=== PATIENT | female | born 1970 | race Caucasian/White ===

== ENCOUNTER → 2021-03-25 16:09 | Outpatient (CLI) | payer MEDICAID, SELFPAY ==
--- NOTE | 2021-03-25 16:13 | XR_ITS ---
FINAL REPORT CLINICAL HISTORY: chronic foot pain; obesity; simulated weight bearing FINDINGS: 3 views of the right foot were obtained. There is no acute fracture or dislocation. There is mild hallux valgus deformity. A small plantar spur is present. There is an osteophyte or spur along the dorsal distal talus seen on the lateral view. IMPRESSION: Degenerative changes without acute process. Reviewed, Interpreted and Dictated by John Irving MD Transcribed by Juan Grissom Authenticated by John Irving MD on 03/25/2021 04:58:08 PM [facility]
== END ==
PROVIDERS: PCP Emergency Medicine; Visit Provider Podiatrist
DX: M79.671 Pain in right foot (principal)
CPT/HCPCS: 73630

== ENCOUNTER → 2021-04-22 13:16 | Outpatient (CLI) | payer MEDICAID, SELFPAY ==
--- NOTE | 2021-04-22 13:29 | XR_ITS ---
FINAL REPORT CLINICAL HISTORY: fracture follow up COMPARISON: March 25, 2021 FINDINGS: RIGHT FOOT: Three right bearing views of the right foot were obtained. There is no definite acute fracture or dislocation. There are mild degenerative changes. There is mild hallux valgus deformity. There is pes planus deformity. There is a small plantar calcaneal spur. There is a chronic deformity of the distal 5th metatarsal. There is no soft tissue abnormality. IMPRESSION: No definite acute bony fracture. Reviewed, Interpreted and Dictated by Matt Campos III, MD Transcribed by Bettye Miranda Authenticated by Matt Campos III, MD on 04/22/2021 03:09:46 PM [facility]
== END ==
PROVIDERS: PCP Emergency Medicine; Visit Provider Podiatrist
DX: M79.671 Pain in right foot (principal); S92.001A Unspecified fracture of right calcaneus, initial encounter for closed fracture
CPT/HCPCS: 73630

== ENCOUNTER 2021-06-09 12:16 | Inpatient (IN) | payer MEDICAID, SELFPAY ==
[2021-06-09] VITALS (17 sets, daily range): BP systolic 102–199; BP diastolic 71–125; PULSE 97–120; RESP 18–20; TEMP 37.3–38.3; O2SAT 90–96; BMI 39.5; BMI 38.7
[2021-06-09 13:42] LABS: Sodium 141 mmol/L (136-145)
[2021-06-09 13:44] LABS: Blood Urea Nitrogen 7 mg/dl (7-17); Creatinine Clearance Estimated 699 mL/min (50-200); Estimated Glomerular Filt Rate 372 ml/min (>60); GFR (African American) 450 ML/MIN (>60)
[2021-06-09 13:45] LABS: Alanine Aminotransferase 12 U/L (12-78); Albumin Level 1.5 g/dl (3.5-5.0); Albumin/Globulin Ratio 0.9 (1.1-1.8); Alkaline Phosphatase 30 U/L (38-126); Anion Gap 4.4 mEq/L (5-15); Aspartate Amino Transferase 17 U/L (14-36); Bilirubin,Total 0.4 mg/dl (0.2-1.3); Carbon Dioxide 13 mmol/L (22.0-30.0); Globulin 1.6 g/dL (1.3-3.2); Glucose 56 mg/dl (74-100); Total Protein,Serum 3.1 g/dl (6.3-8.2)
[2021-06-09 13:51] LABS: C-Reactive Protein 108.1 mg/L (0-4)
[2021-06-09 13:55] LABS: Calcium 3.8 mg/dl (8.4-10.2); Chloride 126 mmol/L (98-107); Potassium 2.4 mmoL/L (3.5-5.1)
[2021-06-09 13:59] LABS: Basophils # 0.1 K/mm3 (0-0.2); Basophils % 0.7 % (0.1-2.0); Eosinophils # 0.1 K/mm3 (0.0-0.4); Hematocrit 37.5 % (37.0-47.0); Hemoglobin 12.1 g/dL (12.2-16.2); Lymphocytes # 2.6 K/mm3 (0.7-4.5); Lymphocytes % 18.8 % (10-50); Mean Corpuscular HGB Conc 32.3 g/dL (31.8-35.4); Mean Corpuscular Hemoglobin 30.8 pg (27.0-31.2); Mean Corpuscular Volume 95.3 fl (81-99); Mean Platelet Volume 12.1 fl (7.4-10.4); Monocytes # 0.9 K/mm3 (0.1-1.0); Monocytes % 6.4 % (1.7-9.3); Neutrophils % 73.2 % (37.0-80.0); Platelet Count 151 K/mm3 (142-424); Red Blood Count 3.94 M/mm3 (4.20-5.40); Red Cell Distribution Width 14.5 % (11.5-17.5); White Blood Count 13.7 K/mm3 (4.8-10.8)
--- NOTE | 2021-06-09 15:13 | HMH.EDGENADL ---
ED Disposition Clinical Impression: Cellulitis of right leg, Hypocalcemia, Hypokalemia Disposition: Admitted As Inpatient Condition on Discharge: Fair - Critical Care Critical Care Time: No Attestation: On 06/09/21, the high probability of a clinically significant, sudden or life threatening deterioration of the following system(s) required my full and direct attention, intervention and personal management. The time I documented below is in addition to time spent performing reported procedures but includes the following listed in this critical care notation. Medical Decision Making - [place] Inquiry Pt receiving controlled substance: No Vital Signs: 06/09/21 12:17 06/09/21 12:22 06/09/21 12:30 Temperature 100.0 F H Temperature Source Oral Pulse Rate 99 H 102 H Pulse Rate [Left Radial] 97 H Respiratory Rate 20 Blood Pressure 102/71 L 149/78 H Blood Pressure [Right Arm] 102/71 L Blood Pressure Mean Blood Pressure Mean [Right Arm] 81 Blood Pressure Source [Right Arm] Automatic Cuff Blood Pressure Position [Right Arm] Sitting 02 Sat by Pulse Oximetry 95 90 L 90 L Oxygen Delivery Method Room Air 06/09/21 13:00 06/09/21 13:41 06/09/21 13:44 Temperature Temperature Source Pulse Rate 102 H 105 H 100 H Pulse Rate [Left Radial] Respiratory Rate Blood Pressure 163/90 H 199/125 H 160/84 H Blood Pressure [Right Arm] Blood Pressure Mean 110 136 109 Blood Pressure Mean [Right Arm] Blood Pressure Source [Right Arm] Blood Pressure Position [Right Arm] 02 Sat by Pulse Oximetry 95 94 L 94 L Oxygen Delivery Method 06/09/21 14:00 06/09/21 14:28 06/09/21 14:30 Temperature Temperature Source Pulse Rate 104 H 103 H Pulse Rate [Left Radial] Respiratory Rate Blood Pressure 167/79 H 147/124 H 156/82 H Blood Pressure [Right Arm] Blood Pressure Mean 108 131 106 Blood Pressure Mean [Right Arm] Blood Pressure Source [Right Arm] Blood Pressure Position [Right Arm] 02 Sat by Pulse Oximetry 92 L 94 L Oxygen Delivery Method 06/09/21 15:00 06/09/21 15:54 06/09/21 15:59 Temperature 101.0 F H Temperature Source Oral Pulse Rate 108 H 108 H Pulse Rate [Left Radial] Respiratory Rate Blood Pressure 141/84 H 167/89 H Blood Pressure [Right Arm] Blood Pressure Mean 96 115 Blood Pressure Mean [Right Arm] Blood Pressure Source [Right Arm] Blood Pressure Position [Right Arm] 02 Sat by Pulse Oximetry Oxygen Delivery Method 06/09/21 16:30 06/09/21 17:00 Temperature Temperature Source Pulse Rate 105 H 107 H Pulse Rate [Left Radial] Respiratory Rate Blood Pressure 187/117 H 183/95 H Blood Pressure [Right Arm] Blood Pressure Mean 140 124 Blood Pressure Mean [Right Arm] Blood Pressure Source [Right Arm] Blood Pressure Position [Right Arm] 02 Sat by Pulse Oximetry 95 Oxygen Delivery Method - Lab Data Lab Results 06/09/21 12:20: WBC 13.7 H, RBC 3.94 L, Hgb 12.1 L, Hct 37.5, MCV 95.3, MCH 30.8, MCHC 32.3, RDW 14.5, Plt Count 151, MPV 12.1 H, Neut % (Auto) 73.2, Lymph % (Auto) 18.8, [place] % (Auto) 6.4, Eos % (Auto) 1.0, Baso % (Auto) 0.7, Neut # (Auto) 10.0 H, Lymph # (Auto) 2.6, [place] # (Auto) 0.9, Eos # (Auto) 0.1, Baso # (Auto) 0.1, ESR 39 H 06/09/21 12:20: Sodium 141, Potassium 2.4 L*, Chloride 126 H, Carbon Dioxide 13 L, Anion Gap 4.4 L, BUN 7, Creatinine 0.20 L, Estimated Creat Clear 699 H, Estimated GFR 372, Est GFR ( Amer) 450, Glucose 56 L, Calcium 3.8 L*, Total Bilirubin 0.4, AST 17, ALT 12, Alkaline Phosphatase 30 L, C-Reactive Protein 108.1 H, Total Protein 3.1 L, Albumin 1.5 L, Globulin 1.6, Albumin/Globulin Ratio 0.9 L 06/09/21 12:20: Lactate 1.0 06/09/21 12:20: Magnesium 1.6 06/09/21 12:20: Phosphorus 3.9 06/09/21 12:20: PTH Intact 62.4 H 06/09/21 15:05: SARS-CoV-2 (PCR) Not detected, Influenza A Untype (PCR) Not detected, Influenza Type B (PCR) Not detected Result diagrams:
[2021-06-09 15:15] LABS: Erythrocyte Sedimentation Rate 39 mm/hr (0-30)
[2021-06-09 15:15] LABS: Coronavirus 19, PCR Not Detected (NotDetected); Influenza A, PCR Not Detected (NotDetected); Influenza B, PCR Not Detected (NotDetected)
--- NOTE | 2021-06-09 15:52 | ECG_ITS ---
APPROVED REPORT Exam: Resting ECG HR:107 bpm ECG Measurements Heart Rate 107 AXES OH 160 P 29 QRSd 85 QRS 82 QT 310 T 71 QTc 373 Conclusion SINUS TACHYCARDIA ABNORMAL RHYTHM ECG UNCONFIRMED REPORT Electronically signed by : Gary Hines MD 06/12/2021 18:14:33
--- NOTE | 2021-06-09 15:58 | PC.NURSE ---
Checked temp oral 101.0
[2021-06-09 16:01] LABS: Phosphorous 3.9 mg/dl (2.5-4.5)
[2021-06-09 16:15] LABS: Intact Parathyroid Hormone 62.4 pg/mL (7.5-53.5)
[2021-06-09 16:24] LABS: Magnesium 1.6 mg/dl (1.6-2.3)
--- NOTE | 2021-06-09 16:26 | HMH.HP ---
*Admission Date: 06/09/21 *Chief complaint: leg swelling *History of present illness: 51 yr old female presents to ed with Complains of swelling, pain, redness right leg from [facility]. Patient states she thinks she was bit by something a couple of days ago. She said it awakened her from sleep when she felt a sting on the top of her right foot. Now has swelling redness and pain of her right lower extremity from the foot up to the knee. Patient states before she felt the sting she had begun running fevers on Thursday up to 102 degrees. No history of cellulitis of the lower extremity in the past. Patient was found to have cellulites and electrolyte abnormal and admitted for iv antibiotics and monitoring of labs [facility] History I have reviewed the patient's past medical history: Yes Medical History: Reports:: Anxiety, Depression, Diabetes Mellitus Type 2, Gastroesophageal Reflux Disease(GERD), Migraine *Have you ever received a pneumonia vaccine?: No *Have you received a flu vaccine this season?: Yes Other Medical History: Reports: Arthritis Other Surgeries: Yes: Cholecystectomy, , Hysterectomy-Total - *Social History Smoking Status: Current every day smoker Alcohol Intake: never *Occupational Status:: disabled *Travel in the last 8 weeks: None - Psychiatric History Pschychiatric History:: Reports:: Anxiety, Depression Family Hx:: No significant family history Review of Systems - Review of Systems Review of systems:: pertinent systems reviewed and negative unless documented below - Constitutional Reports fatigue, Reports fever(s), Denies body ache(s) - Eyes Denies blurry vision - ENT Denies bleeding gums - *Cardiovascular Denies chest pain at rest - *Respiratory Denies chest congestion - *Gastrointestinal Denies abdominal pain - *Genitourinary Denies abnormal periods, Denies urinary incontinence - *Musculoskeletal Denies abnormal walking - Integumentary/Breasts Reports wounds, Reports other, Denies bleeding lesions - *Neurologic Denies abnormal walking - Psychiatric Denies lack of enjoyment - Endocrine Denies excessive sweating - Hematologic/Lymphatic Denies easy bruising Meds Home Medications Medication Instructions Recorded Confirmed Type hydroxyzine pamoate 50 mg capsule 50 mg PO Q8 PRN cap 03/25/21 06/09/21 History metformin 1,000 mg tablet 500 mg PO DAILY tab 03/25/21 06/09/21 History paroxetine HCl 30 mg tablet 30 mg PO DAILY tab 03/25/21 06/09/21 History quetiapine 400 mg tablet,extended 400 mg PO BID tab 03/25/21 06/09/21 History release 24 hr Gabapentin 300 mg PO TID 06/09/21 06/09/21 History Allergies Allergy/AdvReac Type Severity Reaction Status Date / Time CODEINE Allergy Unknown Uncoded 03/10/17 15:39 PCN (PENICILLIN) Allergy Unknown Uncoded 03/10/17 15:39 Exam Vital signs and Labs for Last 24 Hours: Temp Pulse Resp BP Pulse Ox 101.0 F H 103 H 20 156/82 H 94 L 06/09/21 15:59 06/09/21 14:28 06/09/21 12:17 06/09/21 14:30 06/09/21 14:28 Laboratory Results - last 24 hr 06/09/21 12:20: WBC 13.7 H, RBC 3.94 L, Hgb 12.1 L, Hct 37.5, MCV 95.3, MCH 30.8, MCHC 32.3, RDW 14.5, Plt Count 151, MPV 12.1 H, Neut % (Auto) 73.2, Lymph % (Auto) 18.8, [place] % (Auto) 6.4, Eos % (Auto) 1.0, Baso % (Auto) 0.7, Neut # (Auto) 10.0 H, Lymph # (Auto) 2.6, [place] # (Auto) 0.9, Eos # (Auto) 0.1, Baso # (Auto) 0.1, ESR 39 H 06/09/21 12:20: Sodium 141, Potassium 2.4 L*, Chloride 126 H, Carbon Dioxide 13 L, Anion Gap 4.4 L, BUN 7, Creatinine 0.20 L, Estimated Creat Clear 699 H, Estimated GFR 372, Est GFR ( Amer) 450, Glucose 56 L, Calcium 3.8 L*, Total Bilirubin 0.4, AST 17, ALT 12, Alkaline Phosphatase 30 L, C-Reactive Protein 108.1 H, Total Protein 3.1 L, Albumin 1.5 L, Globulin 1.6, Albumin/Globulin Ratio 0.9 L 06/09/21 12:20: Lactate 1.0 06/09/21 12:20: Phosphorus 3.9 06/09/21 12:20: PTH Intact 62.4 H 06/09/21 15:05: SARS-CoV-2 (PCR) Not dete
[2021-06-09 17:26] LABS: Microscopic, Urine URINE MICROSCOPIC (MICROSCOPIC)
--- NOTE | 2021-06-09 17:29 | PC.NURSE ---
report called to Trudi MARTINEZ
[2021-06-09 17:39] LABS: Appearance,Urine CLEAR (Clear); Bilirubin,Urine Negative (Negative); Blood, Urine Negative (Negative); Color,Urine YELLOW (Yellow); Glucose,Urine (UA) Negative (Negative); Ketones,Urine Negative (Negative); Leukocyte Esterase,Urine TRACE (Negative); Nitrate,Urine Negative (Negative); PH,Urine 6.5 (5.0-8.5); Protein,Urine Negative (Negative); Specific Gravity, Urine 1.015 (1.005-1.030); Urobilinogen,Urine 0.2 EU/dl (0.2)
[2021-06-09 17:58] LABS: Bacteria,Urine Trace /lpf; RBC,Urine Occasional #/hpf (0-3)
--- NOTE | 2021-06-09 21:35 | PC.NURSE ---
Contacted [facility] and spoke with Laila, Pharmacist. Pt has quetiapine 400 ER ordered BID. We have regular quetiapine 100mg. Pharmacist says go ahead and give regular quetiapine for tonight.
[2021-06-09 22:16] LABS: Chloride 105 mmol/L (98-107)
[2021-06-09 22:17] LABS: Sodium 139 mmol/L (136-145)
[2021-06-09 22:19] LABS: Blood Urea Nitrogen 11 mg/dl (7-17); Creatinine Clearance Estimated 195 mL/min (50-200); Estimated Glomerular Filt Rate 88 ml/min (>60); GFR (African American) 106 ML/MIN (>60)
[2021-06-09 22:20] LABS: Calcium 7.9 mg/dl (8.4-10.2); Carbon Dioxide 30 mmol/L (22.0-30.0); Glucose 119 mg/dl (74-100)
[2021-06-10] VITALS: BP 126/68; PULSE 100; PULSE 102; RESP 20; TEMP 37.1; O2SAT 96
[2021-06-10 04:00] VITALS: BP 130/66; PULSE 102; RESP 18; TEMP 37.1; O2SAT 96
--- NOTE | 2021-06-10 04:41 | PC.NURSE ---
Late entry - Pt had K+ runs infusing at beginning of shift. Pt has one IV in the L AC, that occludes frequently d/t position. Pt refused to let us start another. IV antibiotics late. Called [facility] pharmacist for scheduling of antibiotics.
[2021-06-10 05:52] VITALS: BMI 38.9
--- NOTE | 2021-06-10 07:00 | CA_ITS ---
FINAL REPORT TECHNIQUE: Ultrasound images of the deep venous system were obtained from the right groin to the calf veins. CLINICAL HISTORY: swollen right leg, redness, pain in RLE. DM, GERD, morbid obesity. Patient denies trauma. States she felt a sting last week on this leg and then redness and pain began. FINDINGS: The deep venous system is normally compressible. Normal flow is identified. Note is made of a lymph node in the right groin measuring up to 4.4 cm. IMPRESSION: No evidence of right lower extremity DVT. Reviewed, Interpreted and Dictated by John Irving MD Transcribed by Bettye Miranda Authenticated by John Irving MD on 06/10/2021 10:42:[address] [facility]
[2021-06-10 07:10] LABS: Anion Gap 5.6 mEq/L (5-15); Blood Urea Nitrogen 9 mg/dl (7-17); Calcium 8.1 mg/dl (8.4-10.2); Carbon Dioxide 28 mmol/L (22.0-30.0); Chloride 108 mmol/L (98-107); Creatinine Clearance Estimated 273 mL/min (50-200); Estimated Glomerular Filt Rate 129 ml/min (>60); GFR (African American) 156 ML/MIN (>60); Glucose 137 mg/dl (74-100); Potassium 3.6 mmoL/L (3.5-5.1); Sodium 138 mmol/L (136-145)
--- NOTE | 2021-06-10 07:22 | P.CONPHA_ITS ---
[facility] Pharmacy VTE Monitoring - Patient Demographics Admission date: 06/09/21 Report Date: 06/10/21 Time: 07:22 Allergies/Adverse Reactions: Patient Allergies CODEINE Allergy (Unknown, Uncoded 03/10/17 15:39) PCN (PENICILLIN) Allergy (Unknown, Uncoded 03/10/17 15:39) Height: 1.85 m Weight: 133.129 kg Patient Problems: Current Active Problems Cellulitis of right leg (Acute) Hypocalcemia (Acute) Hypokalemia (Acute) - VTE Risk Labs: VTE Related Lab Results Hgb 12.1 g/dL (12.2-16.2) L 06/09/21 12:20 Hct 37.5 % (37.0-47.0) 06/09/21 12:20 Plt Count 151 K/mm3 (142-424) 06/09/21 12:20 BUN 9 mg/dl (7-17) 06/10/21 06:33 Creatinine 0.50 mg/dl (0.52-1.04) L D 06/10/21 06:33 Estimated Creat Clear 273 mL/min (50-200) 06/10/21 06:33 VTE Score: 2 - Prophylaxis VTE Prophylaxis Ordered?: Yes Types of VTE Prophylaxis: TEDS Knee High, Pharmacological Location of Applied Device: Bilateral Lower Extremeties Pharmacologic Type: Enoxaparin
[2021-06-10 07:29] VITALS: BP 159/81; PULSE 110; RESP 18; TEMP 37.2; O2SAT 94
--- NOTE | 2021-06-10 07:55 | HMH.PHAINT ---
MEDICATION RECONCILIATION COMPLETED ON PATIENT USING [facility]. -PEE KNOX, JACKD
--- NOTE | 2021-06-10 10:28 | SW/DCPLANNER ---
This patient currently resides at [facility]. I spoke with Travon at [facility]: patient does well at this facility and they anticipate patient can return pending no setbacks. I will continue to follow up with Travon until patient is medically stable for discharge. Discharge date is unknown at this time.
[2021-06-10 10:38] VITALS: BMI 38.8
[2021-06-10 10:59] VITALS: BP 160/65; PULSE 110; RESP 18; TEMP 36.8; O2SAT 93
--- NOTE | 2021-06-10 12:45 | HMH.ACPN2 ---
Internal Medicine - PN: Subj *Date: 06/10/21 *Time: 08:00 Interval history: pt laying in bed states no c/o Exam Vital signs and Labs for Last 24 Hours: Temp Pulse Resp BP Pulse Ox 98.2 F 110 H 18 160/65 H 93 L 06/10/21 10:59 06/10/21 10:59 06/10/21 10:59 06/10/21 10:59 06/10/21 10:59 Laboratory Results - last 24 hr 06/09/21 12:20: WBC 13.7 H, RBC 3.94 L, Hgb 12.1 L, Hct 37.5, MCV 95.3, MCH 30.8, MCHC 32.3, RDW 14.5, Plt Count 151, MPV 12.1 H, Neut % (Auto) 73.2, Lymph % (Auto) 18.8, [place] % (Auto) 6.4, Eos % (Auto) 1.0, Baso % (Auto) 0.7, Neut # (Auto) 10.0 H, Lymph # (Auto) 2.6, [place] # (Auto) 0.9, Eos # (Auto) 0.1, Baso # (Auto) 0.1, ESR 39 H 06/09/21 12:20: Sodium 141, Potassium 2.4 L*, Chloride 126 H, Carbon Dioxide 13 L, Anion Gap 4.4 L, BUN 7, Creatinine 0.20 L, Estimated Creat Clear 699 H, Estimated GFR 372, Est GFR ( Amer) 450, Glucose 56 L, Calcium 3.8 L*, Total Bilirubin 0.4, AST 17, ALT 12, Alkaline Phosphatase 30 L, C-Reactive Protein 108.1 H, Total Protein 3.1 L, Albumin 1.5 L, Globulin 1.6, Albumin/Globulin Ratio 0.9 L 06/09/21 12:20: Lactate 1.0 06/09/21 12:20: Magnesium 1.6 06/09/21 12:20: Phosphorus 3.9 06/09/21 12:20: PTH Intact 62.4 H 06/09/21 15:05: SARS-CoV-2 (PCR) Not detected, Influenza A Untype (PCR) Not detected, Influenza Type B (PCR) Not detected 06/09/21 17:18: Urine Color Yellow, Urine Appearance Clear, Urine pH 6.5, Ur Specific [place] 1.015, Urine Protein Negative, Urine Glucose (UA) Negative, Urine Ketones Negative, Urine Blood Negative, Urine Nitrate Negative, Urine Bilirubin Negative, Urine Urobilinogen 0.2, Ur Leukocyte Esterase Trace, Urine RBC Occasional, Urine WBC 3-5, Ur Squamous Epith Cells 5-10, Urine Bacteria Trace 06/09/21 21:55: Sodium 139, Potassium 4.0 D, Chloride 105, Carbon Dioxide 30, Anion Gap 8.0, BUN 11 D, Creatinine 0.70 D, Estimated Creat Clear 195, Estimated GFR 88, Est GFR ( Amer) 106 D, Glucose 119 H D, Calcium 7.9 L 06/10/21 06:33: Sodium 138, Potassium 3.6, Chloride 108 H, Carbon Dioxide 28, Anion Gap 5.6, BUN 9, Creatinine 0.50 L D, Estimated Creat Clear 273, Estimated GFR 129, Est GFR ( Amer) 156 D, Glucose 137 H, Calcium 8.1 L I & O for Last 24 hours: Intake & Output 06/08/21 06/09/21 06/10/21 06/11/21 11:59 11:59 11:59 11:59 Intake Total 480 / 480 160 / 160 Balance 480 / 480 160 / 160 Weight 293 lb 3.437 oz - Constitutional no acute distress, obese - *Routine HEENT Exam Head: Present: normocephalic Eye: Present: PERRL ENT: Present: mucous membranes moist - *Routine Neck Exam Present: supple. Absent: lymphadenopathy - *Routine Respiratory Exam Present: CTA bilaterally - *Routine Cardiovascular Exam Present: RRR - *Routine Abdominal Exam Present: soft, normoactive bowel sounds - *Routine Extremities Exam Present: normal capillary refill. Absent: cyanosis, clubbing, edema Comments: redness and swelling, redness up past knee - *Routine Skin Exam Present: warm. Absent: rash Comments: dark area to ankle - *Routine Neurological Exam Present: alert, oriented X3 Assessment and Plan (1) Cellulitis of right leg Status: Acute Category: Medical Code(s): L03.115 - Cellulitis of right lower limb (2) Hypocalcemia Status: Acute Category: Medical Code(s): E83.51 - Hypocalcemia (3) Hypokalemia Status: Acute Category: Medical Code(s): E87.6 - Hypokalemia - Assessment and plan all Dx Assessment and Plan for all problems:: rounded with dr espinosa all orders per dr espinosa iv antibiotics
[2021-06-10 15:11] VITALS: BP 124/62; PULSE 101; RESP 18; TEMP 37; O2SAT 95
--- NOTE | 2021-06-10 16:14 | PC.NURSE ---
patient has done well this shift. leg remains red and tight. open callouses noted on bottom of foot. more complaints with it towards end of shift. vitals stable. ambulates to bathroom with stand by assistance. tolerating diet. no other complaints noted
[2021-06-10 20:00] VITALS: BP 136/64; PULSE 68; RESP 17; TEMP 36.7; O2SAT 96
[2021-06-11 00:08] LABS: Vancomycin,Trough 14.9 ug/mL (5.0-10.0)
--- NOTE | 2021-06-11 00:23 | PC.NURSE ---
Addendum entered by Savita Pisano RN 06/11/21 00:42: Verified piggybacking Vanc to 1/2NS with Sagar from [facility]; compatible Original Note: Paged [facility] at 0025 and spoke with Sagar to report a Vancomycin trough of 14.9; okay to give the midnight dose.
--- NOTE | 2021-06-11 03:19 | PC.NURSE ---
Alicia from lab called with a preliminary positive blood culture on patient at 314 Name, , and result verified x2/ MD on called made aware at 318
[2021-06-11 04:00] VITALS: BP 141/73; PULSE 100; RESP 17; TEMP 36.6; O2SAT 96
[2021-06-11 04:39] LABS: Basophils # 0.1 K/mm3 (0-0.2); Basophils % 0.5 % (0.1-2.0); Eosinophils # 0.1 K/mm3 (0.0-0.4); Eosinophils % 0.3 % (0.1-12.0); Hematocrit 33.6 % (37.0-47.0); Hemoglobin 11.1 g/dL (12.2-16.2); Lymphocytes # 2.8 K/mm3 (0.7-4.5); Lymphocytes % 17.1 % (10-50); Mean Corpuscular HGB Conc 32.9 g/dL (31.8-35.4); Mean Corpuscular Hemoglobin 31.2 pg (27.0-31.2); Mean Corpuscular Volume 94.9 fl (81-99); Mean Platelet Volume 11.2 fl (7.4-10.4); Monocytes % 5.8 % (1.7-9.3); Neutrophils # 12.5 K/mm3 (1.8-7.8); Neutrophils % 76.3 % (37.0-80.0); Platelet Count 174 K/mm3 (142-424); Red Blood Count 3.54 M/mm3 (4.20-5.40); Red Cell Distribution Width 14.7 % (11.5-17.5); White Blood Count 16.4 K/mm3 (4.8-10.8)
[2021-06-11 04:44] LABS: MANUAL DIFFERENTIAL MANUAL DIFFERENTIAL (MANUAL DIFF)
[2021-06-11 04:49] LABS: Anion Gap 9.3 mEq/L (5-15); Blood Urea Nitrogen 8 mg/dl (7-17); Calcium 7.9 mg/dl (8.4-10.2); Carbon Dioxide 24 mmol/L (22.0-30.0); Chloride 107 mmol/L (98-107); Creatinine Clearance Estimated 273 mL/min (50-200); Estimated Glomerular Filt Rate 129 ml/min (>60); GFR (African American) 156 ML/MIN (>60); Glucose 151 mg/dl (74-100); Potassium 3.3 mmoL/L (3.5-5.1); Sodium 137 mmol/L (136-145)
[2021-06-11 04:55] LABS: Vancomycin,Peak 25.1 ug/ml (11-39)
[2021-06-11 05:27] LABS: Eosinophils % 2 % (0-3); Lymphocytes % 23 % (10-50); Monocytes % 2 % (2-9); Neutrophils % 73 % (42-76); Platelet Estimate Normal; RBC Morphology Normal; Total Cells Counted 100
[2021-06-11 05:35] VITALS: BMI 38.9
[2021-06-11 08:00] VITALS: BP 140/78; PULSE 71; RESP 16; TEMP 37.1; O2SAT 96
--- NOTE | 2021-06-11 09:20 | P.CONPHA_ITS ---
- Pharmacy Consult Date: 06/11/21 Time: 09:20 Referring provider: YUNIEL Reason for Consult:: monitor vancomycin therapy Allergies and ADEs:: Allergies Allergy/AdvReac Type Severity Reaction Status Date / Time nut - unspecified Allergy Severe Swelling Verified 06/11/21 06:08 of Lip/Tongue/Throat CODEINE Allergy Unknown Uncoded 03/10/17 15:39 PCN (PENICILLIN) Allergy Unknown Uncoded 03/10/17 15:39 Home Medications:: Home Medications Medication Instructions Recorded Confirmed Type hydroxyzine pamoate 50 mg capsule 50 mg PO TIDP PRN cap 03/25/21 06/10/21 History paroxetine HCl 30 mg tablet 30 mg PO DAILY tab 03/25/21 06/09/21 History quetiapine 400 mg tablet,extended 400 mg PO BID tab 03/25/21 06/09/21 History release 24 hr Gabapentin 300 mg PO TID 06/09/21 06/09/21 History Acetaminophen [Acetaminophen 325mg 650 mg PO Q8HP PRN 06/10/21 06/10/21 History tab] Ibuprofen [Ibuprofen 600mg 600 mg PO Q6HP PRN 06/10/21 06/10/21 History Tablet] Loperamide HCl [Anti-Diarrheal] 2 mg PO Q6HP PRN 06/10/21 06/10/21 History Metformin HCl 500 mg PO HS 06/10/21 06/10/21 History ondansetron HCL [Ondansetron 4mg 4 mg PO QIDP PRN 06/10/21 06/10/21 History tab*] Height: 1.85 m Weight: 133.311 kg Laboratory Results:: Laboratory Results - last 24 hr 06/10/21 23:35: Vancomycin Trough 14.9 H 06/11/21 04:20: Vancomycin Peak 25.1 06/11/21 04:20: WBC 16.4 H, RBC 3.54 L, Hgb 11.1 L, Hct 33.6 L, MCV 94.9, MCH 31.2, MCHC 32.9, RDW 14.7, Plt Count 174, MPV 11.2 H, Neut % (Auto) 76.3, Lymph % (Auto) 17.1, [place] % (Auto) 5.8, Eos % (Auto) 0.3, Baso % (Auto) 0.5, Neut # (Auto) 12.5 H, Lymph # (Auto) 2.8, [place] # (Auto) 1.0, Eos # (Auto) 0.1, Baso # (Auto) 0.1, Total Counted 100, Neutrophils % (Manual) 73, Lymphocytes % (Manual) 23, Monocytes % (Manual) 2, Eosinophils % (Manual) 2, Platelet Estimate Normal, RBC Morphology Normal 06/11/21 04:20: Sodium 137, Potassium 3.3 L, Chloride 107, Carbon Dioxide 24, Anion Gap 9.3, BUN 8, Creatinine 0.50 L, Estimated Creat Clear 273, Estimated GFR 129, Est GFR ( Amer) 156, Glucose 151 H, Calcium 7.9 L Medical History: Reports:: Anxiety, Depression, Gastroesophageal Reflux Disease(GERD), Migraine Denies:: Cancer, Diabetes Mellitus Type 1, Diabetes Mellitus Type 2, MRSA Assessment and Plan (1) Cellulitis of right leg Status: Acute Category: Medical Code(s): L03.115 - Cellulitis of right lower limb (2) Hypocalcemia Status: Acute Category: Medical Code(s): E83.51 - Hypocalcemia (3) Hypokalemia Status: Acute Category: Medical Code(s): E87.6 - Hypokalemia - Assessment and plan all Dx Assessment and Plan for all problems:: Trough and peak drawn overnight. Appropriate levels, will continue vancomycin 1750mg q0yrary. Pharmacy will follow daily
--- NOTE | 2021-06-11 09:33 | HMH.ACPN2 ---
Internal Medicine - PN: Subj *Date: 06/11/21 *Time: 17:18 Interval history: 51-year-old female patient resting quietly in bed she denies any chest pain or shortness of breath, she reports pain is at a tolerable level. Right lower extremity redness and edema appears better today than yesterday. She reports she has been out of bed and up to chair for meals. Venous Doppler right lower extremity negative for DVT. Exam Vital signs and Labs for Last 24 Hours: Temp Pulse Resp BP Pulse Ox 98.7 F 71 16 140/78 96 06/11/21 08:00 06/11/21 08:00 06/11/21 08:00 06/11/21 08:00 06/11/21 08:00 Laboratory Results - last 24 hr 06/10/21 23:35: Vancomycin Trough 14.9 H 06/11/21 04:20: Vancomycin Peak 25.1 06/11/21 04:20: WBC 16.4 H, RBC 3.54 L, Hgb 11.1 L, Hct 33.6 L, MCV 94.9, MCH 31.2, MCHC 32.9, RDW 14.7, Plt Count 174, MPV 11.2 H, Neut % (Auto) 76.3, Lymph % (Auto) 17.1, [place] % (Auto) 5.8, Eos % (Auto) 0.3, Baso % (Auto) 0.5, Neut # (Auto) 12.5 H, Lymph # (Auto) 2.8, [place] # (Auto) 1.0, Eos # (Auto) 0.1, Baso # (Auto) 0.1, Total Counted 100, Neutrophils % (Manual) 73, Lymphocytes % (Manual) 23, Monocytes % (Manual) 2, Eosinophils % (Manual) 2, Platelet Estimate Normal, RBC Morphology Normal 06/11/21 04:20: Sodium 137, Potassium 3.3 L, Chloride 107, Carbon Dioxide 24, Anion Gap 9.3, BUN 8, Creatinine 0.50 L, Estimated Creat Clear 273, Estimated GFR 129, Est GFR ( Amer) 156, Glucose 151 H, Calcium 7.9 L I & O for Last 24 hours: Intake & Output 06/08/21 06/09/21 06/10/21 06/11/21 23:59 23:59 23:59 23:59 Intake Total 1000 / 1000 902 / 902 Output Total 400 / 400 Balance 1000 / 1000 502 / 502 Weight 293 lb 9 oz 293 lb 3.437 oz 293 lb 14.4 oz Microbiology Reports for the Last 24 Hours: Microbiology 06/09/21 12:20 Blood Blood Culture - Preliminary - Constitutional no acute distress, obese, chronically ill appearing - *Routine HEENT Exam Head: Present: normocephalic Eye: Present: EOMI ENT: Present: mucous membranes moist - *Routine Neck Exam Present: trachea midline. Absent: tracheal deviation - *Routine Respiratory Exam Present: CTA bilaterally. Absent: accessory muscle use - *Routine Cardiovascular Exam Present: RRR - *Routine Abdominal Exam Present: soft, normoactive bowel sounds. Absent: tenderness, firm - *Routine Extremities Exam Present: edema, pulses intact, tenderness. Absent: cyanosis Comments: Right lower extremity redness/edema/warmth foot to just above the knee - *Routine Skin Exam Present: intact, erythema, dry. Absent: cyanosis Comments: Dark area to right outer ankle - Routine Psychiatric Exam Present: normal affect, normal thought process. Absent: auditory hallucinations Assessment and Plan (1) Cellulitis of right leg Status: Acute Category: Medical Code(s): L03.115 - Cellulitis of right lower limb (2) Hypocalcemia Status: Acute Category: Medical Code(s): E83.51 - Hypocalcemia (3) Hypokalemia Status: Acute Category: Medical Code(s): E87.6 - Hypokalemia (4) Severe obesity (BMI 35.0-39.9) with comorbidity Status: Acute Category: Medical Code(s): E66.01 - Morbid (severe) obesity due to excess calories - Assessment and plan all Dx Assessment and Plan for all problems:: Rounded with Dr. Street, all orders per Dr. Street: 1. Continue current medical regimen 2. Up to chair for all meals 3. Out of bed ambulating in room
[2021-06-11 12:00] VITALS: BP 129/64; PULSE 101; RESP 19; TEMP 36.7; O2SAT 95
[2021-06-11 16:00] VITALS: BP 149/76; PULSE 103; RESP 18; TEMP 37.3; O2SAT 93
[2021-06-11 20:00] VITALS: BP 132/78; PULSE 105; RESP 20; TEMP 37.5; O2SAT 94
[2021-06-12] VITALS: BP 112/73; PULSE 110; RESP 16; TEMP 36.6; O2SAT 93
[2021-06-12 04:00] VITALS: BP 121/70; PULSE 93; RESP 20; TEMP 36.9; O2SAT 90
[2021-06-12 04:59] VITALS: BMI 39.4
[2021-06-12 07:20] LABS: Anion Gap 7.2 mEq/L (5-15); Blood Urea Nitrogen 6 mg/dl (7-17); Carbon Dioxide 29 mmol/L (22.0-30.0); Chloride 107 mmol/L (98-107); Creatinine Clearance Estimated 278 mL/min (50-200); Estimated Glomerular Filt Rate 129 ml/min (>60); GFR (African American) 156 ML/MIN (>60); Glucose 117 mg/dl (74-100); Potassium 3.2 mmoL/L (3.5-5.1); Sodium 140 mmol/L (136-145)
[2021-06-12 07:27] LABS: Basophils # 0.1 K/mm3 (0-0.2); Basophils % 0.7 % (0.1-2.0); Eosinophils # 0.1 K/mm3 (0.0-0.4); Eosinophils % 0.7 % (0.1-12.0); Hematocrit 34.4 % (37.0-47.0); Hemoglobin 10.7 g/dL (12.2-16.2); Lymphocytes # 2.9 K/mm3 (0.7-4.5); Lymphocytes % 19.1 % (10-50); Mean Corpuscular HGB Conc 31.1 g/dL (31.8-35.4); Mean Corpuscular Hemoglobin 30.2 pg (27.0-31.2); Mean Corpuscular Volume 97.1 fl (81-99); Mean Platelet Volume 10.7 fl (7.4-10.4); Monocytes # 0.7 K/mm3 (0.1-1.0); Monocytes % 4.3 % (1.7-9.3); Neutrophils # 11.3 K/mm3 (1.8-7.8); Neutrophils % 75.2 % (37.0-80.0); Platelet Count 211 K/mm3 (142-424); Red Blood Count 3.54 M/mm3 (4.20-5.40); Red Cell Distribution Width 14.7 % (11.5-17.5); White Blood Count 15.1 K/mm3 (4.8-10.8)
[2021-06-12 07:32] LABS: MANUAL DIFFERENTIAL MANUAL DIFFERENTIAL (MANUAL DIFF)
[2021-06-12 08:00] VITALS: BP 132/80; PULSE 98; RESP 16; TEMP 37.3; O2SAT 94
[2021-06-12 09:10] LABS: Lymphocytes % 10 % (10-50); Monocytes % 5 % (2-9); Neutrophils % 85 % (42-76); Platelet Estimate Normal; Total Cells Counted 100
--- NOTE | 2021-06-12 10:26 | CT_ITS ---
FINAL REPORT CLINICAL HISTORY: r/o blockages or clot rt leg, eval common iliacs for blockage. Neg for DVT's in right leg. FINDINGS: Technique: The patient was injected with intravenous contrast. Axial images through the abdomen and pelvis were performed. This study was performed with techniques to keep radiation doses as low as reasonably achievable (ALARA). Individualized dose reduction techniques using automated exposure control or adjustment of mA and/or kV according to the patient's size were employed. Abdomen: The lung bases are clear. The liver parenchyma is homogeneous. There is a benign-appearing cyst in the caudate lobe of the liver measuring 1.1 cm. The gallbladder surgically absent. The spleen is abnormally enlarged measuring 16 cm in craniocaudal dimension. There is an ovoid low-attenuation focus in the left adrenal gland measuring 2.0 x 1.3 cm consistent with an adenoma. The pancreas is unremarkable. There are multiple small nonobstructing stones in the right renal collecting system. The iliac arteries are patent and non-aneurysmal. There is mild plaque formation within the common and external iliac arteries bilaterally. The aorta is normal in caliber. There is some asymmetric right inguinal adenopathy. Inguinal lymph nodes measure up to 2.7 cm in greatest dimension. Pelvis: The appendix is not identified. The urinary bladder is unremarkable. There is no free fluid. IMPRESSION: Small kidney stones in the right kidney. Mild atherosclerotic disease in the iliac vessels. Moderate splenomegaly, etiology unclear. Abnormally enlarged right inguinal lymph nodes. Given the presence of splenomegaly and the inguinal adenopathy, the possibility of underlying lymphoma cannot be entirely excluded. Consider roderick tissue sampling. PET scan may be of value. Reviewed, Interpreted and Dictated by John Irving MD Transcribed by Ena Rob Authenticated by John Irving MD on 06/12/2021 02:03:[address] [facility]
--- NOTE | 2021-06-12 11:15 | P.PN_ITS ---
Internal Medicine - PN: Subj *Date: 06/12/21 *Time: 08:35 Interval history: pt laying in bed, redness increased since yesterday Exam Vital signs and Labs for Last 24 Hours: Temp Pulse Resp BP Pulse Ox 99.1 F 98 H 16 132/80 94 L 06/12/21 08:00 06/12/21 08:00 06/12/21 08:00 06/12/21 08:00 06/12/21 08:00 Laboratory Results - last 24 hr 06/12/21 06:12: WBC 15.1 H, RBC 3.54 L, Hgb 10.7 L, Hct 34.4 L, MCV 97.1, MCH 30.2, MCHC 31.1 L, RDW 14.7, Plt Count 211, MPV 10.7 H, Neut % (Auto) 75.2, Lymph % (Auto) 19.1, Hockley % (Auto) 4.3, Eos % (Auto) 0.7, Baso % (Auto) 0.7, Neut # (Auto) 11.3 H, Lymph # (Auto) 2.9, Hockley # (Auto) 0.7, Eos # (Auto) 0.1, Baso # (Auto) 0.1, Total Counted 100, Neutrophils % (Manual) 85 H, Lymphocytes % (Manual) 10, Monocytes % (Manual) 5, Platelet Estimate Normal 06/12/21 06:12: Sodium 140, Potassium 3.2 L, Chloride 107, Carbon Dioxide 29, Anion Gap 7.2, BUN 6 L, Creatinine 0.50 L, Estimated Creat Clear 278, Estimated GFR 129, Est GFR ( Amer) 156, Glucose 117 H, Calcium 8.0 L I & O for Last 24 hours: Intake & Output 06/09/21 06/10/21 06/11/21 06/12/21 11:59 11:59 11:59 11:59 Intake Total 480 / 480 1422 / 1422 2800 / 2800 Output Total 400 / 400 750 / 750 Balance 480 / 480 1022 / 1022 2049 / 2049 Weight 293 lb 3.437 oz 293 lb 14.4 oz 297 lb 14.4 oz Microbiology Reports for the Last 24 Hours: Microbiology 06/09/21 12:20 Blood Blood Culture - Preliminary NO GROWTH AFTER 48 HOURS - Constitutional no acute distress - *Routine HEENT Exam Head: Present: normocephalic Eye: Present: PERRL ENT: Present: mucous membranes moist - *Routine Neck Exam Present: supple. Absent: lymphadenopathy - *Routine Respiratory Exam Present: CTA bilaterally - *Routine Cardiovascular Exam Present: RRR - *Routine Abdominal Exam Present: soft, normoactive bowel sounds. Absent: tenderness - *Routine Extremities Exam Present: edema Comments: redness extends up rt leg to half way up thigh purple area to ankle cut to rt great toe - *Routine Skin Exam Present: erythema, warm, wounds. Absent: rash - *Routine Neurological Exam Present: alert, oriented X3 Assessment and Plan (1) Cellulitis of right leg Status: Acute Category: Medical Code(s): L03.115 - Cellulitis of right lower limb (2) Hypocalcemia Status: Acute Category: Medical Code(s): E83.51 - Hypocalcemia (3) Hypokalemia Status: Acute Category: Medical Code(s): E87.6 - Hypokalemia (4) Severe obesity (BMI 35.0-39.9) with comorbidity Status: Acute Category: Medical Code(s): E66.01 - Morbid (severe) obesity due to excess calories - Assessment and plan all Dx Assessment and Plan for all problems:: rounded with dr menjivar all orders per dr espinosa add clindamycin have podiatry evaluate cta abd/pelvis
--- NOTE | 2021-06-12 11:51 | CT_ITS ---
FINAL REPORT TECHNIQUE: Thin section axial CT images with coronal and sagittal reformats were performed. This study was performed with techniques to keep radiation doses as low as reasonably achievable (ALARA). Individualized dose reduction techniques using automated exposure control or adjustment of mA and/or kV according to the patient''s size were employed. CLINICAL HISTORY: swelling - possible osteo FINDINGS: There is marked soft tissue swelling over the dorsum of the foot measuring 3.3 cm in depth. There are prominent osteophytes along the dorsal intertarsal joints, largest is seen arising from the dorsal distal talus. There is a vertical lucency through the posterior talus which may be due to old fracture. This does not appear to represent an os trigonum. Finding is well-seen on images 43 through 45 of series 602. There is healed fracture deformity of the distal fibular diaphysis. The mortise is intact. There is no evidence of bony erosion or periosteal reaction. There are hammertoe deformities of the second through fifth digits. IMPRESSION: Old fracture of the distal fibula. Probable old fracture of the posterior distal talus. Moderate hypertrophic changes at the intertarsal joints. Extensive soft tissue swelling without definite bony erosion or periosteal reaction. Reviewed, Interpreted and Dictated by John Irving MD Transcribed by Ena Rob Authenticated by John Irving MD on 06/12/2021 03:23:20 PM [facility]
--- NOTE | 2021-06-12 12:25 | XR_ITS ---
FINAL REPORT CLINICAL HISTORY: right ankle cellulitis and edema FINDINGS: RIGHT ANKLE: Three views of the right ankle were obtained. There is healed fracture deformity of the distal fibula. There is no acute fracture or dislocation. There is a small plantar spur. The joint spaces and mortise are intact. There is prominent soft tissue swelling. IMPRESSION: Swelling with no acute bony abnormality. Reviewed, Interpreted and Dictated by John Irving MD Transcribed by Juan Grissom Authenticated by John Irving MD on 06/12/2021 02:38:44 PM [facility]
--- NOTE | 2021-06-12 12:27 | US_ITS ---
FINAL REPORT CLINICAL HISTORY: decreased pedal pulses, edema, red angry RLE ankle to knee. hot to touch, smoker FINDINGS: ANKLE/BRACHIAL INDICES FINDINGS: Pressure indices are as follows: RIGHT LOWER EXTREMITY: Ankle brachial pressure index: 1.19 Comments: normal LEFT LOWER EXTREMITY: Ankle brachial pressure index: 1.18 Comments: normal IMPRESSION: No evidence of significant obstructive peripheral vascular disease of the lower extremities. Reviewed, Interpreted and Dictated by John Irving MD Transcribed by Juan Grissom Authenticated by John Irving MD on 06/13/2021 09:18:49 AM [facility]
--- NOTE | 2021-06-12 12:31 | XR_ITS ---
FINAL REPORT CLINICAL HISTORY: lower extremity edema, cellulitis, open wound FINDINGS: Three views of the right foot were obtained. There is no acute fracture or dislocation. The joint spaces are intact. There is a small plantar spur. There is soft tissue swelling over the dorsum of the foot up to 3.0 cm. IMPRESSION: Swelling with no acute bony abnormality. Reviewed, Interpreted and Dictated by John Irving MD Transcribed by Juan Grissom Authenticated by John Irving MD on 06/12/2021 02:38:[address] [facility]
--- NOTE | 2021-06-12 12:31 | XR_ITS ---
FINAL REPORT CLINICAL HISTORY: lower extremity edema, cellulitis, wound, callus FINDINGS: Three views of the left foot were obtained. There is no acute fracture or dislocation. There are moderate hypertrophic changes involving the tarsometatarsal joints. There are mild hypertrophic changes at the 1st MTP joint. There is a small plantar spur. IMPRESSION: Mild and moderate hypertrophic changes. Reviewed, Interpreted and Dictated by John Irving MD Transcribed by Juan Grissom Authenticated by John Irving MD on 06/12/2021 02:38:48 PM [facility]
--- NOTE | 2021-06-12 12:38 | HMH.ORTHOCON ---
*Admission Date: 06/09/21 <Viviane Arguello - 06/12/21 12:47> *Reason for consult:: right lower extremity edema, and cellulitis. <Viviane Arguello 06/12/21 12:47> *History of present illness: 51 yr old female presents to ed with Complains of swelling, pain, redness right leg from [facility]. Patient states she thinks she was bit by something a couple of days ago. She said it awakened her from sleep when she felt a sting on the top of her right foot. Now has swelling redness and pain of her right lower extremity from the foot up to the knee. Patient states before she felt the sting she had begun running fevers on Thursday up to 102 degrees. No history of cellulitis of the lower extremity in the past. Patient was found to have cellulites and electrolyte abnormal and admitted for iv antibiotics and monitoring of labs. PODIATRY CONSULT: Patient is a 51-year-old diabetic female known to podiatry team who was admitted 06/09/21 for right lower extremity edema and electrolyte abnormalities. PCP team consulted podiatry for management of right lower extremity edema and cellulitis. Patient currently at [facility]. Patient sitting up in bed. Alert and oriented x 3. No acute distress noted. Right lower leg, right ankle, and right foot with 3+ edema noted. Right lateral malleolus area skin purple in color. B/l feet with calluses noted. Pedal pulses decreased. We will keep pt NPO, obtain b/l foot 3 view x-ray, right ankle x- ray and NEGR[facility]. Ct right foot ordered by PCP. We will review results and treat accordingly. <Viviane Arguello 06/12/21 17:45> [facility] History Medical History: Reports:: Anxiety, Depression, Gastroesophageal Reflux Disease(GERD), Migraine Denies:: Cancer, Diabetes Mellitus Type 1, Diabetes Mellitus Type 2, MRSA <Viviane Arguello 06/12/21 12:47> *Have you ever received a pneumonia vaccine?: Yes <Viviane Arguello 06/12/21 12:47> *Have you received a flu vaccine this season?: Yes <Viviane Arguello 06/12/21 12:47> Other Medical History: Reports: Arthritis <Viviane Arguello 06/12/21 12:47> Other Surgeries: Yes: Cholecystectomy, , Hysterectomy-Total [facility] 06/12/21 12:47> Amputation: No <Viviane Arguello 06/12/21 12:47> Fractures: No <[facility] 06/12/21 12:47> - *Social History Last grade of school completed: Some college <[facility] 06/12/21 12:47> Smoking Status: Current every day sm[facility] 06/12/[facility] 12:47> Tobacco Type: cigarettes <[facility] 06/12/21 12:47> # Packs/Day (cigarettes): 1 <[facility] 06/12/21 12:47> Alcohol Intake: never <[facility] 06/12/21 12:47> Substance Use Type: former substance user <[facility] 06/12/21 12:47> *Occupational Status:: disabled <[facility] 06/12/21 12:47> *Travel in the last 8 weeks: None <[facility] 06/12/21 12:47> - Psychiatric History Pschychiatric History:: Reports:: Anxiety, Depression <[facility] 06/12/21 12:47> Family Hx:: No significant family history <[facility] 06/12/21 12:47> Review of Systems - *Neurologic Denies abnormal walking <[facility] 06/12/21 12:47> Meds Home Medications Medication Instructions Recorded Confirmed Type hydroxyzine pamoate 50 mg capsule 50 mg PO TIDP PRN cap 03/25/21 06/10/21 History paroxetine HCl 30 mg tablet 30 mg PO DAILY tab 03/25/21 06/09/21 History quetiapine 400 mg tablet,extended 400 mg PO BID tab 03/25/21 06/09/21 History release 24 hr Gabapentin 300 mg PO TID 06/09/21 06/09/21 History Acetaminophen [Acetaminophen 325mg 650 mg PO Q8HP PRN 06/10/21 06/10/21 History tab] Ibuprofen [Ibuprofen 600mg 600 mg PO Q6HP PRN 06/10/21 06/10/21 History Tablet] Loperamide HCl [Anti-Diarrheal] 2 mg PO Q6HP PRN 06/10/21 06/10/21 History Metformin HCl 500 mg PO HS 06/10/21 06/10/21 History ondansetron HCL [Ondansetron 4mg 4 mg PO QIDP PRN 06/10/21 06/10/21 History tab*]
[2021-06-12 16:00] VITALS: BP 156/70; PULSE 95; RESP 16; TEMP 37.1; O2SAT 96
[2021-06-12 17:23] LABS: Vancomycin,Trough 14.6 ug/mL (5.0-10.0)
--- NOTE | 2021-06-12 17:32 | PC.NURSE ---
Per night watch pharmacist, it is ok to give 1600 vanc dose now, vanc trough was 14.6
[2021-06-12 21:37] VITALS: BP 109/53; PULSE 98; RESP 16; TEMP 36.7; O2SAT 89
[2021-06-13] VITALS (17 sets, daily range): BP systolic 118–162; BP diastolic 51–85; PULSE 80–95; RESP 13–18; TEMP 36.3–37.1; O2SAT 92–97; BMI 40.3
[2021-06-13 07:26] LABS: Basophils # 0.1 K/mm3 (0-0.2); Basophils % 0.8 % (0.1-2.0); Eosinophils # 0.2 K/mm3 (0.0-0.4); Eosinophils % 1.4 % (0.1-12.0); Hematocrit 31.9 % (37.0-47.0); Hemoglobin 10.2 g/dL (12.2-16.2); Lymphocytes # 2.3 K/mm3 (0.7-4.5); Lymphocytes % 19.5 % (10-50); Mean Corpuscular HGB Conc 32.1 g/dL (31.8-35.4); Mean Corpuscular Hemoglobin 30.7 pg (27.0-31.2); Mean Corpuscular Volume 95.8 fl (81-99); Mean Platelet Volume 10.3 fl (7.4-10.4); Monocytes # 0.4 K/mm3 (0.1-1.0); Monocytes % 3.6 % (1.7-9.3); Neutrophils # 8.9 K/mm3 (1.8-7.8); Neutrophils % 74.6 % (37.0-80.0); Platelet Count 244 K/mm3 (142-424); Red Blood Count 3.33 M/mm3 (4.20-5.40); Red Cell Distribution Width 15.1 % (11.5-17.5); White Blood Count 11.9 K/mm3 (4.8-10.8)
[2021-06-13 07:40] LABS: Anion Gap 7.1 mEq/L (5-15); Blood Urea Nitrogen 5 mg/dl (7-17); Carbon Dioxide 30 mmol/L (22.0-30.0); Chloride 107 mmol/L (98-107); Creatinine Clearance Estimated 150 mL/min (50-200); Estimated Glomerular Filt Rate 129 ml/min (>60); GFR (African American) 156 ML/MIN (>60); Glucose 107 mg/dl (74-100); Potassium 3.1 mmoL/L (3.5-5.1); Sodium 141 mmol/L (136-145)
[2021-06-13 07:44] LABS: C-Reactive Protein 192.1 mg/L (0-4)
[2021-06-13 08:08] LABS: Erythrocyte Sedimentation Rate > 140 mm/hr (0-30)
--- NOTE | 2021-06-13 09:11 | HMH.ORTHPN ---
Subjective Date: 06/13/21 <Viviane Arguello 06/13/21 09:20> Time: 08:00 <Viviane Arguello 06/13/21 09:20> Principal diagnosis: right lower extremity edema <Viviane Arguello 06/13/21 09:20> Interval history: Patient lying in bed. Alert and oriented x 3. No acute distress noted. Right lower leg, right ankle, and right foot cellulitis and edema remain unchanged. Patient assisted to bedside commode. While getting back in bed right ankle blisters opened up. There was clear and yellow drainage. Wound culture obtained. Discussed labs and x-ray results with patient. B/l feet callus debrided. Patient to remain NPO for surgical intervention I and D this afternoon. <Viviane Arguello 06/13/21 11:55> PN: Obj Ex Vital signs: Temp Pulse Resp BP Pulse Ox 97.4 F L 89 18 119/84 92 L 06/13/21 14:27 06/13/21 14:27 06/13/21 14:33 06/13/21 14:27 06/13/21 08:00 <Jordyn Eubanks 06/13/21 14:55> Temp Pulse Resp BP Pulse Ox 98.2 F 90 16 121/70 92 L 06/13/21 04:42 06/13/21 04:42 06/13/21 04:42 06/13/21 04:42 06/13/21 04:42 <Viviane Arguello 06/13/21 09:20> - Constitutional no acute distress <Viviane Arguello 06/13/21 11:55> - Routine HEENT Exam Head: Present: normocephalic <Viviane Arguello 06/13/21 11:55> Eye: Present: EOMI <Viviane Arguello 06/13/21 11:55> ENT: Present: mucous membranes moist <Viviane Arguello 06/13/21 11:55> - Routine Neck Exam Present: supple <Viviane Arguello 06/13/21 11:55> - Routine Respiratory Exam Absent: respiratory distress <Viviane Arguello 06/13/21 11:55> - Routine Cardiovascular Exam Present: RRR [facility]/13/21 11:55> - Routine Abdominal Exam Present: soft [facility] 06/13/21 11:55> - Routine Extremities Exam Present: edema, normal capillary refill, tenderness. Absent: pulses intact (diminished) <[facility] 06/13/21 11:55> - Detailed Lower Extremity Exam Lower leg: Right swelling, Right tenderness, Right erythema, Right warmth <[facility] 06/13/21 11:55> Ankle: Right erythema, Right swelling, Right tenderness, Right wound, Right decreased ROM, Right pain with active ROM <[facility] 06/13/21 11:55> Foot/Toes: Right erythema, Right swelling, Right tenderness, Right wound <[facility] 06/13/21 11:55> Leg image: 1 - Patient has 3+edema and cellulitis noted to right lower leg, right ankle and right foot. B/l calluses noted to right sub hallux, and left plantar midfoot. Acquired hallux valgus both feet, and acquired pes planus of both feet. Callus debridement: Left plantar midfoot no underlying ulcer, right sub hallux callus with underlying ulcer, measurement: 0.2 x 2.0 x 0.1 cm. Wound base 100 % granular. Right lateral ankle open blisters, wound limited to skin breakdown, measures 0.5 x 1.0 x 0.0 cm. <[facility] 06/13/21 11:55> - Routine Skin Exam Present: erythema, wounds (right sub hallux and right lateral ankle) <[facility] 06/13/21 11:55> - Routine Neurological Exam Present: oriented X3 <[facility] 06/13/21 11:55> Progress Note: A&P (1) Cellulitis of right leg Status: Acute (2) Hypocalcemia Status: Acute (3) Hypokalemia Status: Acute (4) Severe obesity (BMI 35.0-39.9) with comorbidity Status: Acute (5) Decreased pedal pulses Status: Acute (6) Diabetic foot Status: Acute (7) Callus of foot Status: Acute (8) Type 2 diabetes mellitus with diabetic nephropathy, without long-term current use of insulin Status: Acute (9) Calcaneal spur, right Status: Acute (10) Acquired pes planus of both feet Status: Acute (11) Acquired hallux valgus of both feet Status: Acute (12) Primary osteoarthritis of both feet Status: Acute <Jordyn Eubanks - 06/13/21 14:55> (1) Cellulitis of right leg Start date: 06/13/21 Start time: 08:00 Statu
--- NOTE | 2021-06-13 09:32 | HMH.ACPN2 ---
Internal Medicine - PN: Subj *Date: 06/13/21 *Time: 08:35 Interval history: pt laying in bed podiatry at bedside- plans for i&d today Exam Vital signs and Labs for Last 24 Hours: Temp Pulse Resp BP Pulse Ox 98.2 F 90 16 121/70 92 L 06/13/21 04:42 06/13/21 04:42 06/13/21 04:42 06/13/21 04:42 06/13/21 04:42 Laboratory Results - last 24 hr 06/12/21 16:05: Vancomycin Trough 14.6 H 06/13/21 06:40: ESR > 140 H 06/13/21 06:40: C-Reactive Protein 192.1 H 06/13/21 06:40: WBC 11.9 H, RBC 3.33 L, Hgb 10.2 L, Hct 31.9 L, MCV 95.8, MCH 30.7, MCHC 32.1, RDW 15.1, Plt Count 244, MPV 10.3, Neut % (Auto) 74.6, Lymph % (Auto) 19.5, Edwards % (Auto) 3.6, Eos % (Auto) 1.4, Baso % (Auto) 0.8, Neut # (Auto) 8.9 H, Lymph # (Auto) 2.3, Edwards # (Auto) 0.4, Eos # (Auto) 0.2, Baso # (Auto) 0.1 06/13/21 06:40: Sodium 141, Potassium 3.1 L, Chloride 107, Carbon Dioxide 30, Anion Gap 7.1, BUN 5 L, Creatinine 0.50 L, Estimated Creat Clear 150, Estimated GFR 129, Est GFR ( Amer) 156, Glucose 107 H, Calcium 8.0 L I & O for Last 24 hours: Intake & Output 06/10/21 06/11/21 06/12/21 06/13/21 11:59 11:59 11:59 11:59 Intake Total 480 / 480 1422 / 1422 2800 / 2800 951 / 951 Output Total 400 / 400 750 / 750 501 / 501 Balance 480 / 480 1022 / 1022 2050 / 2050 450 / 450 Weight 293 lb 3.437 oz 293 lb 14.4 oz 297 lb 14.4 oz 304 lb 1 oz Microbiology Reports for the Last 24 Hours: Microbiology 06/09/21 12:20 Blood Blood Culture - Preliminary Gram Negative Rods - Constitutional no acute distress, obese - *Routine HEENT Exam Head: Present: normocephalic Eye: Present: PERRL ENT: Present: mucous membranes moist - *Routine Neck Exam Present: supple. Absent: lymphadenopathy - *Routine Respiratory Exam Present: CTA bilaterally - *Routine Cardiovascular Exam Present: RRR - *Routine Abdominal Exam Present: soft, normoactive bowel sounds. Absent: tenderness - *Routine Extremities Exam Present: edema, tenderness Comments: rt leg swollen redness up thigh and almost to groin - *Routine Skin Exam Present: erythema, warm. Absent: rash Comments: redness extending up rt leg no improvement dark area to ankle - *Routine Neurological Exam Present: alert, oriented X3 Assessment and Plan (1) Cellulitis of right leg Status: Acute Category: Medical Code(s): L03.115 - Cellulitis of right lower limb (2) Hypocalcemia Status: Acute Category: Medical Code(s): E83.51 - Hypocalcemia (3) Hypokalemia Status: Acute Category: Medical Code(s): E87.6 - Hypokalemia (4) Severe obesity (BMI 35.0-39.9) with comorbidity Status: Acute Category: Medical Code(s): E66.01 - Morbid (severe) obesity due to excess calories (5) Decreased pedal pulses Start date: 06/12/21 Start time: 12:00 Status: Acute Category: Medical Code(s): R09.89 - Other specified symptoms and signs involving the circulatory and respiratory systems (6) Diabetic foot Start date: 06/12/21 Start time: 12:00 Status: Acute Category: Medical Code(s): E11.8 - Type 2 diabetes mellitus with unspecified complications (7) Callus of foot Start date: 06/12/21 Start time: 12:00 Status: Acute Category: Medical Code(s): L84 - Corns and callosities (8) Type 2 diabetes mellitus with diabetic nephropathy, without long-term current use of insulin Start date: 06/12/21 Start time: 12:00 Status: Acute Category: Medical Code(s): E11.21 - Type 2 diabetes mellitus with diabetic nephropathy (9) Calcaneal spur, right Start date: 06/12/21 Start time: 12:00 Status: Acute Category: Medical Code(s): M77.31 - Calcaneal spur, right foot (10) Acquired pes planus of both feet Start date: 06/12/21 Start time: 12:00 Status: Acute Category: Medical Code(s): M21.41 - Flat foot [pes planus] (acquired), right foot; M21.42 - Flat foot [pes planus] (acquired), left foot (
--- NOTE | 2021-06-13 09:52 | HMH.PHACONS ---
- Pharmacy Consult Date: 06/13/21 Time: 09:52 Referring provider: DR. SERRANO Reason for Consult:: VANCOMYCIN TROUGH LEVEL Allergies and ADEs:: Allergies Allergy/AdvReac Type Severity Reaction Status Date / Time nut - unspecified Allergy Severe Swelling Verified 06/11/21 06:08 of Lip/Tongue/Throat codeine Allergy Unknown Unknown Verified 06/12/21 11:38 allergy reaction Penicillins Allergy Unknown Unknown Verified 06/12/21 11:38 allergy reaction Home Medications:: Home Medications Medication Instructions Recorded Confirmed Type hydroxyzine pamoate 50 mg capsule 50 mg PO TIDP PRN cap 03/25/21 06/10/21 History paroxetine HCl 30 mg tablet 30 mg PO DAILY tab 03/25/21 06/09/21 History quetiapine 400 mg tablet,extended 400 mg PO BID tab 03/25/21 06/09/21 History release 24 hr Gabapentin 300 mg PO TID 06/09/21 06/09/21 History Acetaminophen [Acetaminophen 325mg 650 mg PO Q8HP PRN 06/10/21 06/10/21 History tab] Ibuprofen [Ibuprofen 600mg 600 mg PO Q6HP PRN 06/10/21 06/10/21 History Tablet] Loperamide HCl [Anti-Diarrheal] 2 mg PO Q6HP PRN 06/10/21 06/10/21 History Metformin HCl 500 mg PO HS 06/10/21 06/10/21 History ondansetron HCL [Ondansetron 4mg 4 mg PO QIDP PRN 06/10/21 06/10/21 History tab*] Height: 1.85 m Weight: 137.92 kg Laboratory Results:: Laboratory Results - last 24 hr 06/12/21 16:05: Vancomycin Trough 14.6 H 06/13/21 06:40: ESR > 140 H 06/13/21 06:40: C-Reactive Protein 192.1 H 06/13/21 06:40: WBC 11.9 H, RBC 3.33 L, Hgb 10.2 L, Hct 31.9 L, MCV 95.8, MCH 30.7, MCHC 32.1, RDW 15.1, Plt Count 244, MPV 10.3, Neut % (Auto) 74.6, Lymph % (Auto) 19.5, [place] % (Auto) 3.6, Eos % (Auto) 1.4, Baso % (Auto) 0.8, Neut # (Auto) 8.9 H, Lymph # (Auto) 2.3, [place] # (Auto) 0.4, Eos # (Auto) 0.2, Baso # (Auto) 0.1 06/13/21 06:40: Sodium 141, Potassium 3.1 L, Chloride 107, Carbon Dioxide 30, Anion Gap 7.1, BUN 5 L, Creatinine 0.50 L, Estimated Creat Clear 150, Estimated GFR 129, Est GFR ( Amer) 156, Glucose 107 H, Calcium 8.0 L Medical History: Reports:: Anxiety, Depression, Gastroesophageal Reflux Disease(GERD), Migraine Denies:: Cancer, Diabetes Mellitus Type 1, Diabetes Mellitus Type 2, MRSA Assessment and Plan (1) Cellulitis of right leg Status: Acute Category: Medical Code(s): L03.115 - Cellulitis of right lower limb (2) Hypocalcemia Status: Acute Category: Medical Code(s): E83.51 - Hypocalcemia (3) Hypokalemia Status: Acute Category: Medical Code(s): E87.6 - Hypokalemia (4) Severe obesity (BMI 35.0-39.9) with comorbidity Status: Acute Category: Medical Code(s): E66.01 - Morbid (severe) obesity due to excess calories (5) Decreased pedal pulses Start date: 06/12/21 Start time: 12:00 Status: Acute Category: Medical Code(s): R09.89 - Other specified symptoms and signs involving the circulatory and respiratory systems (6) Diabetic foot Start date: 06/12/21 Start time: 12:00 Status: Acute Category: Medical Code(s): E11.8 - Type 2 diabetes mellitus with unspecified complications (7) Callus of foot Start date: 06/12/21 Start time: 12:00 Status: Acute Category: Medical Code(s): L84 - Corns and callosities (8) Type 2 diabetes mellitus with diabetic nephropathy, without long-term current use of insulin Start date: 06/12/21 Start time: 12:00 Status: Acute Category: Medical Code(s): E11.21 - Type 2 diabetes mellitus with diabetic nephropathy (9) Calcaneal spur, right Start date: 06/12/21 Start time: 12:00 Status: Acute Category: Medical Code(s): M77.31 - Calcaneal spur, right foot (10) Acquired pes planus of both feet Start date: 06/12/21 Start time: 12:00 Status: Acute Category: Medical Code(s): M21.41 - Flat foot [pes planus] (acquired), right foot; M21.42 - Flat foot [pes planus] (acquired), left foot (11) Acquired hallux valgus of both feet Start date:
--- NOTE | 2021-06-13 12:22 | HMH.ANESCL ---
[facility] Anesthesia Checklist - Patient Identification Patient Identification: Arm Band - Structural Data Admitted From: Home Planned Operative Procedure/s: I & D ankle Consent for Planned Operative Procedure(s) Verified: Yes - NPO Status Verified Time NPO: 00:00 - Airway Assessment C-Spine Mobility Assessed: Yes TMJ Mobility Assessed: Yes Dentition: Edentulous - Neurological Assessment Level of Consciousness: Awake Hx Seizures: No Numbness or tingling in extremities: No - Anesthesia Plan Anesthesia Risk discussed: Yes Anesthesia Plan: Verified ASA Class: III Anesthesia Type: MAC [facility] History I have reviewed the patient's past medical history: Yes Medical History: Reports:: Anxiety, Depression, Diabetes Mellitus Type 2, Gastroesophageal Reflux Disease(GERD), Migraine Denies:: Cancer, Diabetes Mellitus Type 1, MRSA *Have you ever received a pneumonia vaccine?: Yes *Have you received a flu vaccine this season?: Yes Other Medical History: Reports: Arthritis Anesthesia experience/problems:: None Other Surgeries: Yes: Cholecystectomy, , Hysterectomy-Total Amputation: No Fractures: No - *Social History Last grade of school completed: Some college Smoking Status: Current every day smoker Tobacco Type: cigarettes # Packs/Day (cigarettes): 1 Alcohol Intake: never Substance Use Type: former substance user *Occupational Status:: disabled *Travel in the last 8 weeks: None - Psychiatric History Pschychiatric History:: Reports:: Anxiety, Depression Family Hx:: No significant family history
--- NOTE | 2021-06-13 14:25 | HMH.OPNOTE ---
Date of procedure: 06/13/21 Pre-op Diagnosis:: 1. Right ankle abscess 2. Right LE edema 3. Right LE cellulitis 4. DM ulcer, right hallux 5. Morbid obesity Post-op Diagnosis:: Same Procedure performed:: 1. Right ankle incision and drainage 2. Right hallux wound debridement 3. Application of PARMINDER drain Surgeon:: Jordyn Eubanks DPM SUSTAINABLE COMMUNITIES DESIGNER:: Nirav Chang Anesthesia: MAC Estimated blood loss (mL): 30 Clinical Note:: Patient is a 51-year-old diabetic female who was admitted 06/09/2021 for right lower extremity cellulitis. She has 3+edema and cellulitis noted to right lower leg, right ankle and right foot. Right sub hallux callus with underlying ulcer, measurement: 2.0 x 0.2 x 0.1 cm. Wound base 100 % granular. Right lateral ankle open blisters, wound limited to skin breakdown, measures 0.5 x 1.0 x 0.0 cm. New images were discussed with the patient. We discussed conservative versus surgical treatment options. We discussed conservative care including continued oral vs IV antibiotics and local wound care versus surgical incision and drainage. Patient understands that they could have wound healing complications including delayed healing and infection. We discussed that if the wound does not heal, it is possible that they may need further debridement. Patient understands if infection spreads into the bone, it may warrant proximal amputation and could result in further loss of digits, loss of partial foot or loss of leg. We discussed the risks and benefits in great detail. Other surgical risks include: prolonged pain and swelling, further infection requiring oral or IV antibiotics, delay in healing of soft tissue or bone, nerve or blood vessel damage, CRPS/RSD, DVT, anesthesia complications, and even . All questions answered. Patient verbalized understanding. Consent obtained. Operative findings:: Right hallux plantar diabetic foot ulcer. Post debridement sharply excisionally with a 15 blade and forceps through skin only wound was 100% granular. Measured 2.1 x 0.2 x 0.1 cm. Skin edges able to be reapproximated and sutured closed. Incision approximately 4 x 0.2 x 0.5 cm made over the right lateral ankle. Post I&D, purulent drainage expressed from the right lateral ankle wound or the blister site. There was tracking approximately 3 cm proximal and 2 cm distal. Another incision was made 0.5x0.1x0.3cm, over the right anterior lateral and anterior medial ankle gutters. No purulence expressed. A 4th incision was made over the medial foot/ankle approximately 0.5 x 0.1 x 0.3 cm. No tracking purulence or malodor noted from medial side. Operative note:: On this date and time the patient was deemed an appropriate surgical candidate. With informed consent time patient was transferred from the preoperative holding area to the operating theater placed on table in a normal supine position. MAC anesthesia utilized. Right lower extremity was prepped and draped in normal sterile fashion. No tourniquet utilized. IV Clinda 900mg and Vanco scheduled on floor. Right foot incision and drainage: Attention was directed to the right lateral ankle where edema and erythema was noted along with blistering skin type abscess wound, measuring ~[id number] fluctuant area noted. See operative findings for details and measurements. Utilizing a 15 blade, a linear incision was made over the fluctuate wound site full thickness through skin, subcutaneous tissue into the deep fascia. There was some creamy yellow drainage noted in the wound site, wound culture taken. No exposed bone noted. Cead-tr-saii pressure was applied to the incision and immediately 1 more cc of purulent drainage was expressed. Deep abscess wound culture taken. Incision was deepened through the fascia into the ankle joint, total depth 2 cm. There was some purulence expressed from the lateral ankle. 3 more incisions were made around the right anterior and lateral ankle gutter, right anterior medial ankle gutter and right medial foot
--- NOTE | 2021-06-13 14:26 | HMH.ANESI ---
[facility] Anesthesia Record Part I Intake, IV Amount: 600 Estimated blood loss (mL): 5 Urine output (mL): 0 Blood Pressure: 119/84 SaO2: 94 Pulse Rate: 89 Respiratory Rate: 18 Temperature: 97.4 F Patient is:: Awake Stable to PACU at:: 14:23
--- NOTE | 2021-06-13 14:52 | HMH.ACPN2 ---
Internal Medicine - PN: Subj *Date: 06/13/21 *Time: 14:52 Exam Vital signs and Labs for Last 24 Hours: Temp Pulse Resp BP Pulse Ox 97.4 F L 89 18 119/84 92 L 06/13/21 14:27 06/13/21 14:27 06/13/21 14:33 06/13/21 14:27 06/13/21 08:00 Laboratory Results - last 24 hr 06/12/21 16:05: Vancomycin Trough 14.6 H 06/13/21 06:40: ESR > 140 H 06/13/21 06:40: C-Reactive Protein 192.1 H 06/13/21 06:40: WBC 11.9 H, RBC 3.33 L, Hgb 10.2 L, Hct 31.9 L, MCV 95.8, MCH 30.7, MCHC 32.1, RDW 15.1, Plt Count 244, MPV 10.3, Neut % (Auto) 74.6, Lymph % (Auto) 19.5, [place] % (Auto) 3.6, Eos % (Auto) 1.4, Baso % (Auto) 0.8, Neut # (Auto) 8.9 H, Lymph # (Auto) 2.3, [place] # (Auto) 0.4, Eos # (Auto) 0.2, Baso # (Auto) 0.1 06/13/21 06:40: Sodium 141, Potassium 3.1 L, Chloride 107, Carbon Dioxide 30, Anion Gap 7.1, BUN 5 L, Creatinine 0.50 L, Estimated Creat Clear 150, Estimated GFR 129, Est GFR ( Amer) 156, Glucose 107 H, Calcium 8.0 L I & O for Last 24 hours: Intake & Output 06/10/21 06/11/21 06/12/21 06/13/21 23:59 23:59 23:59 23:59 Intake Total 1000 / 1000 1502 / 1502 3151 / 3151 600 / 600 Output Total 400 / 450 1250 / 1251 Balance 1000 / 1000 1102 / 1052 1901 / 1900 599 / 599 Weight 133 kg 133.311 kg 135.125 kg 137.92 kg Microbiology Reports for the Last 24 Hours: Microbiology 06/09/21 12:20 Blood Blood Culture - Preliminary Gram Negative Rods Assessment and Plan (1) Cellulitis of right leg Start date: 06/13/21 Start time: 08:00 Status: Acute Category: Medical Code(s): L03.115 - Cellulitis of right lower limb (2) Hypocalcemia Status: Acute Category: Medical Code(s): E83.51 - Hypocalcemia (3) Hypokalemia Status: Acute Category: Medical Code(s): E87.6 - Hypokalemia (4) Severe obesity (BMI 35.0-39.9) with comorbidity Status: Acute Category: Medical Code(s): E66.01 - Morbid (severe) obesity due to excess calories (5) Decreased pedal pulses Start date: 06/13/21 Start time: 08:00 Status: Acute Category: Medical Code(s): R09.89 - Other specified symptoms and signs involving the circulatory and respiratory systems (6) Diabetic foot Start date: 06/13/21 Start time: 08:00 Status: Acute Category: Medical Code(s): E11.8 - Type 2 diabetes mellitus with unspecified complications (7) Callus of foot Start date: 06/13/21 Start time: 08:00 Status: Acute Category: Medical Code(s): L84 - Corns and callosities (8) Type 2 diabetes mellitus with diabetic nephropathy, without long-term current use of insulin Start date: 06/13/21 Start time: 08:00 Status: Acute Category: Medical Code(s): E11.21 - Type 2 diabetes mellitus with diabetic nephropathy (9) Calcaneal spur, right Start date: 06/13/21 Start time: 08:00 Status: Acute Category: Medical Code(s): M77.31 - Calcaneal spur, right foot (10) Acquired pes planus of both feet Start date: 06/13/21 Start time: 08:00 Status: Acute Category: Medical Code(s): M21.41 - Flat foot [pes planus] (acquired), right foot; M21.42 - Flat foot [pes planus] (acquired), left foot (11) Acquired hallux valgus of both feet Start date: 06/13/21 Start time: 08:00 Status: Acute Category: Medical Code(s): M20.11 - Hallux valgus (acquired), right foot; M20.12 - Hallux valgus (acquired), left foot (12) Primary osteoarthritis of both feet Start date: 06/13/21 Start time: 08:00 Status: Acute Category: Medical Code(s): M19.071 - Primary osteoarthritis, right ankle and foot; M19.072 - Primary osteoarthritis, left ankle and foot The patient's infection will respond to the chosen ABx?: Yes (ANKLE WOUND CULTURE PENDING) Is the patient receiving the right drug, dose, and route?: Yes Could a more targeted ABx be ordered?: No
--- NOTE | 2021-06-13 15:18 | SW/DCPLANNER ---
Addendum entered by Gege Mancilla RN 06/18/21 15:37: Patient going to [facility] today. Loren states no COVID swab required. Contacted [facility] for transport. MICHELEL Dela Cruz Addendum entered by [facility] 06/17/21 14:29: Loren jenkins/ Sera Khan has stated that she can accept this patient under Medicaid once ready for discharge. Addendum entered by [facility] 06/17/21 11:53: I have faxed updated information to Loren Khan. Addendum entered by [facility] 06/17/21 09:44: I have updated Loren jenkins/ Sera Khan and Travon jenkins/ Jhon Moy that this patient will require SNF level of care at time of discharge: IV antibiotics, wound care and PARMINDER drain. Addendum entered by [facility] 06/14/21 12:31: Travon jenkins/ Jhon Moy and Loren jenkins/ Sera Khan did have a discussion regarding this patient: they would prefer to know IV antibiotics needed prior to discharge then determine if patient is a candidate to return to [facility] and do outpatient infusions or SNF level of care at [facility]. Addendum entered by [facility] 06/14/21 09:30: Marlys jenkins/ Sera Khan has evaluated this patient: currently waiting to hear back. Original Note: This patient will require IV antibiotics, PARMINDER management and wound care at time of discharge. Patient will require SNF level of care at time of discharge. Patient information has been faxed to [facility] and Sera Khan. I will follow up with MD walt and Jhon Moy: discharge date is unknown at this time.
[2021-06-14] VITALS: BP 148/76; PULSE 93; RESP 17; TEMP 36.6; O2SAT 92
[2021-06-14 04:00] VITALS: BP 180/88; PULSE 98; RESP 18; TEMP 36.9; O2SAT 92
[2021-06-14 05:56] VITALS: BMI 39.9
[2021-06-14 07:54] LABS: Blood Urea Nitrogen 6 mg/dl (7-17); Calcium 8.1 mg/dl (8.4-10.2); Carbon Dioxide 31 mmol/L (22.0-30.0); Chloride 105 mmol/L (98-107); Creatinine Clearance Estimated 280 mL/min (50-200); Estimated Glomerular Filt Rate 129 ml/min (>60); GFR (African American) 156 ML/MIN (>60); Glucose 114 mg/dl (74-100); Sodium 140 mmol/L (136-145)
[2021-06-14 07:59] LABS: C-Reactive Protein 143.4 mg/L (0-4)
[2021-06-14 08:00] VITALS: BP 116/49; PULSE 95; RESP 18; TEMP 37.1; O2SAT 94
[2021-06-14 08:04] LABS: Basophils # 0.1 K/mm3 (0-0.2); Basophils % 0.7 % (0.1-2.0); Eosinophils # 0.1 K/mm3 (0.0-0.4); Eosinophils % 1.2 % (0.1-12.0); Hematocrit 33.5 % (37.0-47.0); Hemoglobin 10.4 g/dL (12.2-16.2); Lymphocytes # 2.5 K/mm3 (0.7-4.5); Lymphocytes % 21.4 % (10-50); Mean Corpuscular HGB Conc 31.1 g/dL (31.8-35.4); Mean Corpuscular Hemoglobin 30.2 pg (27.0-31.2); Mean Corpuscular Volume 97.3 fl (81-99); Mean Platelet Volume 10.3 fl (7.4-10.4); Monocytes # 0.5 K/mm3 (0.1-1.0); Monocytes % 3.8 % (1.7-9.3); Neutrophils # 8.6 K/mm3 (1.8-7.8); Neutrophils % 72.9 % (37.0-80.0); Platelet Count 309 K/mm3 (142-424); Red Blood Count 3.45 M/mm3 (4.20-5.40); Red Cell Distribution Width 15.3 % (11.5-17.5); White Blood Count 11.8 K/mm3 (4.8-10.8)
[2021-06-14 08:36] LABS: Erythrocyte Sedimentation Rate 115 mm/hr (0-30)
--- NOTE | 2021-06-14 09:05 | HMH.PTEV ---
Physical Therapy Evaluation Rehab PT IP Evaluation Start: 06/13/21 14:22 Freq: ONCE Status: Active Protocol: Document 06/14/21 08:59 PHORGRACIELA (Rec: 06/14/21 09:05 PHORNE [id number]) Subjective/History History History 51 yowf adm to [facility] with R LE cellulitis now S/P R ankle I&D due to abcess with hemovac drain in place.She reports she lives at [facility] and is generally independent with all mobility. Subjective Subjective Pt with no c/o this am. My leg feels better than it did. Rehab PT IP Eval Objective Appearance Patient Behavior Appropriate Patient Orientation Person,Place,Time Difficulty following instructions none Speech Pattern Clear Ambulation Patient Able to Ambulate Yes Ambulation Observation IP General Gait Pattern Observation Shuffling Step,Decrease Weight Bear (R) Ambulation Distance (feet) 3 Ambulation Assistive Device Rolling Walker Ambulation Ability Contact Guard/Hand Hold Balance Ability to Arise Able, uses arms to help Sitting Balance Steady, safe Standing Balance Steady, wide stance Dynamic Sitting Balance Ability Good Dynamic Standing Balance Ability Fair Transfers Bed Transfer Ability Contact Guard/Hand Hold Chair Transfer Ability Contact Guard/Hand Hold Sit to Stand Bed Transfer Ability Contact Guard/Hand Hold Sit to Stand Chair Transfer Ability Contact Guard/Hand Hold Rehab PT IP prob,goals,plan Problems Date of Evaluation: 06/14/21 PT IP Problems Bed Mobility,Transfers,Gait Rehab Potential Rehab Potential Good Equipment Needs Assistive Devices Rolling / Wheeled Walker Plan PT Intervention Plan Bed Mobility,Transfers,Gait, Therapeutic Exercise PT Plan Frequency BID Duration LOS Discharge Goals Bed Transfer Ability Supervision/Stand by Sit to Stand Chair Transfer Ability Supervision/Stand by Ambulation Assistive Device Rolling Walker Ambulation Distance (feet) 20 Discharge Plan PT Discharge Plan Pt is currently most appropriate for short term rehab placement, but should be able to return to personal senior living if ambulation is improved over the next 1-2 days. She currently needs a
--- NOTE | 2021-06-14 09:06 | HMH.ORTHPN ---
Subjective Date: 06/14/21 Time: 08:40 Principal diagnosis: right lower extremity edema Interval history: Patient is resting comfortably in bed. She reports pain has improved since surgery. Still some discomfort when she has the right lateral ankle downward on the bed. Denies N/V, F/C, SOB/CP. PN: Obj Ex Vital signs: Temp Pulse Resp BP Pulse Ox 98.8 F 95 H 18 116/49 L 94 L 06/14/21 08:00 06/14/21 08:00 06/14/21 08:00 06/14/21 08:00 06/14/21 08:00 - Constitutional no acute distress - Routine HEENT Exam Head: Present: normocephalic - Routine Respiratory Exam Absent: respiratory distress - Routine Cardiovascular Exam Present: RRR - Routine Abdominal Exam Present: obese - Routine Extremities Exam Present: edema - Detailed Lower Extremity Exam Ankle image: 1 - Right lateral ankle bruising over previous blister site. Decreased pain with palpation. PARMINDER drain itnact. The right hallux has sutures c/d/i. Right anterior medial, anterior lateral and medial ankle have sutures c/d/i. The edema, erythema around the ankle has improved. There is still RLE erythema noted, most noticable around the knee. Progress Note: A&P (1) Cellulitis of right leg Status: Acute (2) Hypocalcemia Status: Acute (3) Hypokalemia Status: Acute (4) Severe obesity (BMI 35.0-39.9) with comorbidity Status: Acute (5) Decreased pedal pulses Status: Acute (6) Diabetic foot Status: Acute (7) Callus of foot Status: Acute (8) Type 2 diabetes mellitus with diabetic nephropathy, without long-term current use of insulin Status: Acute (9) Calcaneal spur, right Status: Acute (10) Acquired pes planus of both feet Status: Acute (11) Acquired hallux valgus of both feet Status: Acute (12) Primary osteoarthritis of both feet Status: Acute (13) Cutaneous abscess of right ankle Status: Acute Assessment and Plan for All Diagnoses:: Surgery, 06/13/21: s/p Right ankle incision and drainage, Right hallux wound debridement, Application of PARMINDER drain Intra-op specimens: Right ankle wound culture: pending Microbiology 06/13/21 13:45 Ankle,Right Gram Stain - Final 06/09/21 12:20 Blood Blood Culture - Preliminary Gram Negative Rods Laboratory Tests 06/12/21 06/13/21 06/13/21 16:05 06:40 06:40 WBC ESR > 140 H Potassium Creatinine Glucose C-Reactive Protein 192.1 H Vancomycin Trough 14.6 H 06/14/21 06/14/21 06/14/21 05:45 05:45 05:45 WBC 11.8 H ESR 115 H Potassium 3.0 L Creatinine 0.50 L Glucose 114 H C-Reactive Protein 143.4 H Vancomycin Trough 06/14/21: POD #1 -RLE dsg removed, wounds flushed with saline and explored at bedside, no purulence expressed -iodophor packing inserted, betadine soaked DSD applied -PARMINDER drain 3cc sanginous fluid -No immediate plans for podiatry surgery, will re-evaluate next week -Recommend help upon discharge: daily dressing changes, PARMINDER drain mgmt, abx SNF Orders: -Maintain dressing clean dry and intact to right ankle, reinforce as necessary. -Daily dressing changes: flush wounds with saline, dry. Apply 1/4 iodophor packing, betadine soaked gauze, DSD (kerlix, lizabeth). -PARMINDER drain management. -PWB in post op shoe, crutches/walker. -Antibiotics: Clindamycin, IV Vanco - pending cultures. -Has Podiatry f/u 06/18/21 @[id number].
--- NOTE | 2021-06-14 09:14 | HMH.ACPN2 ---
Internal Medicine - PN: Subj *Date: 06/14/21 *Time: 08:10 Interval history: pt laying in bed asking to go home, Exam Vital signs and Labs for Last 24 Hours: Temp Pulse Resp BP Pulse Ox 98.8 F 95 H 18 116/49 L 94 L 06/14/21 08:00 06/14/21 08:00 06/14/21 08:00 06/14/21 08:00 06/14/21 08:00 Laboratory Results - last 24 hr 06/14/21 05:45: WBC 11.8 H, RBC 3.45 L, Hgb 10.4 L, Hct 33.5 L, MCV 97.3, MCH 30.2, MCHC 31.1 L, RDW 15.3, Plt Count 309 D, MPV 10.3, Neut % (Auto) 72.9, Lymph % (Auto) 21.4, [place] % (Auto) 3.8, Eos % (Auto) 1.2, Baso % (Auto) 0.7, Neut # (Auto) 8.6 H, Lymph # (Auto) 2.5, [place] # (Auto) 0.5, Eos # (Auto) 0.1, Baso # (Auto) 0.1 06/14/21 05:45: Sodium 140, Potassium 3.0 L, Chloride 105, Carbon Dioxide 31 H, Anion Gap 7.0, BUN 6 L, Creatinine 0.50 L, Estimated Creat Clear 280, Estimated GFR 129, Est GFR ( Amer) 156, Glucose 114 H, Calcium 8.1 L, C-Reactive Protein 143.4 H 06/14/21 05:45: ESR 115 H I & O for Last 24 hours: Intake & Output 06/11/21 06/12/21 06/13/21 06/14/21 11:59 11:59 11:59 11:59 Intake Total 1422 / 1422 2800 / 2800 951 / 951 1260 / 1260 Output Total 400 / 400 750 / 750 501 / 501 Balance 1022 / 1022 2049 / 0 450 / 450 1230 / 1230 Weight 293 lb 14.4 oz 297 lb 14.4 oz 304 lb 1 oz 300 lb 14.4 oz Microbiology Reports for the Last 24 Hours: Microbiology 06/13/21 13:45 Ankle,Right Gram Stain - Final 06/09/21 12:20 Blood Blood Culture - Preliminary Gram Negative Rods - Constitutional no acute distress, obese - *Routine HEENT Exam Head: Present: normocephalic Eye: Present: PERRL ENT: Present: mucous membranes moist - *Routine Neck Exam Present: supple. Absent: lymphadenopathy - *Routine Respiratory Exam Present: CTA bilaterally - *Routine Cardiovascular Exam Present: RRR - *Routine Abdominal Exam Present: soft, normoactive bowel sounds. Absent: tenderness - *Routine Extremities Exam Absent: cyanosis, clubbing, edema Comments: redness little pass knee dressing and drain in place - *Routine Skin Exam Present: erythema, warm. Absent: rash Comments: dressing to rt foot drain in place redness improved only pass knee - *Routine Neurological Exam Present: alert, oriented X3 Assessment and Plan (1) Cellulitis of right leg Start date: 06/13/21 Start time: 08:00 Status: Acute Category: Medical Code(s): L03.115 - Cellulitis of right lower limb (2) Hypocalcemia Status: Acute Category: Medical Code(s): E83.51 - Hypocalcemia (3) Hypokalemia Status: Acute Category: Medical Code(s): E87.6 - Hypokalemia (4) Severe obesity (BMI 35.0-39.9) with comorbidity Status: Acute Category: Medical Code(s): E66.01 - Morbid (severe) obesity due to excess calories (5) Decreased pedal pulses Start date: 06/13/21 Start time: 08:00 Status: Acute Category: Medical Code(s): R09.89 - Other specified symptoms and signs involving the circulatory and respiratory systems (6) Diabetic foot Start date: 06/13/21 Start time: 08:00 Status: Acute Category: Medical Code(s): E11.8 - Type 2 diabetes mellitus with unspecified complications (7) Callus of foot Start date: 06/13/21 Start time: 08:00 Status: Acute Category: Medical Code(s): L84 - Corns and callosities (8) Type 2 diabetes mellitus with diabetic nephropathy, without long-term current use of insulin Start date: 06/13/21 Start time: 08:00 Status: Acute Category: Medical Code(s): E11.21 - Type 2 diabetes mellitus with diabetic nephropathy (9) Calcaneal spur, right Start date: 06/13/21 Start time: 08:00 Status: Acute Category: Medical Code(s): M77.31 - Calcaneal spur, right foot (10) Acquired pes planus of both feet Start date: 06/13/21 Start time: 08:00 Status: Acute Category: Medical Code(s): M21.41 - Flat foot [pes planus] (acquired), right foot; M21.42 - Flat
[2021-06-14 11:08] VITALS: BP 133/62; PULSE 85; RESP 17; TEMP 36.8; O2SAT 92
--- NOTE | 2021-06-14 15:13 | PC.NURSE ---
patient has done well this shift. dressing changed per podiatry today. rings out as needed. educated to be careful with ankle. will need a post op shoe to be partial weight bearing. has had a bm this shift. been up to chair. appetite has been good.
[2021-06-14 15:21] VITALS: BP 136/58; PULSE 91; RESP 16; TEMP 36.9; O2SAT 92
[2021-06-14 20:00] VITALS: BP 134/60; PULSE 87; RESP 17; TEMP 37; O2SAT 93
[2021-06-15] VITALS (7 sets, daily range): BP systolic 124–154; BP diastolic 66–83; PULSE 84–95; RESP 16–20; TEMP 36.4–36.8; O2SAT 90–96; BMI 40.2
[2021-06-15 08:32] LABS: Basophils # 0.1 K/mm3 (0-0.2); Basophils % 0.7 % (0.1-2.0); Eosinophils # 0.2 K/mm3 (0.0-0.4); Eosinophils % 1.3 % (0.1-12.0); Hematocrit 32.6 % (37.0-47.0); Hemoglobin 10.1 g/dL (12.2-16.2); Lymphocytes # 2.7 K/mm3 (0.7-4.5); Lymphocytes % 23.9 % (10-50); Mean Corpuscular Hemoglobin 30.3 pg (27.0-31.2); Mean Corpuscular Volume 97.8 fl (81-99); Mean Platelet Volume 10.3 fl (7.4-10.4); Monocytes # 0.5 K/mm3 (0.1-1.0); Monocytes % 4.1 % (1.7-9.3); Neutrophils % 70.1 % (37.0-80.0); Platelet Count 311 K/mm3 (142-424); Red Blood Count 3.34 M/mm3 (4.20-5.40); Red Cell Distribution Width 15.5 % (11.5-17.5); White Blood Count 11.4 K/mm3 (4.8-10.8)
[2021-06-15 08:44] LABS: Anion Gap 7.4 mEq/L (5-15); Blood Urea Nitrogen 5 mg/dl (7-17); Calcium 8.1 mg/dl (8.4-10.2); Carbon Dioxide 27 mmol/L (22.0-30.0); Chloride 108 mmol/L (98-107); Creatinine Clearance Estimated 150 mL/min (50-200); Estimated Glomerular Filt Rate 129 ml/min (>60); GFR (African American) 156 ML/MIN (>60); Glucose 111 mg/dl (74-100); Potassium 3.4 mmoL/L (3.5-5.1); Sodium 139 mmol/L (136-145)
--- NOTE | 2021-06-15 09:02 | HMH.ACPN2 ---
Internal Medicine - PN: Subj *Date: 06/15/21 *Time: 21:57 Interval history: doing better with less reddness - labs stable Exam Vital signs and Labs for Last 24 Hours: Temp Pulse Resp BP Pulse Ox 98.3 F 87 18 124/74 92 L 06/15/21 07:44 06/15/21 07:44 06/15/21 07:44 06/15/21 07:44 06/15/21 07:44 Laboratory Results - last 24 hr 06/15/21 07:27: WBC 11.4 H, RBC 3.34 L, Hgb 10.1 L, Hct 32.6 L, MCV 97.8, MCH 30.3, MCHC 31.0 L, RDW 15.5, Plt Count 311, MPV 10.3, Neut % (Auto) 70.1, Lymph % (Auto) 23.9, [place] % (Auto) 4.1, Eos % (Auto) 1.3, Baso % (Auto) 0.7, Neut # (Auto) 8.0 H, Lymph # (Auto) 2.7, [place] # (Auto) 0.5, Eos # (Auto) 0.2, Baso # (Auto) 0.1 06/15/21 07:27: Sodium 139, Potassium 3.4 L, Chloride 108 H, Carbon Dioxide 27, Anion Gap 7.4, BUN 5 L, Creatinine 0.50 L, Estimated Creat Clear 150, Estimated GFR 129, Est GFR ( Amer) 156, Glucose 111 H, Calcium 8.1 L I & O for Last 24 hours: Intake & Output 06/12/21 06/13/21 06/14/21 06/15/21 11:59 11:59 11:59 11:59 Intake Total 2800 / 2800 951 / 951 1260 / 1260 1080 / 1080 Output Total 750 / 750 501 / 501 770 / 770 Balance 2049 / 2049 450 / 450 1230 / 1230 310 / 310 Weight 297 lb 14.4 oz 304 lb 1 oz 300 lb 14.4 oz 303 lb 9 oz Microbiology Reports for the Last 24 Hours: Microbiology 06/13/21 13:45 Ankle,Right Gram Stain - Final 06/13/21 13:45 Ankle,Right Wound Culture - Preliminary 06/09/21 12:20 Blood Blood Culture - Preliminary Gram Negative Rods 06/09/21 12:20 Blood Blood Culture - Final NO GROWTH AFTER 5 DAYS - Constitutional no acute distress, obese - *Routine HEENT Exam Head: Present: normocephalic Eye: Present: EOMI, PERRL ENT: Present: mucous membranes dry - *Routine Neck Exam Absent: JVD - *Routine Respiratory Exam Present: CTA bilaterally - *Routine Cardiovascular Exam Present: RRR - *Routine Abdominal Exam Present: soft - *Routine Extremities Exam Comments: swollen lower leg with reddness - drain in place - *Routine Skin Exam Present: erythema - *Routine Neurological Exam Present: alert, CN II-XII intact - Routine Psychiatric Exam Present: normal affect Assessment and Plan (1) Cellulitis of right leg Start date: 06/13/21 Start time: 08:00 Status: Acute Category: Medical Code(s): L03.115 - Cellulitis of right lower limb (2) Hypocalcemia Status: Acute Category: Medical Code(s): E83.51 - Hypocalcemia (3) Hypokalemia Status: Acute Category: Medical Code(s): E87.6 - Hypokalemia (4) Severe obesity (BMI 35.0-39.9) with comorbidity Status: Acute Category: Medical Code(s): E66.01 - Morbid (severe) obesity due to excess calories (5) Decreased pedal pulses Start date: 06/13/21 Start time: 08:00 Status: Acute Category: Medical Code(s): R09.89 - Other specified symptoms and signs involving the circulatory and respiratory systems (6) Diabetic foot Start date: 06/13/21 Start time: 08:00 Status: Acute Category: Medical Code(s): E11.8 - Type 2 diabetes mellitus with unspecified complications (7) Callus of foot Start date: 06/13/21 Start time: 08:00 Status: Acute Category: Medical Code(s): L84 - Corns and callosities (8) Type 2 diabetes mellitus with diabetic nephropathy, without long-term current use of insulin Start date: 06/13/21 Start time: 08:00 Status: Acute Category: Medical Code(s): E11.21 - Type 2 diabetes mellitus with diabetic nephropathy (9) Calcaneal spur, right Start date: 06/13/21 Start time: 08:00 Status: Acute Category: Medical Code(s): M77.31 - Calcaneal spur, right foot (10) Acquired pes planus of both feet Start date: 06/13/21 Start time: 08:00 Status: Acute Category: Medical Code(s): M21.41 - Flat foot [pes planus] (acquired), right foot; M21.42 - Flat foot [pes planus] (acquired), left foot (11) Ac
--- NOTE | 2021-06-15 19:10 | PC.NURSE ---
PT HAS REFUSED MULTIPLE ATTEMPTS FOR DRESSING CHANGES THIS SHIFT.
[2021-06-16] VITALS: BP 135/79; PULSE 92; RESP 16; TEMP 36.7; O2SAT 92
--- NOTE | 2021-06-16 03:18 | PC.NURSE ---
Patient RLE dressing was changed in sterile fashion. Patient was pre-medicated prior to the changing and therefore tolerated it well. PARMINDER drain is noted to have SS drainage. iodophor packing, betadine soaked gauze, dry gauze, ABD pad, kerlix(x2) and lizabeth bandage (x2) was used. No complications noted.
[2021-06-16 03:54] VITALS: BP 145/77; PULSE 82; RESP 20; TEMP 36.6; O2SAT 92
[2021-06-16 05:00] VITALS: BMI 90.7
[2021-06-16 08:00] VITALS: BP 142/71; PULSE 99; RESP 17; TEMP 36.7; O2SAT 92
[2021-06-16 08:26] LABS: Basophils # 0.1 K/mm3 (0-0.2); Basophils % 0.7 % (0.1-2.0); Eosinophils # 0.1 K/mm3 (0.0-0.4); Hematocrit 31.6 % (37.0-47.0); Hemoglobin 9.8 g/dL (12.2-16.2); Lymphocytes # 2.2 K/mm3 (0.7-4.5); Lymphocytes % 25.5 % (10-50); Mean Corpuscular HGB Conc 31.1 g/dL (31.8-35.4); Mean Corpuscular Hemoglobin 30.6 pg (27.0-31.2); Mean Corpuscular Volume 98.4 fl (81-99); Mean Platelet Volume 10.5 fl (7.4-10.4); Monocytes # 0.5 K/mm3 (0.1-1.0); Monocytes % 5.3 % (1.7-9.3); Neutrophils # 5.7 K/mm3 (1.8-7.8); Neutrophils % 67.4 % (37.0-80.0); Platelet Count 271 K/mm3 (142-424); Red Blood Count 3.21 M/mm3 (4.20-5.40); Red Cell Distribution Width 15.6 % (11.5-17.5); White Blood Count 8.5 K/mm3 (4.8-10.8)
--- NOTE | 2021-06-16 09:00 | PC.NURSE ---
0900- IV INFUSION OF VANCOMYCIN INFILTRATED. IV WAS REMOVED. COLD COMPRESS APPLIED PER PHARMACY RECOMMENDATIONS. PT REFUSED NEW IV INSERTION. MADE AWARE. IV ABX CHANGED TO PO DOSE WHILE AWAITING PICC LINE INSERTION.
[2021-06-16 09:18] LABS: Adenovirus F 40/41, stool Not Detected (NotDetected); Astrovirus Not Detected (NotDetected); Campylobacter Not Detected (NotDetected); Clostridium Difficile A/B, PCR Not Detected (NotDetected); Cryptosporidium Not Detected (NotDetected); Cyclospora Cayetanesis Not Detected (NotDetected); Entamoeba histolytica Not Detected (NotDetected); Enteroaggregative E coli Not Detected (NotDetected); Enteropathogenic E coli Not Detected (NotDetected); Enterotoxigenic E coli Not Detected (NotDetected); Giardia lamblia Not Detected (NotDetected); Norovirus Not Detected (NotDetected); Plesimonas Shigalloides, PCR Not Detected (NotDetected); Rotavirus A Not Detected (NotDetected); Salmonella, PCR Not Detected (NotDetected); Sapovirus Not Detected (NotDetected); Shiga-like toxin E coli Not Detected (NotDetected); Shigella Enterovasive E coli Not Detected (NotDetected); Vibrio Cholerae Not Detected (NotDetected); Vibrio, PCR Not Detected (NotDetected); Yersinia Entercolitica, PCR Not Detected (NotDetected)
[2021-06-16 09:36] LABS: Chloride 109 mmol/L (98-107); Potassium 3.9 mmoL/L (3.5-5.1); Sodium 137 mmol/L (136-145)
[2021-06-16 09:39] LABS: Anion Gap 4.9 mEq/L (5-15); Blood Urea Nitrogen 5 mg/dl (7-17); Calcium 7.9 mg/dl (8.4-10.2); Carbon Dioxide 27 mmol/L (22.0-30.0); Creatinine Clearance Estimated 150 mL/min (50-200); Estimated Glomerular Filt Rate 129 ml/min (>60); GFR (African American) 156 ML/MIN (>60); Glucose 92 mg/dl (74-100)
--- NOTE | 2021-06-16 10:19 | HMH.ACPN2 ---
Internal Medicine - PN: Subj *Date: 06/16/21 *Time: 10:19 Interval history: doing better with stable labs - but still with sig leg swelling and reddness - declined new iv Exam Vital signs and Labs for Last 24 Hours: Temp Pulse Resp BP Pulse Ox 98.0 F 99 H 17 142/71 H 92 L 06/16/21 08:00 06/16/21 08:00 06/16/21 08:00 06/16/21 08:00 06/16/21 08:00 Laboratory Results - last 24 hr 06/16/21 06:21: WBC 8.5 D, RBC 3.21 L, Hgb 9.8 L, Hct 31.6 L, MCV 98.4, MCH 30.6, MCHC 31.1 L, RDW 15.6, Plt Count 271, MPV 10.5 H, Neut % (Auto) 67.4, Lymph % (Auto) 25.5, [place] % (Auto) 5.3, Eos % (Auto) 1.0, Baso % (Auto) 0.7, Neut # (Auto) 5.7, Lymph # (Auto) 2.2, [place] # (Auto) 0.5, Eos # (Auto) 0.1, Baso # (Auto) 0.1 06/16/21 06:21: Sodium 137, Potassium 3.9, Chloride 109 H, Carbon Dioxide 27, Anion Gap 4.9 L, BUN 5 L, Creatinine 0.50 L, Estimated Creat Clear 150, Estimated GFR 129, Est GFR ( Amer) 156, Glucose 92, Calcium 7.9 L 06/16/21 06:30: Stl Aeromonas (PCR) Not detected, Stl C. cayetanensis PCR Not detected, Stool Rotavirus (PCR) Not detected, Stl Adenov F 40/41 PCR Not detected, Stool Astrovirus (PCR) Not detected, Stool Campylobacter PCR Not detected, Stl C.difficile Tox PCR Not detected, Stool Cryptosporidium PCR Not detected, Stl E.coli Shiga Tox PCR Not detected, Stool E coli O157 PCR Not detected, Stl Enterotoxigenic E PCR Not detected, Stool EPEC (PCR) Not detected, Stool EAEC (PCR) Not detected, Stl E. histolytica PCR Not detected, Stool Giardia Lamblia PCR Not detected, Stool Salmonella PCR Not detected, Stool Sapovirus (PCR) Not detected, Stl P. shigelloides PCR Not detected, Stl Shigella/EIEC PCR Not detected, St Y.enterocolitica PCR Not detected, Stool Vibrio (PCR) Not detected, Stl Vibrio cholerae PCR Not detected, Stl Norovirus GI/GII PCR Not detected I & O for Last 24 hours: Intake & Output 06/13/21 06/14/21 06/15/21 06/16/21 11:59 11:59 11:59 11:59 Intake Total 951 / 951 1260 / 1260 1080 / 1080 1080 / 1080 Output Total 501 / 501 770 / 770 Balance 450 / 450 1230 / 1230 310 / 310 1080 / 1080 Weight 304 lb 1 oz 300 lb 14.4 oz 303 lb 9 oz 684 lb 5.037 oz Microbiology Reports for the Last 24 Hours: Microbiology 06/13/21 13:45 Ankle,Right - Final 06/13/21 13:45 Ankle,Right Gram Stain - Final 06/13/21 13:45 Ankle,Right Wound Culture - Preliminary 06/09/21 12:20 Blood Blood Culture - Preliminary Gram Negative Rods - Constitutional no acute distress, obese - *Routine HEENT Exam Head: Present: normocephalic Eye: Present: EOMI, PERRL ENT: Present: mucous membranes dry - *Routine Neck Exam Present: supple. Absent: JVD - *Routine Respiratory Exam Present: CTA bilaterally - *Routine Cardiovascular Exam Present: RRR - *Routine Abdominal Exam Present: soft - *Routine Extremities Exam Present: edema, tenderness Comments: red and consistent with cellulitis - *Routine Skin Exam Present: erythema - *Routine Neurological Exam Present: alert, CN II-XII intact - Routine Psychiatric Exam Present: cooperative Assessment and Plan (1) Cellulitis of right leg Start date: 06/13/21 Start time: 08:00 Status: Acute Category: Medical Code(s): L03.115 - Cellulitis of right lower limb (2) Hypocalcemia Status: Acute Category: Medical Code(s): E83.51 - Hypocalcemia (3) Hypokalemia Status: Acute Category: Medical Code(s): E87.6 - Hypokalemia (4) Severe obesity (BMI 35.0-39.9) with comorbidity Status: Acute Category: Medical Code(s): E66.01 - Morbid (severe) obesity due to excess calories (5) Decreased pedal pulses Start date: 06/13/21 Start time: 08:00 Status: Acute Category: Medical Code(s): R09.89 - Other specified symptoms and signs involving the circulatory and respiratory systems (6) Diabetic foot Start date: 06/13/21 Start time: 08:00 Status: Acute Category: Medical Code(s): E11
[2021-06-16 11:17] VITALS: BP 116/71; PULSE 91; RESP 18; TEMP 36.7; O2SAT 95
--- NOTE | 2021-06-16 14:30 | PC.NURSE ---
STERILE DRESSING CHANGE PERFORMED TO LOWER EXTREMITY PER ORDER. PATIENT TOLERATED WELL.
[2021-06-16 15:10] VITALS: BP 124/75; PULSE 84; RESP 16; TEMP 36.9; O2SAT 94
--- NOTE | 2021-06-16 15:55 | PC.NURSE ---
Courtesy round gisela. Ice water given, linens and trash taken out.
[2021-06-16 16:00] VITALS: BMI 40.9
[2021-06-16 20:00] VITALS: BP 155/85; PULSE 85; RESP 16; TEMP 37.6; O2SAT 91
[2021-06-17] VITALS: BP 147/80; PULSE 97; RESP 16; TEMP 36.6; O2SAT 92
[2021-06-17 04:00] VITALS: BP 129/72; PULSE 86; RESP 16; TEMP 36.8; O2SAT 93
[2021-06-17 05:00] VITALS: BMI 40.2
[2021-06-17 06:23] LABS: Basophils # 0.1 K/mm3 (0-0.2); Basophils % 0.9 % (0.1-2.0); Eosinophils # 0.1 K/mm3 (0.0-0.4); Eosinophils % 1.6 % (0.1-12.0); Hematocrit 33.8 % (37.0-47.0); Hemoglobin 10.6 g/dL (12.2-16.2); Lymphocytes # 2.5 K/mm3 (0.7-4.5); Lymphocytes % 30.1 % (10-50); Mean Corpuscular HGB Conc 31.4 g/dL (31.8-35.4); Mean Corpuscular Hemoglobin 30.4 pg (27.0-31.2); Mean Corpuscular Volume 96.8 fl (81-99); Mean Platelet Volume 9.8 fl (7.4-10.4); Monocytes # 0.4 K/mm3 (0.1-1.0); Monocytes % 5.1 % (1.7-9.3); Neutrophils # 5.2 K/mm3 (1.8-7.8); Neutrophils % 62.3 % (37.0-80.0); Platelet Count 323 K/mm3 (142-424); Red Blood Count 3.49 M/mm3 (4.20-5.40); Red Cell Distribution Width 15.5 % (11.5-17.5); White Blood Count 8.4 K/mm3 (4.8-10.8)
[2021-06-17 06:38] LABS: Anion Gap 9.1 mEq/L (5-15); Blood Urea Nitrogen 7 mg/dl (7-17); Calcium 8.6 mg/dl (8.4-10.2); Carbon Dioxide 28 mmol/L (22.0-30.0); Chloride 108 mmol/L (98-107); Creatinine Clearance Estimated 150 mL/min (50-200); Estimated Glomerular Filt Rate 129 ml/min (>60); GFR (African American) 156 ML/MIN (>60); Glucose 105 mg/dl (74-100); Potassium 4.1 mmoL/L (3.5-5.1); Sodium 141 mmol/L (136-145)
[2021-06-17 08:00] VITALS: BP 146/68; PULSE 87; RESP 20; TEMP 36.3; O2SAT 93; O2SAT 94
--- NOTE | 2021-06-17 08:41 | HMH.ORTHPN ---
Subjective Date: 06/17/21 <Viviane Arguello 06/17/21 08:48> Time: 08:00 <Viviane Arguello 06/17/21 08:48> Principal diagnosis: right lower extremity edema <Viviane Arguello 06/17/21 08:48> Interval history: Patient sitting up in bed. Alert and oriented x 3. No acute distress noted. Denies pain to right lower extremity. WBC trending down, decreased pain with palpation, and improved edema and erythema around right ankle. If symptoms worsen, we will consider obtaining right lower leg proximal CT scan. <Viviane Arguello 06/17/21 08:48> PN: Obj Ex Vital signs: Temp Pulse Resp BP Pulse Ox 97.8 F 80 20 159/83 H 93 L 06/17/21 16:00 06/17/21 16:00 06/17/21 16:00 06/17/21 16:00 06/17/21 16:00 <Jordyn Eubanks 06/17/21 17:51> Temp Pulse Resp BP Pulse Ox 98.2 F 86 16 129/72 93 L 06/17/21 04:00 06/17/21 04:00 06/17/21 04:00 06/17/21 04:00 06/17/21 04:00 <Viviane Arguello 06/17/21 08:48> - Constitutional no acute distress <Viviane Arguello 06/17/21 09:39> - Routine HEENT Exam Head: Present: normocephalic <Viviane Arguello 06/17/21 09:39> - Routine Respiratory Exam Absent: respiratory distress <Viviane Arguello 06/17/21 09:39> - Routine Cardiovascular Exam Present: RRR <Viviane Arguello 06/17/21 09:39> - Routine Abdominal Exam Present: soft <Viviane Arguello 06/17/21 09:39> - Routine Extremities Exam Present: edema <Viviane Arguello 06/17/21 09:39> - Detailed Lower Extremity Exam Ankle: Right erythema, Right swelling, Right wound <Viviane Arguello 06/17/21 09:39> Foot/Toes: Right swelling <Viviane Arguello - 06/17/21 09:39> Ankle image: 1 - 1 - Right lateral ankle bruising over previous blister site. Decreased pain with palpation. PARMINDER drain itnact. The right hallux has sutures c/d/i. Right anterior medial, anterior lateral and medial ankle have sutures c/d/i. The edema, erythema around the ankle has improved. There is still RLE erythema noted, most noticable around the knee. <Viviane Arguello - 06/17/21 09:39> Progress Note: A&P (1) Cellulitis of right leg Status: Acute (2) Hypocalcemia Status: Acute (3) Hypokalemia Status: Acute (4) Severe obesity (BMI 35.0-39.9) with comorbidity Status: Acute (5) Decreased pedal pulses Status: Acute (6) Diabetic foot Status: Acute (7) Callus of foot Status: Acute (8) Type 2 diabetes mellitus with diabetic nephropathy, without long-term current use of insulin Status: Acute (9) Calcaneal spur, right Status: Acute (10) Acquired pes planus of both feet Status: Acute (11) Acquired hallux valgus of both feet Status: Acute (12) Primary osteoarthritis of both feet Status: Acute (13) Cutaneous abscess of right ankle Status: Acute <Jordyn Eubanks - 06/17/21 17:51> (1) Cellulitis of right leg Start date: 06/17/21 Start time: 08:00 Status: Acute (2) Hypocalcemia Status: Acute (3) Hypokalemia Status: Acute (4) Severe obesity (BMI 35.0-39.9) with comorbidity Status: Acute (5) Decreased pedal pulses Start date: 06/17/21 Start time: 08:00 Status: Acute (6) Diabetic foot Start date: 06/17/21 Start time: 08:00 Status: Acute (7) Callus of foot Start date: 06/17/21 Start time: 08:00 Status: Acute (8) Type 2 diabetes mellitus with diabetic nephropathy, without long-term current use of insulin Start date: 06/17/21 Start time: 08:00 Status: Acute (9) Calcaneal spur, right Start date: 06/17/21 Start time: 08:00 Status: Acute (10) Acquired pes planus of both feet Start date: 06/17/21 Start time: 08:00 Status: Acute (11) Acquired hallux valgus of both feet Start date: 06/17/21 Start time: 08:00 Status: Acute (12) Primary osteoarthritis of both feet Start date: 06/17/21 Start time: 08:00 Status
--- NOTE | 2021-06-17 08:43 | XR_ITS ---
FINAL REPORT CLINICAL HISTORY: Confirm PICC line placement COMPARISON: CT dated June 12, 2021 FINDINGS: Left-sided PICC line tip terminates in the lower SVC. The heart size is normal. The mediastinum is normal. There is mild right base atelectasis. There are no pleural effusions. There is no pneumothorax. There is no osseous abnormality. IMPRESSION: Left-sided PICC line tip terminates in the lower SVC. Mild right base atelectasis. Reviewed, Interpreted and Dictated by Matt Campos III, MD Transcribed by Juan Grissom Authenticated by Matt Campos III, MD on 06/17/2021 11:17:02 AM [facility]
--- NOTE | 2021-06-17 08:43 | HMH.ACPN2 ---
Internal Medicine - PN: Subj *Date: 06/17/21 *Time: 08:10 Interval history: pt laying in bed podiatry at bedside Exam Vital signs and Labs for Last 24 Hours: Temp Pulse Resp BP Pulse Ox 98.2 F 86 16 129/72 93 L 06/17/21 04:00 06/17/21 04:00 06/17/21 04:00 06/17/21 04:00 06/17/21 04:00 Laboratory Results - last 24 hr 06/16/21 06:21: Sodium 137, Potassium 3.9, Chloride 109 H, Carbon Dioxide 27, Anion Gap 4.9 L, BUN 5 L, Creatinine 0.50 L, Estimated Creat Clear 150, Estimated GFR 129, Est GFR ( Amer) 156, Glucose 92, Calcium 7.9 L 06/16/21 06:30: Stl Aeromonas (PCR) Not detected, Stl C. cayetanensis PCR Not detected, Stool Rotavirus (PCR) Not detected, Stl Adenov F 40/41 PCR Not detected, Stool Astrovirus (PCR) Not detected, Stool Campylobacter PCR Not detected, Stl C.difficile Tox PCR Not detected, Stool Cryptosporidium PCR Not detected, Stl E.coli Shiga Tox PCR Not detected, Stool E coli O157 PCR Not detected, Stl Enterotoxigenic E PCR Not detected, Stool EPEC (PCR) Not detected, Stool EAEC (PCR) Not detected, Stl E. histolytica PCR Not detected, Stool Giardia Lamblia PCR Not detected, Stool Salmonella PCR Not detected, Stool Sapovirus (PCR) Not detected, Stl P. shigelloides PCR Not detected, Stl Shigella/EIEC PCR Not detected, St Y.enterocolitica PCR Not detected, Stool Vibrio (PCR) Not detected, Stl Vibrio cholerae PCR Not detected, Stl Norovirus GI/GII PCR Not detected 06/17/21 06:03: WBC 8.4, RBC 3.49 L, Hgb 10.6 L, Hct 33.8 L, MCV 96.8, MCH 30.4, MCHC 31.4 L, RDW 15.5, Plt Count 323, MPV 9.8, Neut % (Auto) 62.3, Lymph % (Auto) 30.1, [place] % (Auto) 5.1, Eos % (Auto) 1.6, Baso % (Auto) 0.9, Neut # (Auto) 5.2, Lymph # (Auto) 2.5, [place] # (Auto) 0.4, Eos # (Auto) 0.1, Baso # (Auto) 0.1 06/17/21 06:03: Sodium 141, Potassium 4.1, Chloride 108 H, Carbon Dioxide 28, Anion Gap 9.1, BUN 7 D, Creatinine 0.50 L, Estimated Creat Clear 150, Estimated GFR 129, Est GFR ( Amer) 156, Glucose 105 H, Calcium 8.6 I & O for Last 24 hours: Intake & Output 06/14/21 06/15/21 06/16/21 06/17/21 11:59 11:59 11:59 11:59 Intake Total 1260 / 1260 1080 / 1080 1080 / 1080 840 / 840 Output Total 770 / 770 500 / 500 Balance 1230 / 1230 310 / 310 1080 / 1080 340 / 340 Weight 300 lb 14.4 oz 303 lb 9 oz 684 lb 5.037 oz 303 lb 11.2 oz Microbiology Reports for the Last 24 Hours: Microbiology 06/09/21 12:20 Blood Blood Culture - Final Acinetobacter species Staphylococcus epidermidis - Constitutional no acute distress, obese - *Routine HEENT Exam Head: Present: normocephalic Eye: Present: PERRL ENT: Present: mucous membranes moist - *Routine Neck Exam Present: supple. Absent: lymphadenopathy - *Routine Respiratory Exam Present: CTA bilaterally - *Routine Cardiovascular Exam Present: RRR - *Routine Abdominal Exam Present: soft, normoactive bowel sounds. Absent: tenderness - *Routine Extremities Exam Comments: redness and edema just below knee - *Routine Skin Exam Present: warm, wounds. Absent: rash Comments: sutures in place,sindy drain in place, redness and edema to knee - *Routine Neurological Exam Present: alert, oriented X3 Assessment and Plan (1) Cellulitis of right leg Start date: 06/13/21 Start time: 08:00 Status: Acute Category: Medical Code(s): L03.115 - Cellulitis of right lower limb (2) Hypocalcemia Status: Acute Category: Medical Code(s): E83.51 - Hypocalcemia (3) Hypokalemia Status: Acute Category: Medical Code(s): E87.6 - Hypokalemia (4) Severe obesity (BMI 35.0-39.9) with comorbidity Status: Acute Category: Medical Code(s): E66.01 - Morbid (severe) obesity due to excess calories (5) Decreased pedal pulses Start date: 06/13/21 Start time: 08:00 Status: Acute Category: Medical Code(s): R09.89 - Other specified symptoms and signs involving the circulatory and respiratory
--- NOTE | 2021-06-17 09:51 | DIET.NUTRFU ---
Patient continues to receive IV ABT for leg. It continues to be red and swollen, wound care present during rounds. Continues on diabetic diet with good meal intake, consuming 75-100% at most meals. Glucose slightly elevated but controlled. No meds in place at this time. Metformin had been discontinued [employer]. Lives at [facility], not sure of discharge plan at this time. May need rehab facility depending on ABT tx plan. No dietary concerns at this time.
[2021-06-17 12:00] VITALS: BP 153/78; PULSE 88; RESP 18; TEMP 36.6; O2SAT 94
[2021-06-17 16:00] VITALS: BP 159/83; PULSE 80; RESP 20; TEMP 36.6; O2SAT 93
[2021-06-17 20:00] VITALS: BP 147/88; PULSE 89; RESP 18; TEMP 36.9; O2SAT 95
[2021-06-18] VITALS: BP 151/80; PULSE 89; RESP 16; TEMP 36.5; O2SAT 93
[2021-06-18 04:00] VITALS: BP 153/88; PULSE 82; RESP 15; TEMP 36.5; O2SAT 94
[2021-06-18 05:00] VITALS: BMI 40.6
[2021-06-18 06:03] LABS: Basophils # 0.1 K/mm3 (0-0.2); Basophils % 1.6 % (0.1-2.0); Eosinophils # 0.2 K/mm3 (0.0-0.4); Hematocrit 32.5 % (37.0-47.0); Hemoglobin 10.3 g/dL (12.2-16.2); Lymphocytes # 2.6 K/mm3 (0.7-4.5); Lymphocytes % 33.4 % (10-50); Mean Corpuscular HGB Conc 31.5 g/dL (31.8-35.4); Mean Corpuscular Hemoglobin 30.4 pg (27.0-31.2); Mean Corpuscular Volume 96.3 fl (81-99); Mean Platelet Volume 10.3 fl (7.4-10.4); Monocytes # 0.4 K/mm3 (0.1-1.0); Monocytes % 5.4 % (1.7-9.3); Neutrophils # 4.5 K/mm3 (1.8-7.8); Neutrophils % 57.6 % (37.0-80.0); Platelet Count 328 K/mm3 (142-424); Red Blood Count 3.38 M/mm3 (4.20-5.40); Red Cell Distribution Width 15.6 % (11.5-17.5); White Blood Count 7.9 K/mm3 (4.8-10.8)
[2021-06-18 06:11] LABS: Anion Gap 5.1 mEq/L (5-15); Blood Urea Nitrogen 5 mg/dl (7-17); Calcium 8.7 mg/dl (8.4-10.2); Carbon Dioxide 30 mmol/L (22.0-30.0); Chloride 106 mmol/L (98-107); Creatinine Clearance Estimated 150 mL/min (50-200); Estimated Glomerular Filt Rate 129 ml/min (>60); GFR (African American) 156 ML/MIN (>60); Glucose 102 mg/dl (74-100); Potassium 4.1 mmoL/L (3.5-5.1); Sodium 137 mmol/L (136-145)
[2021-06-18 08:00] VITALS: BP 130/73; PULSE 92; RESP 18; TEMP 36.5; O2SAT 93
--- NOTE | 2021-06-18 08:49 | HMH.ORTHPN ---
Subjective Date: 06/18/21 <Viviane Arguello - 06/18/21 09:29> Time: 08:30 <Viviane Arguello - 06/18/21 09:29> Principal diagnosis: right lower extremity edema <Viviane Arguello - 06/18/21 09:29> Interval history: Patient lying in bed. Alert and oriented x 3. No acute distress noted. Denies pain to right lower extremity. WBC trending down, decreased pain with palpation, and improved edema and erythema around right ankle. New blister noted to back of proximal right calf with clear creamy drainage. Culture taken. Picc line noted to left upper arm. Patient waiting on rehab placement. <Viviane Arguello - 06/18/21 09:29> PN: Obj Ex Vital signs: Temp Pulse Resp BP Pulse Ox 97.7 F 92 H 18 130/73 93 L 06/18/21 08:00 06/18/21 08:00 06/18/21 08:00 06/18/21 08:00 06/18/21 08:00 <ChaJordyn - 06/18/21 12:35> Temp Pulse Resp BP Pulse Ox 97.7 F 92 H 18 130/73 93 L 06/18/21 08:00 06/18/21 08:00 06/18/21 08:00 06/18/21 08:00 06/18/21 08:00 <Viviane Arguello - 06/18/21 09:29> - Constitutional no acute distress <Viviane Arguello 06/18/21 09:29> - Routine HEENT Exam Head: Present: normocephalic <Viviane Arguello 06/18/21 09:29> - Routine Respiratory Exam Absent: respiratory distress <Viviane Arguello 06/18/21 09:29> - Routine Cardiovascular Exam Present: RRR <Viviane Arguello 06/18/21 09:29> - Routine Abdominal Exam Present: soft <Viviane Arguello 06/18/21 09:29> - Routine Extremities Exam Present: edema <Viviane Arguello 06/18/21 09:29> - Detailed Lower Extremity Exam Lower leg: Right swelling, Right wound, Right erythema <Viviane Arguello - 06/18/21 09:29> Ankle: Right erythema, Right swelling, Right tenderness, Right wound <Viviane Arguello - 06/18/21 09:29> Foot/Toes: Right erythema, Right swelling, Right tenderness, Right wound <Viviane Arguello - 06/18/21 09:29> Leg image: 1 - 1- right lower leg with less erythema more proximal, new blister noted to back of proximal calf. Utilizing 15' blade, the blister was open, minimal creamy drainage, no purulent drainage noted, culture taken. 2- Right lateral ankle bruising over previous blister site. Decreased pain with palpation. PARMINDER drain intact. The right hallux has sutures c/d/i. Right anterior medial, anterior lateral and medial ankle have sutures c/d/i. The edema, erythema around the ankle has improved. There is still RLE erythema noted, most noticable around the knee. <Viviane Arguello - 06/18/21 09:29> Progress Note: A&P (1) Cellulitis of right leg Status: Acute (2) Hypocalcemia Status: Acute (3) Hypokalemia Status: Acute (4) Severe obesity (BMI 35.0-39.9) with comorbidity Status: Acute (5) Decreased pedal pulses Status: Acute (6) Diabetic foot Status: Acute (7) Callus of foot Status: Acute (8) Type 2 diabetes mellitus with diabetic nephropathy, without long-term current use of insulin Status: Acute (9) Calcaneal spur, right Status: Acute (10) Acquired pes planus of both feet Status: Acute (11) Acquired hallux valgus of both feet Status: Acute (12) Primary osteoarthritis of both feet Status: Acute (13) Cutaneous abscess of right ankle Status: Acute (14) Blister of right lower leg Status: Acute <Jordyn Eubanks - 06/18/21 12:35> (1) Cellulitis of right leg Start date: 06/18/21 Start time: 08:30 Status: Acute (2) Hypocalcemia Status: Acute (3) Hypokalemia Status: Acute (4) Severe obesity (BMI 35.0-39.9) with comorbidity Status: Acute (5) Decreased pedal pulses Start date: 06/18/21 Start time: 08:30 Status: Acute (6) Diabetic foot Start date: 06/18/21 Start time: 08:30 Status: Acute (7) Callus of foot Start date: 06/18/21 Start time: 08:30 Status: Acute (8) Type 2 diabetes mellitus with diabetic nephropathy,
--- NOTE | 2021-06-18 10:05 | CT_ITS ---
FINAL REPORT CLINICAL HISTORY: poss abccess, redness/swelling. 120ml Isovue FINDINGS: Axial images of the right lower extremity was performed by computed tomography after the injection of IV contrast. Sagittal and coronal reformatted images were obtained and reviewed. No fracture is identified. There are severe degenerative changes of the knee. There are mild degenerative changes of the ankle. There is a chronic distal fibular fracture. There is circumferential subcutaneous edema or cellulitis. A drain is present in the left ankle subcutaneous tissues. There is a fluid collection adjacent to the medial head of the gastrocnemius muscle which is favored to represent inferior extension of a popliteal cyst. No other fluid collection is identified to suggest an abscess. IMPRESSION: No fluid collection identified to suggest an abscess. Subcutaneous edema or cellulitis. Reviewed, Interpreted and Dictated by Matt Campos III, MD Transcribed by Ena Rob Authenticated by Matt Campos III, MD on 06/18/2021 01:45:59 PM [facility]
--- NOTE | 2021-06-18 10:57 | PC.NURSE ---
Pt down for ct at this time.
[2021-06-18 13:21] LABS: Vancomycin,Trough 20.5 ug/mL (5.0-10.0)
--- NOTE | 2021-06-18 13:38 | HMH.PHACONS ---
- Pharmacy Consult Date: 06/18/21 Time: 13:38 Referring provider: DR. SERRANO Reason for Consult:: VANCOMYCIN DOSING CHANGE Allergies and ADEs:: Allergies Allergy/AdvReac Type Severity Reaction Status Date / Time nut - unspecified Allergy Severe Swelling Verified 06/11/21 06:08 of Lip/Tongue/Throat codeine Allergy Unknown Unknown Verified 06/12/21 11:38 allergy reaction Penicillins Allergy Unknown Unknown Verified 06/12/21 11:38 allergy reaction Home Medications:: Home Medications Medication Instructions Recorded Confirmed Type hydroxyzine pamoate 50 mg capsule 50 mg PO TIDP PRN cap 03/25/21 06/10/21 History paroxetine HCl 30 mg tablet 30 mg PO DAILY tab 03/25/21 06/09/21 History quetiapine 400 mg tablet,extended 400 mg PO BID tab 03/25/21 06/09/21 History release 24 hr Gabapentin 300 mg PO TID 06/09/21 06/09/21 History Acetaminophen [Acetaminophen 325mg 650 mg PO Q8HP PRN 06/10/21 06/10/21 History tab] Ibuprofen [Ibuprofen 600mg 600 mg PO Q6HP PRN 06/10/21 06/10/21 History Tablet] Loperamide HCl [Anti-Diarrheal] 2 mg PO Q6HP PRN 06/10/21 06/10/21 History Metformin HCl 500 mg PO HS 06/10/21 06/10/21 History ondansetron HCL [Ondansetron 4mg 4 mg PO QIDP PRN 06/10/21 06/10/21 History tab*] Height: 1.85 m Weight: 138.981 kg Laboratory Results:: Laboratory Results - last 24 hr 06/18/21 05:34: WBC 7.9, RBC 3.38 L, Hgb 10.3 L, Hct 32.5 L, MCV 96.3, MCH 30.4, MCHC 31.5 L, RDW 15.6, Plt Count 328, MPV 10.3, Neut % (Auto) 57.6, Lymph % (Auto) 33.4, [place] % (Auto) 5.4, Eos % (Auto) 2.0, Baso % (Auto) 1.6, Neut # (Auto) 4.5, Lymph # (Auto) 2.6, [place] # (Auto) 0.4, Eos # (Auto) 0.2, Baso # (Auto) 0.1 06/18/21 05:34: Sodium 137, Potassium 4.1, Chloride 106, Carbon Dioxide 30, Anion Gap 5.1, BUN 5 L D, Creatinine 0.50 L, Estimated Creat Clear 150, Estimated GFR 129, Est GFR ( Amer) 156, Glucose 102 H, Calcium 8.7 06/18/21 12:28: Vancomycin Trough 20.5 H Medical History: Reports:: Anxiety, Depression, Diabetes Mellitus Type 2, Gastroesophageal Reflux Disease(GERD), Migraine Denies:: Cancer, Diabetes Mellitus Type 1, MRSA, Seizures Assessment and Plan (1) Cellulitis of right leg Start date: 06/18/21 Start time: 08:30 Status: Acute Category: Medical Code(s): L03.115 - Cellulitis of right lower limb (2) Hypocalcemia Status: Acute Category: Medical Code(s): E83.51 - Hypocalcemia (3) Hypokalemia Status: Acute Category: Medical Code(s): E87.6 - Hypokalemia (4) Severe obesity (BMI 35.0-39.9) with comorbidity Status: Acute Category: Medical Code(s): E66.01 - Morbid (severe) obesity due to excess calories (5) Decreased pedal pulses Start date: 06/18/21 Start time: 08:30 Status: Acute Category: Medical Code(s): R09.89 - Other specified symptoms and signs involving the circulatory and respiratory systems (6) Diabetic foot Start date: 06/18/21 Start time: 08:30 Status: Acute Category: Medical Code(s): E11.8 - Type 2 diabetes mellitus with unspecified complications (7) Callus of foot Start date: 06/18/21 Start time: 08:30 Status: Acute Category: Medical Code(s): L84 - Corns and callosities (8) Type 2 diabetes mellitus with diabetic nephropathy, without long-term current use of insulin Start date: 06/18/21 Start time: 08:30 Status: Acute Category: Medical Code(s): E11.21 - Type 2 diabetes mellitus with diabetic nephropathy (9) Calcaneal spur, right Start date: 06/18/21 Start time: 08:30 Status: Acute Category: Medical Code(s): M77.31 - Calcaneal spur, right foot (10) Acquired pes planus of both feet Start date: 06/18/21 Start time: 08:30 Status: Acute Category: Medical Code(s): M21.41 - Flat foot [pes planus] (acquired), right foot; M21.42 - Flat foot [pes planus] (acquired), left foot (11) Acquired hallux valgus of both feet Start date: 06/18/21 Start time: 0
--- NOTE | 2021-06-18 14:11 | HMH.DCSUM ---
General - General Admission date:: 06/09/21 Discharge date: 06/18/21 HPI HPI: 51 yr old female presents to ed with Complains of swelling, pain, redness right leg from [facility] personal long term. Patient states she thinks she was bit by something a couple of days ago. She said it awakened her from sleep when she felt a sting on the top of her right foot. Now has swelling redness and pain of her right lower extremity from the foot up to the knee. Patient states before she felt the sting she had begun running fevers on Thursday up to 102 degrees. No history of cellulitis of the lower extremity in the past. Patient was found to have cellulites and electrolyte abnormal and admitted for iv antibiotics and monitoring of labs Hospital Course Hospital Course: Abnormal Lab Results 06/18/21 05:34: RBC 3.38 L, Hgb 10.3 L, Hct 32.5 L, MCHC 31.5 L 06/18/21 05:34: BUN 5 L D, Creatinine 0.50 L, Glucose 102 H 06/18/21 12:28: Vancomycin Trough 20.5 H Microbiology 06/13/21 13:45 Ankle,Right - Final 06/13/21 13:45 Ankle,Right - Final 06/09/21 12:20 Blood Blood Culture - Final Acinetobacter species Staphylococcus epidermidis 06/13/21 13:45 Ankle,Right Gram Stain - Final 06/13/21 13:45 Ankle,Right Wound Culture - Preliminary 06/09/21 12:20 Blood Blood Culture - Final NO GROWTH AFTER [address] leg FINAL REPORT CLINICAL HISTORY: poss abccess, redness/swelling. 120ml Isovue FINDINGS: Axial images of the right lower extremity was performed by computed tomography after the injection of IV contrast. Sagittal and coronal reformatted images were obtained and reviewed. No fracture is identified. There are severe degenerative changes of the knee. There are mild degenerative changes of the ankle. There is a chronic distal fibular fracture. There is circumferential subcutaneous edema or cellulitis. A drain is present in the left ankle subcutaneous tissues. There is a fluid collection adjacent to the medial head of the gastrocnemius muscle which is favored to represent inferior extension of a popliteal cyst. No other fluid collection is identified to suggest an abscess. IMPRESSION: No fluid collection identified to suggest an abscess. Subcutaneous edema or cellulitis. Ordering Physician: Shira Melendrez APRN Date of Service: 06/17/21 Procedure(s): XR chest portable PICC plac Accession Number(s): [id number] cc: Gamal Street MD; Matt Campos MD~ FINAL REPORT CLINICAL HISTORY: Confirm PICC line placement COMPARISON: CT dated June 12, 2021 FINDINGS: Left-sided PICC line tip terminates in the lower SVC. The heart size is normal. The mediastinum is normal. There is mild right base atelectasis. There are no pleural effusions. There is no pneumothorax. There is no osseous abnormality. IMPRESSION: Left-sided PICC line tip terminates in the lower SVC. Mild right base atelectasis. Ordering Physician: Viviane Arguello APRN Date of Service: 06/12/21 Procedure(s): US Arterial Lower Ext Rest Accession Number(s): [id number] cc: Gamal Street MD; John Irving MD~ FINAL REPORT CLINICAL HISTORY: decreased pedal pulses, edema, red angry RLE ankle to knee. hot to touch, smoker FINDINGS: ANKLE/BRACHIAL INDICES FINDINGS: Pressure indices are as follows: RIGHT LOWER EXTREMITY: Ankle brachial pressure index: 1.19 Comments: normal LEFT LOWER EXTREMITY: Ankle brachial pressure index: 1.18 Comments: normal IMPRESSION: No evidence of significant obstructive peripheral vascular disease of the lower extremities. Ordering Physician: Shira Melendrez APRN Date of Service: 06/12/21 Procedure(s): CT angio abdomen pelvis Accession Number(s): [id number] cc: Shira Melendrez APRN; Gamal Street MD; John Irving MD~ FINAL REPORT CLINICAL HISTORY: r/o blockages or clot rt leg, eval common iliacs for
--- NOTE | 2021-06-18 14:24 | PC.NURSE ---
Notified pharmacy of vanc trough of 20.5, (Efrain). Med orders changed per may.
--- NOTE | 2021-06-18 16:52 | PC.NURSE ---
Sent pt with post op boot.
[2021-12-19 10:58] LABS: POC Glucose,Bedside 91 (70-110)
== END 2021-06-18 16:00 | disposition home or self-care (01) | DRG 603 ==
LOC: ER 16:01 → 2ND 06-10 07:40
PROVIDERS: Nurse Practitioner Family; Podiatrist; Admitting Provider Emergency Medicine; Emergency Provider Emergency Medicine; PCP Emergency Medicine; Visit Provider Emergency Medicine
PROC: 0HBMXZZ Excision of Right Foot Skin, External Approach (ICD-10-PCS; principal; 2021-06-13 13:30)
DX: Z68.41 Body mass index [BMI] 40.0-44.9, adult (principal); L02.415 Cutaneous abscess of right lower limb; L03.115 Cellulitis of right lower limb; E11.21 Type 2 diabetes mellitus with diabetic nephropathy; E87.6 Hypokalemia; E66.01 Morbid (severe) obesity due to excess calories; Z20.822 Contact with and (suspected) exposure to COVID-19; E83.51 Hypocalcemia; F17.210 Nicotine dependence, cigarettes, uncomplicated; F32.A Depression, unspecified; K21.9 Gastro-esophageal reflux disease without esophagitis; G43.909 Migraine, unspecified, not intractable, without status migrainosus; M19.071 Primary osteoarthritis, right ankle and foot; S80.821A Blister (nonthermal), right lower leg, initial encounter
CPT/HCPCS: 97597; 28008; 36410; 36415; 36569; 71045; 73610; 73630; 73700; 73701; 74174; 80048; 80053; 80202; 81001; 82962; 83605; 83735; 83970; 84100; 85007; 85025; 85651; 86140; 87040; 87070; 87075; 87077; 87186; 87205; 87507; 93005; 93923; 93971; 96365; 96375; 97110; 97116; 97162; 99285; C1751; C9803; J1956; J3370; Q9967; U0003; U0005

== ENCOUNTER → 2021-06-20 09:24 | Outpatient (CLI) | payer MEDICAID, SELFPAY ==
[2021-06-20 11:04] LABS: Vancomycin,Trough 17.5 ug/mL (5.0-10.0)
[2021-06-20 12:12] LABS: Anion Gap 9.1 mEq/L (5-15); Blood Urea Nitrogen 3 mg/dl (7-17); Calcium 8.3 mg/dl (8.4-10.2); Carbon Dioxide 28 mmol/L (22.0-30.0); Chloride 106 mmol/L (98-107); Estimated Glomerular Filt Rate 167 ml/min (>60); GFR (African American) 202 ML/MIN (>60); Glucose 129 mg/dl (74-100); Potassium 4.1 mmoL/L (3.5-5.1); Sodium 139 mmol/L (136-145)
== END ==
PROVIDERS: Visit Provider Emergency Medicine
DX: M79.661 Pain in right lower leg (principal); M79.89 Other specified soft tissue disorders
CPT/HCPCS: 80048; 80202

== ENCOUNTER → 2021-06-22 08:57 | Outpatient (CLI) | payer MEDICAID, SELFPAY ==
[2021-06-22 09:44] LABS: Chloride 107 mmol/L (98-107); Sodium 139 mmol/L (136-145)
[2021-06-22 09:45] LABS: Potassium 3.8 mmoL/L (3.5-5.1)
[2021-06-22 09:47] LABS: Blood Urea Nitrogen 3 mg/dl (7-17); Estimated Glomerular Filt Rate 105 ml/min (>60); GFR (African American) 127 ML/MIN (>60)
[2021-06-22 09:48] LABS: Anion Gap 6.8 mEq/L (5-15); Calcium 8.1 mg/dl (8.4-10.2); Carbon Dioxide 29 mmol/L (22.0-30.0); Glucose 89 mg/dl (74-100)
[2021-06-22 11:31] LABS: Vancomycin,Trough 20.2 ug/mL (5.0-10.0)
== END ==
PROVIDERS: PCP Emergency Medicine; Visit Provider Emergency Medicine
DX: L03.115 Cellulitis of right lower limb (principal); Z51.81 Encounter for therapeutic drug level monitoring
CPT/HCPCS: 80048; 80202

== ENCOUNTER → 2021-06-24 08:43 | Outpatient (CLI) | payer MEDICAID, SELFPAY ==
[2021-06-24 09:18] LABS: Anion Gap 7.4 mEq/L (5-15); Blood Urea Nitrogen 3 mg/dl (7-17); Calcium 8.6 mg/dl (8.4-10.2); Carbon Dioxide 30 mmol/L (22.0-30.0); Chloride 107 mmol/L (98-107); Estimated Glomerular Filt Rate 129 ml/min (>60); GFR (African American) 156 ML/MIN (>60); Glucose 94 mg/dl (74-100); Potassium 4.4 mmoL/L (3.5-5.1); Sodium 140 mmol/L (136-145)
== END ==
PROVIDERS: PCP Emergency Medicine; Visit Provider Emergency Medicine
DX: Z51.81 Encounter for therapeutic drug level monitoring (principal); L03.115 Cellulitis of right lower limb
CPT/HCPCS: 80048; 80202

== ENCOUNTER → 2021-06-27 11:39 | Outpatient (CLI) | payer MEDICAID, SELFPAY ==
[2021-06-27 13:11] LABS: Vancomycin,Trough 20.9 ug/mL (5.0-10.0)
[2021-06-27 14:01] LABS: Chloride 106 mmol/L (98-107); Sodium 142 mmol/L (136-145)
[2021-06-27 14:02] LABS: Potassium 4.3 mmoL/L (3.5-5.1)
[2021-06-27 14:04] LABS: Blood Urea Nitrogen 4 mg/dl (7-17); Estimated Glomerular Filt Rate 88 ml/min (>60); GFR (African American) 106 ML/MIN (>60)
[2021-06-27 14:05] LABS: Anion Gap 9.3 mEq/L (5-15); Calcium 8.1 mg/dl (8.4-10.2); Carbon Dioxide 31 mmol/L (22.0-30.0); Glucose 91 mg/dl (74-100)
== END ==
PROVIDERS: Visit Provider Emergency Medicine
DX: L03.115 Cellulitis of right lower limb (principal); Z51.81 Encounter for therapeutic drug level monitoring
CPT/HCPCS: 80048; 80202

== ENCOUNTER → 2021-06-30 10:36 | Outpatient (CLI) | payer MEDICAID, SELFPAY ==
[2021-06-30 11:26] LABS: Anion Gap 5.6 mEq/L (5-15); Blood Urea Nitrogen 5 mg/dl (7-17); Carbon Dioxide 32 mmol/L (22.0-30.0); Chloride 105 mmol/L (98-107); Estimated Glomerular Filt Rate 105 ml/min (>60); GFR (African American) 127 ML/MIN (>60); Glucose 96 mg/dl (74-100); Potassium 3.6 mmoL/L (3.5-5.1); Sodium 139 mmol/L (136-145)
[2021-06-30 11:31] LABS: Vancomycin,Trough 14.2 ug/mL (5.0-10.0)
== END ==
PROVIDERS: PCP Emergency Medicine; Visit Provider Emergency Medicine
DX: Z51.81 Encounter for therapeutic drug level monitoring (principal)
CPT/HCPCS: 80048; 80202

== ENCOUNTER 2021-07-03 12:13 | Inpatient (IN) | payer MEDICAID, SELFPAY ==
[2021-07-03] VITALS (17 sets, daily range): BP systolic 108–146; BP diastolic 57–110; PULSE 85–110; RESP 16–20; TEMP 37.2–39.2; O2SAT 85–94; BMI 40.7; BMI 42.1
--- NOTE | 2021-07-03 12:07 | ECG_ITS ---
APPROVED REPORT Exam: Resting ECG HR:113 bpm ECG Measurements Heart Rate 113 AXES MI 186 P 40 QRSd 83 QRS 80 QT 297 T 75 QTc 364 Conclusion SINUS TACHYCARDIA ABNORMAL RHYTHM ECG UNCONFIRMED REPORT Electronically signed by : Gary Hines MD 07/04/2021 17:42:49
--- NOTE | 2021-07-03 12:15 | PC.NURSE ---
ED MD at
--- NOTE | 2021-07-03 12:16 | HMH.EDGENADL ---
ED Disposition Clinical Impression: Multiorgan failure Sepsis Qualifiers: Sepsis type: sepsis due to unspecified organism Sepsis acute organ dysfunction status: with acute organ dysfunction Severe sepsis acute organ dysfunction type: acute renal failure Acute renal failure type: unspecified Severe sepsis shock status: without septic shock Qualified Code(s): A41.9 - Sepsis, unspecified organism; R65.20 - Severe sepsis without septic shock; N17.9 - Acute kidney failure, unspecified Acute renal failure Qualifiers: Acute renal failure type: unspecified Qualified Code(s): N17.9 - Acute kidney failure, unspecified Respiratory failure with hypoxia Qualifiers: Chronicity: acute Qualified Code(s): J96.01 - Acute respiratory failure with hypoxia Disposition: Admitted As Inpatient Condition on Discharge: Critical Referrals: Provider,Referral, [Referring] - - Critical Care Critical Care Time: Yes Attestation: On 07/03/21, the high probability of a clinically significant, sudden or life threatening deterioration of the following system(s) required my full and direct attention, intervention and personal management. The time I documented below is in addition to time spent performing reported procedures but includes the following listed in this critical care notation. Total Critical Care Time: 45 Vital system(s) involved:: Respiratory Failure, Renal Failure My critical care processes included: Assessment & monitoring of V/S, Initial and Re-exams, Data Review/Interpretation, Coordinating Care, Medication Orders and management, Documentation Medical Decision Making - Medical Records Medical records reviewed: Yes: I reviewed the patient's medical records. MR Comment: Reviewed discharge summary from admission 06/09/2021 through 06/18/2021. Reviewed operative note, Dr. Eubanks, 06/13/2021. Reviewed reports of Doppler ultrasound of right lower extremity, arterial Dopplers of lower extremities, CT scans and x-rays. - [place] Inquiry Pt receiving controlled substance: No Vital Signs: 07/03/21 12:07 07/03/21 12:10 07/03/21 12:24 Temperature 102.6 F H Temperature Source Oral Pulse Rate 110 H Pulse Rate [Left Radial] 85 Respiratory Rate 16 Blood Pressure 116/70 Blood Pressure [Right Arm] 146/64 H Blood Pressure Mean 100 Blood Pressure Mean [Right Arm] 91 Blood Pressure Source [Right Arm] Automatic Cuff Blood Pressure Position [Right Arm] Sitting 02 Sat by Pulse Oximetry 85 L 94 L 94 L Oxygen Delivery Method Nasal Cannula Venturi Mask Oxygen Flow Rate (LPM) 5 07/03/21 12:31 07/03/21 13:00 07/03/21 13:31 Temperature Temperature Source Pulse Rate 110 H 104 H 101 H Pulse Rate [Left Radial] Respiratory Rate Blood Pressure 122/102 H 117/78 132/110 H Blood Pressure [Right Arm] Blood Pressure Mean 106 91 113 Blood Pressure Mean [Right Arm] Blood Pressure Source [Right Arm] Blood Pressure Position [Right Arm] 02 Sat by Pulse Oximetry 92 L 92 L 92 L Oxygen Delivery Method Oxygen Flow Rate (LPM) 07/03/21 13:32 07/03/21 14:01 07/03/21 14:31 Temperature Temperature Source Pulse Rate 102 H 102 H 96 H Pulse Rate [Left Radial] Respiratory Rate Blood Pressure 132/110 H 134/66 119/60 Blood Pressure [Right Arm] Blood Pressure Mean 88 79 Blood Pressure Mean [Right Arm] Blood Pressure Source [Right Arm] Blood Pressure Position [Right Arm] 02 Sat by Pulse Oximetry 89 L 92 L 92 L Oxygen Delivery Method Oxygen Flow Rate (LPM) - Lab Data Lab Results 07/03/21 12:23: WBC 3.9 L, RBC 3.08 L, Hgb 9.1 L, Hct 28.6 L, MCV 93.0, MCH 29.6, MCHC 31.9, RDW 16.1, Plt Count 90 L, MPV 11.3 H, Neut % (Auto) 65.4, Lymph % (Auto) 20.6, [place] % (Auto) 6.2, Eos % (Auto) 7.2, Baso % (Auto) 0.6, Neut # (Auto) 2.5, Lymph # (Auto) 0.8, [place] # (Auto) 0.2, Eos # (Auto) 0.3, Baso # (Auto) 0.0 07/03/21 12:23: Sodium 133 L, Potassium 4.5, Chloride 103, Carbon Dioxide 23, Anio
--- NOTE | 2021-07-03 12:32 | XR_ITS ---
FINAL REPORT CLINICAL HISTORY: hypoxia, fever COMPARISON: June 17, 2021 FINDINGS: The heart size is mildly enlarged. The mediastinum is within normal limits. There are coarse interstitial opacities in both lungs, probably chronic. There is no pleural effusion. There is no pneumothorax. The bony thorax is intact. A left-sided PICC line terminates in the SVC. IMPRESSION: No acute cardiopulmonary process. Reviewed, Interpreted and Dictated by John Irving MD Transcribed by Juan Grissom Authenticated by John Irving MD on 07/03/2021 01:36:45 PM [facility]
[2021-07-03 12:38] LABS: Coronavirus 19, PCR Not Detected (NotDetected); Influenza A, PCR Not Detected (NotDetected); Influenza B, PCR Not Detected (NotDetected)
[2021-07-03 12:42] LABS: Basophils % 0.6 % (0.1-2.0); Eosinophils # 0.3 K/mm3 (0.0-0.4); Eosinophils % 7.2 % (0.1-12.0); Hematocrit 28.6 % (37.0-47.0); Hemoglobin 9.1 g/dL (12.2-16.2); Lymphocytes # 0.8 K/mm3 (0.7-4.5); Lymphocytes % 20.6 % (10-50); Mean Corpuscular HGB Conc 31.9 g/dL (31.8-35.4); Mean Corpuscular Hemoglobin 29.6 pg (27.0-31.2); Mean Platelet Volume 11.3 fl (7.4-10.4); Monocytes # 0.2 K/mm3 (0.1-1.0); Monocytes % 6.2 % (1.7-9.3); Neutrophils # 2.5 K/mm3 (1.8-7.8); Neutrophils % 65.4 % (37.0-80.0); Platelet Count 90 K/mm3 (142-424); Red Blood Count 3.08 M/mm3 (4.20-5.40); Red Cell Distribution Width 16.1 % (11.5-17.5); White Blood Count 3.9 K/mm3 (4.8-10.8)
[2021-07-03 12:47] LABS: Alanine Aminotransferase 33 U/L (12-78); Alkaline Phosphatase 98 U/L (38-126); Anion Gap 11.5 mEq/L (5-15); Aspartate Amino Transferase 66 U/L (14-36); Bilirubin,Total 0.4 mg/dl (0.2-1.3); Blood Urea Nitrogen 21 mg/dl (7-17); Calcium 7.2 mg/dl (8.4-10.2); Carbon Dioxide 23 mmol/L (22.0-30.0); Chloride 103 mmol/L (98-107); Creatinine Clearance Estimated 39 mL/min (50-200); Estimated Glomerular Filt Rate 13 ml/min (>60); GFR (African American) 16 ML/MIN (>60); Globulin 3.1 g/dL (1.3-3.2); Glucose 112 mg/dl (74-100); Potassium 4.5 mmoL/L (3.5-5.1); Sodium 133 mmol/L (136-145); Total Protein,Serum 6.1 g/dl (6.3-8.2)
[2021-07-03 12:51] LABS: Lactic Acid 0.6 mmol/L (0.7-2.1)
[2021-07-03 12:52] LABS: C-Reactive Protein 195.6 mg/L (0-4)
[2021-07-03 13:01] LABS: ABG Base Excess -3.2 mmol/L (-2.4-2.3); ABG HCO3 22.8 mmhg (22.0-26.0); ABG Oxygen Saturation 91 % (90-100); ABG PCO2 44.5 mmhg (35.0-45.0); ABG PH 7.33 mmol/L (7.35-7.45); ABG PO2 60.5 mmhg (80-100); ABG TCO2 24.1 mmhg (23-27)
[2021-07-03 13:02] LABS: Allen's Test Acceptable; Oxygen 40% vm %
[2021-07-03 13:03] LABS: Procalcitonin 2.08 ng/mL (0.0-2.0)
[2021-07-03 13:03] LABS: Source Left Radial
[2021-07-03 13:14] LABS: Erythrocyte Sedimentation Rate 53 mm/hr (0-30)
[2021-07-03 13:44] LABS: Microscopic,Cath URINE MICROSCOPIC (MICROSCOPIC)
[2021-07-03 13:45] LABS: Appearance,Urine/Cath CLEAR (Clear); Bilirubin,Cath Negative (Negative); Blood, Urine/Cath TRACE-I (Negative); Color,Urine/Cath YELLOW (Yellow); Glucose,Urine/Cath (UA) Negative (Negative); Ketones,Urine/Cath Negative (Negative); Leukocyte Esterase,Cath Negative (Negative); Nitrate,Cath Negative (Negative); PH,Urine/Cath 5.5 (5.0-8.5); Protein,Urine/Cath 2+ (Negative); Specific Gravity, Urine/Cath >= 1.030 (1.005-1.030); Urobilinogen,Cath 0.2 EU/dl (0.2)
[2021-07-03 14:11] LABS: Squamous Epithelial Ur./Cath Occasional #/hpf (0-5)
[2021-07-03 14:12] LABS: WBC,Urine/Cath Occasional #/hpf (0-3)
--- NOTE | 2021-07-03 14:55 | PC.NURSE ---
notified care management of admission, bharathi padron
--- NOTE | 2021-07-03 15:17 | PC.NURSE ---
warehouse sorter states pt will be assigned to room 202 on second floor. States room is not ready yet but will be soon.
--- NOTE | 2021-07-03 15:43 | PC.NURSE ---
report called to rhianna chaney rn
--- NOTE | 2021-07-03 15:48 | PC.NURSE ---
MICHELLE Obregon taking patient up to 2nd floor by stretchmarc
--- NOTE | 2021-07-03 15:55 | PC.NURSE ---
ZYVOX 600 MG INFUSION INITIATED UPON ARRIVAL TO FLOOR. WAS NOT ABLE TO SCAN MEDICATION ON MAY.
--- NOTE | 2021-07-03 17:06 | PC.NURSE ---
SEPSIS BOLUS WAS INITIATED IN ER AND FINISHED UPON ARRIVAL TO FLOOR
[2021-07-03 17:58] LABS: POC Glucose,Bedside 124 (70-110)
--- NOTE | 2021-07-03 18:21 | HMH.HP ---
*Admission Date: 07/03/21 *Chief complaint: fever *History of present illness: 51 yr old female presented to ed via ambulance from [facility]. Per ed note EMS called because patient was lethargic and O2 saturation was in the 60s. Patient states she felt fine last night and woke up this am with leg pain and burning. Pt complains of pain in her right hand which is noted to be swollen, that started today also. Denies cough, chest pain, abdominal pain and vomiting. States she is having difficulty starting urinary stream. Pt had a recent admission for cellulitis right lower extremity with podiatric procedures, discharged with PICC line and receiving vancomycin and clindamycin. Pt admitted for further work up and eval. [facility] History I have reviewed the patient's past medical history: Yes Medical History: Reports:: Anxiety, Depression, Diabetes Mellitus Type 2, Gastroesophageal Reflux Disease(GERD), Hyperlipidemia, Hypertension, Migraine Denies:: Cancer, Diabetes Mellitus Type 1, MRSA, Seizures *Have you ever received a pneumonia vaccine?: Yes *Have you received a flu vaccine this season?: Yes Other Medical History: Reports: Arthritis Other Surgeries: Yes: Cholecystectomy, , Hysterectomy-Total Amputation: No Fractures: No - *Social History Smoking Status: Smoker, status unknown Tobacco Type: cigarettes # Packs/Day (cigarettes): 1 Alcohol Intake: never Substance Use Type: former substance user *Occupational Status:: disabled *Travel in the last 8 weeks: None - Psychiatric History Pschychiatric History:: Reports:: Anxiety, Depression Family Hx:: No significant family history Review of Systems - Review of Systems Review of systems:: pertinent systems reviewed and negative unless documented below - Constitutional Denies body ache(s) - Eyes Denies blurry vision - ENT Denies bleeding gums - *Cardiovascular Reports shortness of breath with activity, Reports leg swelling, Denies chest pain at rest - *Respiratory Reports shortness of breath, Reports shortness of breath with activity - *Gastrointestinal Denies abdominal pain - *Genitourinary Denies urinary incontinence - *Musculoskeletal Denies joint pain - Integumentary/Breasts Reports wounds - *Neurologic Denies dizziness - Psychiatric Denies anxiety - Endocrine Denies excessive sweating - Hematologic/Lymphatic Denies easy bruising - Allergic/Immunologic Denies itchy eyes Meds Home Medications Medication Instructions Recorded Confirmed Type hydroxyzine pamoate 50 mg capsule 50 mg PO TIDP PRN cap 03/25/21 07/03/21 History paroxetine HCl 30 mg tablet 30 mg PO DAILY tab 03/25/21 07/03/21 History quetiapine 400 mg tablet,extended 400 mg PO BID tab 03/25/21 07/03/21 History release 24 hr Acetaminophen [Acetaminophen 325mg 650 mg PO Q8HP PRN 06/10/21 07/03/21 History tab] Ibuprofen [Ibuprofen 600mg 600 mg PO Q6HP PRN 06/10/21 07/03/21 History Tablet] Metformin HCl 500 mg PO HS 06/10/21 07/03/21 History ondansetron HCL [Ondansetron 4mg 4 mg PO QIDP PRN 06/10/21 07/03/21 History tab*] gabapentin 300 mg capsule 300 mg PO TID #90 cap 06/19/21 07/03/21 Rx oxycodone 5 mg tablet 5 mg PO Q6HP PRN #120 tab 06/19/21 07/03/21 Rx collagenase clostridium histo. 250 1 applic TOPICAL QDAY #30 g 06/25/21 07/03/21 Rx unit/gram topical ointment Clindamycin in 0.9 % Sod Chlor 300 mg IV TID 07/03/21 07/03/21 History [Clindamycin 300 mg/50 ml-Ns] EPINEPHrine [Epipen] 0.3 mg IJ DAILY PRN 07/03/21 07/03/21 History Potassium Chloride [Klor-con 20 20 meq PO BID 07/03/21 07/03/21 History mEq tablet] Vancomycin HCl [Vancomycin 1000mg 2,250 mg IV Q12H 07/03/21 07/03/21 History Vial] Allergies Allergy/AdvReac Type Severity Reaction Status Date / Time nut - unspecified Allergy Severe Swelling Verified 06/25/21 09:42 of Lip/Tongue/Throat codeine Allergy Unknown Unknown Verified 06/25/21 09:42
[2021-07-03 21:05] LABS: POC Glucose,Bedside 153 (70-110)
[2021-07-04] VITALS (9 sets, daily range): BP systolic 106–158; BP diastolic 53–79; PULSE 72–121; RESP 16–26; TEMP 36.8–38.9; O2SAT 90–94; BMI 43.4; BMI 43.2
--- NOTE | 2021-07-04 05:50 | PC.NURSE ---
Pt alert and able to make needs known. Stated that she was very tired at the beginning of the shift and went to sleep. Slept most of the night. Reported that she wanted a nicotine patch. Ordered and placed. Picc intact and flushes without issues. Guerrero intact and draining to gravity. No pain medication requested.
[2021-07-04 06:42] LABS: POC Glucose,Bedside 99 (70-110)
--- NOTE | 2021-07-04 06:56 | P.CONPHA_ITS ---
[facility] Pharmacy VTE Monitoring - Patient Demographics Admission date: 07/03/21 Report Date: 07/04/21 Time: 06:57 Allergies/Adverse Reactions: Patient Allergies nut - unspecified Allergy (Severe, Verified 06/25/21 09:42) Swelling of Lip/Tongue/Throat codeine Allergy (Unknown, Verified 06/25/21 09:42) Unknown allergy reaction Penicillins Allergy (Unknown, Verified 06/25/21 09:42) Unknown allergy reaction Height: 1.85 m Weight: 148.914 kg Patient Problems: Current Active Problems Cellulitis of right leg (Acute) Type 2 diabetes mellitus with diabetic nephropathy, without long-term current use of insulin (Acute) Cutaneous abscess of right ankle (Acute) Sepsis (Acute) Multiorgan failure (Acute) Acute renal failure (Acute) Respiratory failure with hypoxia (Acute) - VTE Risk Labs: VTE Related Lab Results Hgb 9.1 g/dL (12.2-16.2) L 07/03/21 12:23 Hct 28.6 % (37.0-47.0) L 07/03/21 12:23 Plt Count 90 K/mm3 (142-424) L 07/03/21 12:23 BUN 21 mg/dl (7-17) H 07/03/21 12:23 Creatinine 3.70 mg/dl (0.52-1.04) H 07/03/21 12:23 Estimated Creat Clear 39 mL/min (50-200) 07/03/21 12:23 VTE Score: 3 VTE Risk Level: Low Risk - Prophylaxis VTE Prophylaxis Ordered?: Yes Types of VTE Prophylaxis: TEDS Knee High Location of Applied Device: Bilateral Lower Extremeties
[2021-07-04 07:35] LABS: Chloride 104 mmol/L (98-107)
[2021-07-04 07:36] LABS: Potassium 5.2 mmoL/L (3.5-5.1); Sodium 134 mmol/L (136-145)
[2021-07-04 07:38] LABS: Blood Urea Nitrogen 31 mg/dl (7-17); Creatinine Clearance Estimated 15 mL/min (50-200); Estimated Glomerular Filt Rate 9 ml/min (>60); GFR (African American) 11 ML/MIN (>60)
[2021-07-04 07:39] LABS: Anion Gap 12.2 mEq/L (5-15); Calcium 6.5 mg/dl (8.4-10.2); Carbon Dioxide 23 mmol/L (22.0-30.0); Glucose 88 mg/dl (74-100)
--- NOTE | 2021-07-04 07:46 | HMH.PHAINT ---
Home medication list has been verified using the MAR provided by the facility that the patient was staying at.
--- NOTE | 2021-07-04 08:06 | XR_ITS ---
FINAL REPORT CLINICAL HISTORY: Cellulitis of right ankle COMPARISON: June 12, 2021 FINDINGS: RIGHT ANKLE: Three views of the right ankle were obtained. There is healed fracture deformity of the fibular diaphysis. There is a moderate plantar spur. There are hypertrophic changes at the anterior and posterior margins of the mortise. There is prominent soft tissue swelling about the ankle. IMPRESSION: Healed fracture as above with prominent soft tissue swelling. Reviewed, Interpreted and Dictated by John Irving MD Transcribed by Juan Grissom Authenticated by John Irving MD on 07/04/2021 09:29:47 AM [facility]
--- NOTE | 2021-07-04 08:06 | PC.NURSE ---
07:50 - Critical creatinine of 4.96 received from [place] [facility] staff. Lab value read back and verified, and pt. verified with name and date. 07:58 - Spoke with Dr. Street regarding critical creatinine of 4.9. v/u.
--- NOTE | 2021-07-04 08:41 | CT_ITS ---
FINAL REPORT TECHNIQUE: Thin section axial CT images with coronal and sagittal reformats were performed. This study was performed with techniques to keep radiation doses as low as reasonably achievable (ALARA). Individualized dose reduction techniques using automated exposure control or adjustment of mA and/or kV according to the patient''s size were employed. CLINICAL HISTORY: rt lower leg cellulitis FINDINGS: There is significant subcutaneous soft tissue edema consistent with clinical history of cellulitis. Skin thickening is evident within the distal portion of the lower leg. There is soft tissue ulceration overlying the distal fibula. No underlying bony erosion is identified. There is healed fracture deformity of the distal fibular diaphysis. There is mild narrowing of the mortise with osteophyte formation. There are hypertrophic changes of the intertarsal joints. There are moderately advanced changes of osteoarthritis of the medial compartment and patellofemoral joint spaces of the knee. IMPRESSION: Diffuse cellulitis. Soft tissue ulceration overlying the distal fibula. Hypertrophic changes as detailed above. Reviewed, Interpreted and Dictated by John Irving MD Transcribed by Ena Rob Authenticated by John Irving MD on 07/04/2021 10:30:[address] [facility]
--- NOTE | 2021-07-04 09:11 | HMH.ORTHOCON ---
*Admission Date: 07/03/21 <Viviane Arguello 07/04/21 09:14> *Reason for consult:: Abscess to right ankle <MohitleandroAzalea vincentViviane 07/04/21 09:14> *History of present illness: This is a 51 year old diabetic female well known to the podiatry team who was admitted 07/03/21 for fever and difficulty starting urinary stream. PCP team consulted podiatry for continued ongoing wound management of her right lower leg wounds, right calf, right medial ankle, right interior ankle, and right lateral ankle.Patient currently at [facility], they were doing daily wounds dressing changes. Patient denies new issues with right lower leg, ankle and foot except having pain 5/10. There is no drainage noted to wounds. We will review labs, obtain stat right ankle x-ray and CT without right lower leg ankle and calf. We will intervene according to labs, x-ray and ct results. Patient to remain NPO. <MohitleandromelisaViviane 07/04/21 12:37> [facility] History Medical History: Reports:: Anxiety, Depression, Diabetes Mellitus Type 2, Gastroesophageal Reflux Disease(GERD), Hyperlipidemia, Hypertension, Migraine Denies:: Cancer, Diabetes Mellitus Type 1, MRSA, Seizures <SelamAzalea ariasher 07/04/21 09:14> *Have you ever received a pneumonia vaccine?: Yes <MohitnettieViviane 07/04/21 09:14> *Have you received a flu vaccine this season?: Yes <SelamViviane arias 07/04/21 09:14> Other Medical History: Reports: Arthritis <Azalea Arguelloher 07/04/21 09:14> Other Surgeries: Yes: Cholecystectomy, , Hysterectomy-Total <SelamViviane arias 07/04/21 09:14> Amputation: No <Azalea Arguelloher 07/04/21 09:14> Fractures: No <JosViviane 07/04/21 09:14> - *Social History Smoking Status: Smoker, status unknown <Viviane Arguello 07/04/21 09:14> Tobacco Type: cigarettes <Viivane Arguello 07/04/21 09:14> # Packs/Day (cigarettes): 1 <[facility] 07/04/21 09:14> Alcohol Intake: never [facility] 07/04/21 09:14> Substance Use Type: former substance user <[facility] 07/04/21 09:14> *Occupational Status:: disabled <[facility] 07/04/21 09:14> *Travel in the last 8 weeks: None <[facility] 07/04/21 09:14> - Psychiatric History Pschychiatric History:: Reports:: Anxiety, Depression <[facility] 07/04/21 09:14> Family Hx:: No significant family history <[facility] 07/04/21 09:14> Review of Systems - *Neurologic Denies dizziness <[facility] 07/04/21 09:14> Meds Home Medications Medication Instructions Recorded Confirmed Type hydroxyzine pamoate 50 mg capsule 50 mg PO BIDP PRN cap 03/25/21 07/04/21 History paroxetine HCl 30 mg tablet 30 mg PO DAILY tab 03/25/21 07/03/21 History quetiapine 400 mg tablet,extended 400 mg PO BID tab 03/25/21 07/03/21 History release 24 hr Acetaminophen [Acetaminophen 325mg 650 mg PO Q8HP PRN 06/10/21 07/03/21 History tab] Ibuprofen [Ibuprofen 600mg 600 mg PO Q6HP PRN 06/10/21 07/03/21 History Tablet] Metformin HCl 500 mg PO HS 06/10/21 07/03/21 History ondansetron HCL [Ondansetron 4mg 4 mg PO QIDP PRN 06/10/21 07/03/21 History tab*] gabapentin 300 mg capsule 300 mg PO TID #90 cap 06/19/21 07/03/21 Rx oxycodone 5 mg tablet 5 mg PO Q6HP PRN #120 tab 06/19/21 07/03/21 Rx EPINEPHrine [Epipen] 0.3 mg IJ DAILYP PRN 07/03/21 07/04/21 History Vancomycin HCl [Vancomycin 1000mg 2,250 mg IV Q12H 07/03/21 07/03/21 History Vial] Ascorbic Acid [Vitamin C] 1,000 mg PO DAILY 07/04/21 07/04/21 History Clindamycin Phosphate/D5w 300 mg IV TID 07/04/21 07/04/21 History [Clindamycin 300 mg/50 ml-D5w] Collagenase Clostridium Hist. 1 applic TP DAILY 07/04/21 07/04/21 History [Santyl] Potassium Chloride [K-Tab ER 20 20 meq PO BID 07/04/21 07/04/21 History mEq] <Jordyn Eubanks - 07/04/21 13:21> Allergies Allergy/AdvReac Type Severity Reaction Status Date / Time nut - unspecified Allergy Severe Swelling Verified 06/25/21 09:42 of Ne/Luke
--- NOTE | 2021-07-04 09:43 | HMH.ACPN2 ---
Internal Medicine - PN: Subj *Date: 07/04/21 *Time: 12:38 Interval history: 51-year-old female patient sitting up in bed, reports shortness of breath during the night. Current oxygenation 91% on Ventimask. 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 On admission creatinine 3.7 is elevated to 4.9 this morning she is on IV fluids. Discussed medications with pharmacy and have changed antibiotics Exam Vital signs and Labs for Last 24 Hours: Temp Pulse Resp BP Pulse Ox 100.1 F H 116 H 24 146/70 H 90 L 07/04/21 08:00 07/04/21 08:00 07/04/21 08:00 07/04/21 08:00 07/04/21 08:00 Laboratory Results - last 24 hr 07/03/21 12:23: WBC 3.9 L, RBC 3.08 L, Hgb 9.1 L, Hct 28.6 L, MCV 93.0, MCH 29.6, MCHC 31.9, RDW 16.1, Plt Count 90 L, MPV 11.3 H, Neut % (Auto) 65.4, Lymph % (Auto) 20.6, [place] % (Auto) 6.2, Eos % (Auto) 7.2, Baso % (Auto) 0.6, Neut # (Auto) 2.5, Lymph # (Auto) 0.8, [place] # (Auto) 0.2, Eos # (Auto) 0.3, Baso # (Auto) 0.0 07/03/21 12:23: Sodium 133 L, Potassium 4.5, Chloride 103, Carbon Dioxide 23, Anion Gap 11.5, BUN 21 H, Creatinine 3.70 H, Estimated Creat Clear 39, Estimated GFR 13 L*, Est GFR ( Amer) 16 L*, Glucose 112 H, Calcium 7.2 L, Total Bilirubin 0.4, AST 66 H, ALT 33, Alkaline Phosphatase 98, C-Reactive Protein 195.6 H, Total Protein 6.1 L D, Albumin 3.0 L, Globulin 3.1, Albumin/Globulin Ratio 1.0 L 07/03/21 12:23: ESR 53 H 07/03/21 12:23: Procalcitonin 2.08 H 07/03/21 12:33: Lactate 0.6 L 07/03/21 12:33: SARS-CoV-2 (PCR) Not detected, Influenza A Untype (PCR) Not detected, Influenza Type B (PCR) Not detected 07/03/21 12:57: Specimen Source Left radial, O2 % 40% vm, ABG pH 7.33 L, ABG pCO2 44.5, ABG pO2 60.5 L, ABG HCO3 22.8, ABG Total CO2 24.1, ABG O2 Saturation 91, ABG Base Excess -3.2 L, Spike Test Acceptable 07/03/21 13:34: Urine Color Yellow, Urine Appearance Clear, Urine pH 5.5, Ur Specific [place] >= 1.030, Urine Protein 2+, Urine Glucose (UA) Negative, Urine Ketones Negative, Urine Blood Trace-i, Urine Nitrate Negative, Urine Bilirubin Negative, Urine Urobilinogen 0.2, Ur Leukocyte Esterase Negative, Urine RBC 3-5, Urine WBC Occasional, Ur Squamous Epith Cells Occasional, Urine Bacteria None 07/03/21 17:47: POC Glucose 124 H 07/03/21 20:55: POC Glucose 153 H 07/04/21 06:22: POC Glucose 99 07/04/21 06:38: Sodium 134 L, Potassium 5.2 H, Chloride 104, Carbon Dioxide 23, Anion Gap 12.2, BUN 31 H D, Creatinine 4.90 H D, Estimated Creat Clear 15, Estimated GFR 9 L*, Est GFR ( Amer) 11 L* D, Glucose 88 D, Calcium 6.5 L I & O for Last 24 hours: Intake & Output 07/01/21 07/02/21 07/03/21 07/04/21 23:59 23:59 23:59 23:59 Output Total 200 / 200 Balance -200 / -200 Weight 319 lb 7 oz 328 lb 4.8 oz - Constitutional mild distress, obese, chronically ill appearing - *Routine HEENT Exam Head: Present: normocephalic Eye: Present: EOMI ENT: Present: mucous membranes moist - *Routine Neck Exam Present: trachea midline. Absent: tracheal deviation - *Routine Respiratory Exam Present: CTA bilaterally. Absent: accessory muscle use - *Routine Cardiovascular Exam Present: RRR - *Routine Abdominal Exam Present: soft, normoactive bowel sounds. Absent: tenderness, firm - *Routine Extremities Exam Present: edema, pulses intact. Absent: cyanosis Comments: Pedal pulses diminished bilaterally - *Routine Skin Exam Present: dry, wounds. Absent: intact, cyanosis Comments: Podiatry debriding wound right lower extremity - *Routine Neurological Exam Present: alert, oriented X3. Absent: motor deficit - Routine Psychiatric Exam Present: unable to assess Assessment and Plan (1) Respiratory failure with hypoxia Status: Acute Qualifiers: Chronicity: acute Qualified Code(s): J96.01 - Acute respiratory failure with hypoxia Category: Medical Code(s): J96.91 - Respiratory failure, unspecified with hypoxia (2) Sepsis Status: Acute Qualif
--- NOTE | 2021-07-04 10:08 | SW/DCPLANNER ---
This patient currently resides at [facility]. I spoke with Loren regarding this patient: ICF level of care. I will continue to follow up with Loren until medically stable for discharge. Updated information has been faxed.
[2021-07-04 10:24] LABS: Hematocrit 27.6 % (37.0-47.0); Hemoglobin 8.6 g/dL (12.2-16.2); Mean Corpuscular HGB Conc 31.2 g/dL (31.8-35.4); Mean Corpuscular Hemoglobin 28.6 pg (27.0-31.2); Mean Corpuscular Volume 91.7 fl (81-99); Platelet Count 62 K/mm3 (142-424); Red Blood Count 3.01 M/mm3 (4.20-5.40); Red Cell Distribution Width 16.2 % (11.5-17.5); White Blood Count 3.7 K/mm3 (4.8-10.8)
[2021-07-04 10:25] LABS: Mean Platelet Volume 12.2 fl (7.4-10.4)
--- NOTE | 2021-07-04 10:39 | US_ITS ---
FINAL REPORT TECHNIQUE: Sonographic images were obtained of the retroperitoneum. CLINICAL HISTORY: SEUN FINDINGS: The right kidney measures 13.1 cm. The left kidney measures 12.9 cm. There is no evidence of renal mass or hydronephrosis. The spleen measures 17.3 cm. IMPRESSION: Moderate splenomegaly. No renal mass or hydronephrosis. Reviewed, Interpreted and Dictated by John Irving MD Transcribed by Juan Grissom Authenticated by John Irving MD on 07/04/2021 12:12:34 PM [facility]
[2021-07-04 11:58] LABS: POC Glucose,Bedside 99 (70-110)
--- NOTE | 2021-07-04 13:14 | CA_ITS ---
FINAL REPORT TECHNIQUE: Bilateral lower extremity venous duplex was performed with augmentation and compression. CLINICAL HISTORY: Edema, pain, morbid obesity, soa, smoker FINDINGS: Proper flow is seen throughout the deep venous systems bilaterally. There is no evidence of deep venous thrombosis. IMPRESSION: No evidence of deep venous thrombosis. Reviewed, Interpreted and Dictated by John Irving MD Transcribed by Ena Rob Authenticated by John Irving MD on 07/04/2021 03:11:24 PM [facility]
[2021-07-04 13:24] LABS: Basophils % 1.1 % (0.1-2.0); Lymphocytes % 15.8 % (10-50); Monocytes % 6.4 % (1.7-9.3); Neutrophils % 63.9 % (37.0-80.0)
[2021-07-04 13:25] LABS: Eosinophils # 0.5 K/mm3 (0.0-0.4); Lymphocytes # 0.6 K/mm3 (0.7-4.5); Monocytes # 0.2 K/mm3 (0.1-1.0); Neutrophils # 2.4 K/mm3 (1.8-7.8)
--- NOTE | 2021-07-04 14:08 | HMH.PTEV ---
Physical Therapy Evaluation Rehab PT IP Evaluation Start: 07/04/21 10:40 Freq: .once Status: Active Protocol: Document 07/04/21 14:00 DL (Rec: 07/04/21 14:08 DL [id number]) Subjective/History History History 51 yr old female presented to ed via ambulance from [facility]. Per ed note EMS called because patient was lethargic and O2 saturation was in the 60s. Patient states she felt fine last night and woke up this am with leg pain and burning. Pt complains of pain in her right hand which is noted to be swollen, that started today also. Denies cough, chest pain, abdominal pain and vomiting. States she is having difficulty starting urinary stream. Pt had a recent admission for cellulitis right lower extremity with podiatric procedures, discharged with PICC line and receiving vancomycin and clindamycin. Pt admitted for further work up and eval. Subjective Subjective no complaints from pt - pt reports she would like to get OOB Rehab PT IP Eval Objective Appearance Patient Behavior Cooperative Patient Orientation Place,Name,Birthday,Year Difficulty following instructions none Speech Pattern Appropriate Ambulation Patient Able to Ambulate Yes Ambulation Observation IP General Gait Pattern Observation Ataxic Gait Ambulation Distance (feet) 3 Ambulation Assistive Device Rolling Walker Ambulation Ability Supervision/Stand by,Contact Guard/Hand Hold Balance Ability to Arise Able, uses arms to help Sitting Balance Steady, safe Standing Balance Steady, wide stance Dynamic Sitting Balance Ability Good Dynamic Standing Balance Ability Fair Transfers Bed Transfer Ability Independent,Supervision/Stand by Chair Transfer Ability Independent,Supervision/Stand by Sit to Stand Bed Transfer Ability Contact Guard/Hand Hold Sit to Stand Chair Transfer Ability
--- NOTE | 2021-07-04 15:11 | PC.NURSE ---
15:00 - O2 noted to be at 62% on monitor. Monitor probe coming off, new one in place. O2 up to 74%. 15:05 - Respiratory called, and into room. O2 up to 87%. 15:10 - Repisratory in room giving breathing treatment.
--- NOTE | 2021-07-04 16:14 | PC.NURSE ---
Routine reassessment completed. Audible wheezes noted. Pt. has removed venturi mask. O2 sats noted to be down to 85%.Venturi Mask back in place, O2 sats back up to 91%. Pt. reports pain in groin area and legs. F/C noted to have small amount of dark yellow cloudy urine in it. 200ML noted in bag from 7am to now. No further acute changes noted from previous assessment. Pt. denies needs, will continue to monitor.
--- NOTE | 2021-07-04 16:17 | HMH.OTEV ---
OT Inpatient Evaluation Rehab OT IP Evaluation Start: 07/04/21 10:41 Freq: ONCE Status: Complete Protocol: Document 07/04/21 16:04 ALEXANDREA (Rec: 07/04/21 16:17 [facility] [id number]) Rehab OT IP Assessment Subjective History Pt oriented x 3 on arrival. Pt agreeable to engage in therapy evaluation on arrival. Pt was admitted via ED on due to fever, sepsis, cellulitis, and respiratory distress. Pt was living at [facility] prior to hospital admission. Pt claims she was independnet with ADLs such as dressing, bathing, and feeding. Pt was able to walk and functionally transfer from surface to surface with rolling walker. Pt was dependent upon staff for completion of IADLS. The following information was copied from history and physical report: 51 yr old female presented to ed via ambulance from [facility]. Per ed note EMS called because patient was lethargic and O2 saturation was in the 60s. Patient states she felt fine last night and woke up this am with leg pain and burning. Pt complains of pain in her right hand which is noted to be swollen, that started today also. Denies cough, chest pain, abdominal pain and vomiting. States she is having difficulty starting urinary stream. Pt had a recent admission for cellulitis right lower extremity with podiatric procedures, discharged with PICC line and receiving vancomycin and clindamycin. Pt admitted for further work up and eval. Subjective I need to get ready to go back.
--- NOTE | 2021-07-04 17:40 | PC.NURSE ---
RESP CARE NOTE: Pt placed on High flow nasal cannula per RN request to eat dinner. Will continue to monitor patient.
[2021-07-04 18:25] LABS: POC Glucose,Bedside 147 (70-110)
[2021-07-04 21:04] LABS: POC Glucose,Bedside 131 (70-110)
[2021-07-04 21:20] LABS: Chloride 104 mmol/L (98-107); Potassium 4.6 mmoL/L (3.5-5.1); Sodium 134 mmol/L (136-145)
[2021-07-04 21:23] LABS: Alanine Aminotransferase 54 U/L (12-78); Albumin Level 2.8 g/dl (3.5-5.0); Albumin/Globulin Ratio 0.9 (1.1-1.8); Alkaline Phosphatase 345 U/L (38-126); Anion Gap 11.6 mEq/L (5-15); Aspartate Amino Transferase 106 U/L (14-36); Bilirubin,Total 1.2 mg/dl (0.2-1.3); Blood Urea Nitrogen 35 mg/dl (7-17); Carbon Dioxide 23 mmol/L (22.0-30.0); Creatinine Clearance Estimated 11 mL/min (50-200); Estimated Glomerular Filt Rate 6 ml/min (>60); GFR (African American) 8 ML/MIN (>60); Globulin 3.1 g/dL (1.3-3.2); Total Protein,Serum 5.9 g/dl (6.3-8.2)
[2021-07-04 21:24] LABS: Calcium 6.4 mg/dl (8.4-10.2); Glucose 120 mg/dl (74-100)
[2021-07-05] VITALS (11 sets, daily range): BP systolic 88–160; BP diastolic 59–87; PULSE 77–117; RESP 18–22; TEMP 36.4–37.4; O2SAT 92–100
[2021-07-05 06:32] LABS: POC Glucose,Bedside 93 (70-110)
[2021-07-05 07:04] LABS: Chloride 105 mmol/L (98-107); Sodium 136 mmol/L (136-145)
[2021-07-05 07:05] LABS: Basophils % 0.4 % (0.1-2.0); Eosinophils # 0.3 K/mm3 (0.0-0.4); Eosinophils % 10.9 % (0.1-12.0); Hematocrit 30.1 % (37.0-47.0); Hemoglobin 9.7 g/dL (12.2-16.2); Lymphocytes # 0.5 K/mm3 (0.7-4.5); Lymphocytes % 18.1 % (10-50); Mean Corpuscular HGB Conc 32.2 g/dL (31.8-35.4); Mean Corpuscular Hemoglobin 29.9 pg (27.0-31.2); Mean Corpuscular Volume 92.8 fl (81-99); Mean Platelet Volume 12.6 fl (7.4-10.4); Monocytes # 0.1 K/mm3 (0.1-1.0); Monocytes % 3.7 % (1.7-9.3); Neutrophils % 66.8 % (37.0-80.0); Platelet Count 75 K/mm3 (142-424); Potassium 4.6 mmoL/L (3.5-5.1); Red Blood Count 3.24 M/mm3 (4.20-5.40); Red Cell Distribution Width 16.4 % (11.5-17.5)
[2021-07-05 07:07] LABS: Alanine Aminotransferase 57 U/L (12-78); Alkaline Phosphatase 432 U/L (38-126); Anion Gap 13.6 mEq/L (5-15); Aspartate Amino Transferase 112 U/L (14-36); Bilirubin,Total 1.6 mg/dl (0.2-1.3); Blood Urea Nitrogen 40 mg/dl (7-17); Carbon Dioxide 22 mmol/L (22.0-30.0); Creatinine Clearance Estimated 11 mL/min (50-200); Estimated Glomerular Filt Rate 6 ml/min (>60); GFR (African American) 7 ML/MIN (>60); Glucose 93 mg/dl (74-100)
[2021-07-05 07:08] LABS: Albumin Level 2.7 g/dl (3.5-5.0); Albumin/Globulin Ratio 0.9 (1.1-1.8); Globulin 3.1 g/dL (1.3-3.2); Total Protein,Serum 5.8 g/dl (6.3-8.2)
--- NOTE | 2021-07-05 08:08 | CT_ITS ---
FINAL REPORT TECHNIQUE: Axial images through the abdomen and pelvis were performed without contrast. This study was performed with techniques to keep radiation doses as low as reasonably achievable, (ALARA). Individualized dose reduction techniques using automated exposure control or adjustment of mA and/or kV according to the patient's size were employed. CLINICAL HISTORY: possible obstruction FINDINGS: Abdomen: There are small bilateral pleural effusions. There is bibasilar consolidation with overlying atelectasis. The liver parenchyma is homogeneous. The liver is enlarged up to 22 cm. The spleen is enlarged up to 18 cm. The gallbladder is absent. The pancreas and adrenal glands are unremarkable. There are multiple small bilateral nonobstructing renal stones, right greater than left. There appears to be mucosal edema in the 2nd portion of the duodenum with stranding and fluid in the right anterior para renal fascia extending into the pelvis. There are para-aortic lymph nodes measuring up to 2.4 cm , more numerous than expected. There is no evidence of bowel obstruction. Pelvis: The urinary bladder is decompressed around a Guerrero catheter. The appendix is not visualized. There is a small amount of free fluid in the pelvis. IMPRESSION: Inflammatory reaction involving the 2nd portion the duodenum with fluid. Cannot exclude peptic ulcer disease. No evidence of bowel obstruction. Multiple bilateral nonobstructing renal stones. Small pleural effusions and bibasilar consolidation. Para-aortic adenopathy of uncertain significance may be reactive or neoplastic. Hepatosplenomegaly. Reviewed, Interpreted and Dictated by John Irving MD Transcribed by Juan Grissom Authenticated by John Irving MD on 07/05/2021 11:58:44 AM [facility]
[2021-07-05 08:27] LABS: Vancomycin,Trough 32.7 ug/mL (5.0-10.0)
[2021-07-05 09:04] LABS: Creatine Kinase 881 U/L (30-135)
--- NOTE | 2021-07-05 10:46 | HMH.ORTHPN ---
Subjective Date: 07/05/21 Time: 08:30 Principal diagnosis: Abscess to right ankle Interval history: Patient resting in bed. No acute distress noted. Denies pain to right lower leg. Edema and cellulitis of right leg improving. Wounds dressings removed, no new SOI or drainage noted. We will re-apply dressings to wounds as ordered. PN: Obj Ex Vital signs: Temp Pulse Resp BP Pulse Ox 98.1 F 103 H 18 150/84 H 96 07/05/21 07:40 07/05/21 07:40 07/05/21 07:40 07/05/21 07:40 07/05/21 07:40 - Constitutional no acute distress - Routine HEENT Exam Head: Present: normocephalic Eye: Present: EOMI, PERRL ENT: Present: mucous membranes moist - Routine Neck Exam Present: supple - Routine Respiratory Exam Absent: respiratory distress - Routine Cardiovascular Exam Present: RRR - Routine Abdominal Exam Present: soft - Routine Extremities Exam Present: edema, pulses intact (decreased), tenderness (rigth foot and ankle) - Detailed Lower Extremity Exam Upper leg: Right: erythema Lower leg: Right swelling, Right tenderness, Right wound, Right erythema Ankle: Right erythema, Right swelling, Right tenderness, Right wound, Right pain with passive ROM Foot/Toes: Right erythema, Right swelling, Right tenderness Leg image: 1 - Right leg with erythema noted from thigh to knee and behind right calf. All wounds are stable. Cellulitis and edema continue to improve. All wounds cleansed with saline, and sharply debrided with 15 blade. Post debridement wound: right lateral ankle approx 5.2 x 4.1 x 0.3 cm skin into subq into/involving deep fascia, 20 % brown eschar, and 40% granular, and 40 % yellow wound base. Right calf dried scab: 5.0 x 3.0 x 0.0 cm skin/involving subq, 100 % granular. right medial ankle wound: thru skin into subq, 2.0 x 1.0 x 0.0. Sutures to medial ankle and lateral foot and right hallux were removed yesterday, sites remains intact. There is no purulence, malodor or drainage noted. Santyl applied to right lateral wound. Silver Ag+ applied to right calf and reight medial ankle wounds. - Routine Skin Exam Present: erythema, wounds - Routine Neurological Exam Present: oriented X3 - Urinary Catheter Management Guerrero Cath placed during this visit: no Progress Note: A&P (1) Respiratory failure with hypoxia Status: Acute (2) Sepsis Status: Acute (3) Cellulitis of right leg Start date: 07/05/21 Start time: 08:30 Status: Acute (4) Cutaneous abscess of right ankle Start date: 07/05/21 Start time: 08:30 Status: Acute (5) Type 2 diabetes mellitus with diabetic nephropathy, without long-term current use of insulin Start date: 07/05/21 Start time: 08:30 Status: Acute (6) Cellulitis of right thigh Start date: 07/05/21 Start time: 08:30 Status: Acute (7) Right calf pain Start date: 07/05/21 Start time: 08:30 Status: Acute Assessment and Plan for All Diagnoses:: Laboratory Tests 07/05/21 07/05/21 06:49 06:49 WBC 3.0 L BUN 40 H Creatinine 7.00 H Estimated GFR 6 L* Patient seen and evaluated by DAVID Hawkins dsg removed, skin cleaned, no purulence expressed. -All wounds were sharply debrided. See wound note. -Santyl applied to lateral ankle wound. Silver applied to right medial ankle, calf wounds, gauze, DSD (kerlix, lizabeth wrap, optifoam or bandaid) applied. -Nursing to do daily wounds dressing changes. -PICC Line to left upper arm for IV antibiotic. -PCP to manage IV antibiotic while inpatient. -Follow up with podiatry post discharge as previously indicated. SNF Orders ([place]): -Maintain dressing clean dry and intact to right ankle and back of proximal right calf, reinforce as necessary. -Daily dressing changes: santyl to right lateral ankle wound. Silver Ag+ to right medial ankle then apply dry gauze, DSD (kerlix, lizabeth wrap) to foot. -Apply silv
[2021-07-05 11:16] LABS: POC Glucose,Bedside 91 (70-110)
--- NOTE | 2021-07-05 11:23 | HMH.DCSUM ---
General - General Admission date:: 07/03/21 Discharge date: 07/05/21 HPI HPI: 51 yr old female presented to ed via ambulance from [facility]. Per ed note EMS called because patient was lethargic and O2 saturation was in the 60s. Patient states she felt fine last night and woke up this am with leg pain and burning. Pt complains of pain in her right hand which is noted to be swollen, that started today also. Denies cough, chest pain, abdominal pain and vomiting. States she is having difficulty starting urinary stream. Pt had a recent admission for cellulitis right lower extremity with podiatric procedures, discharged with PICC line and receiving vancomycin and clindamycin. Pt admitted for further work up and eval. Hospital Course Hospital Course: Abnormal Lab Results 07/04/21 06:38: Lymph # (Auto) 0.6 L, Eos # (Auto) 0.5 H 07/04/21 18:17: POC Glucose 147 H 07/04/21 20:33: POC Glucose 131 H 07/04/21 20:55: Sodium 134 L, BUN 35 H, Creatinine 6.70 H D, Estimated GFR 6 L*, Est GFR ( Amer) 8 L* D, Glucose 120 H D, Calcium 6.4 L, AST 106 H D, Alkaline Phosphatase 345 H, Total Protein 5.9 L, Albumin 2.8 L, Albumin/Globulin Ratio 0.9 L 07/05/21 06:49: BUN 40 H, Creatinine 7.00 H, Estimated GFR 6 L*, Est GFR ( Amer) 7 L*, Calcium 6.0 L, Total Bilirubin 1.6 H, AST 112 H, Alkaline Phosphatase 432 H, Total Protein 5.8 L, Albumin 2.7 L, Albumin/Globulin Ratio 0.9 L 07/05/21 06:49: WBC 3.0 L, RBC 3.24 L, Hgb 9.7 L, Hct 30.1 L, Plt Count 75 L, MPV 12.6 H, Lymph # (Auto) 0.5 L 07/05/21 06:49: Vancomycin Trough 32.7 H 07/05/21 06:49: Total Creatine Kinase 881 H* -podiatry consult: Assessment and plan all Dx Assessment and Plan for all problems:: Patient initially seen and evaluated by NUCLEAR PLANT EQUIPMENT OPERATOR at bedside. Once all labs and imaging was obtained, I did review x-ray which was essentially negative. I did review the CT scan of the right lower extremity which showed no obvious osteomyelitis or abscess. IMPRESSION: Diffuse cellulitis. Soft tissue ulceration overlying the distal fibula. Hypertrophic changes as detailed above. -All sutures were removed (sutures x12) -Right lateral ankle wound was sharply excisionally debrided with forceps and scissors full thickness. Post debridement wound: ~5.2 x 4.1 x 0.3 cm skin into subq into/involving deep fascia, 20% brown eschar, 40% granular, and 40% yellow wound base. No purulence, malodor or drainage. Silver, optifoam applied. Plan: right ankle wounds are stable, no plans for podiatry surgery -discuss with PCP team: pt c/o pain to right calf, behind knee, thigh -has cellulitis to calf, thigh -recommend venous doppler to r/o DVT -if symptoms not improving, may consider CT thigh/knee to r/o abscess -continue daily Santyl DSD -continue IV abx: Clindamycin, IV Vanco <Jordyn Eubanks - 07/04/21 13:21> Date of Service: 07/04/21 Procedure(s): XR ankle RT min 3V. FINDINGS: RIGHT ANKLE: Three views of the right ankle were obtained. There is healed fracture deformity of the fibular diaphysis. There is a moderate plantar spur. There are hypertrophic changes at the anterior and posterior margins of the mortise.There is prominent soft tissue swelling about the ankle. IMPRESSION: Healed fracture as above with prominent soft tissue swelling. Date of Service: 07/04/21 Procedure(s): CT lower leg RT wo con. FINAL REPORT. TECHNIQUE: Thin section axial CT images with coronal and sagittal reformats were performed. This study was performed with techniques to keep radiation doses as low as reasonably achievable (ALARA). Individualized dose reduction techniques using automated exposure control or adjustment of mA and/or kV according to the patient''s size were employed. CLINICAL HISTORY: rt lower leg cellulitis. FINDINGS: There is significant subcutaneous soft tissue edema consistent with clinical history of cellulitis. Skin thickening is evident within the distal portion of the lower leg. There is soft tissue ulce
[2021-07-05 12:43] LABS: NT Pro Brain Natriuretic Pep. 5770 pg/mL (0-125)
--- NOTE | 2021-07-05 15:59 | PC.NURSE ---
PT IS RESTING IN BED. PT HAS BEEN VERY DROWSY THIS SHIFT BUT WILL AWAKEN EASILY TO VERBAL STIMULI. O2 SATURATION HAS MAINTAINED 92-97% ON 50% VENTI MASK. LUNG SOUNDS DIMINISHED. ABDOMEN SOFT/NON TENDER WITH HYPOACTIVE BOWEL SOUNDS. 3+ PITTING EDEMA WITH OPEN WOUNDS NOTED TO RLE (DRESSINGS INTACT). REPORT CALLED TO NURSE AT [facility]. AWAITING AMBULANCE TRANSPORT AT THIS TIME. WILL CONTINUE TO MONITOR.
[2021-07-05 16:37] LABS: POC Glucose,Bedside 139 (70-110)
[2021-07-06 01:17] LABS: POC Glucose,Bedside 99 (70-110)
== END 2021-07-05 20:24 | disposition short-term general hospital (02) | DRG 853 ==
LOC: ER 15:03 → 2ND 15:29
PROVIDERS: Family Medicine; Nurse Practitioner Family; Admitting Provider Emergency Medicine; Emergency Provider Emergency Medicine; PCP Emergency Medicine; Visit Provider Emergency Medicine
DX: A41.9 Sepsis, unspecified organism (principal); J96.01 Acute respiratory failure with hypoxia; N17.9 Acute kidney failure, unspecified; L02.415 Cutaneous abscess of right lower limb; L03.113 Cellulitis of right upper limb; L03.115 Cellulitis of right lower limb; R65.20 Severe sepsis without septic shock; F17.210 Nicotine dependence, cigarettes, uncomplicated; F41.9 Anxiety disorder, unspecified; F32.A Depression, unspecified; Z20.822 Contact with and (suspected) exposure to COVID-19; E78.5 Hyperlipidemia, unspecified; M19.90 Unspecified osteoarthritis, unspecified site; E11.21 Type 2 diabetes mellitus with diabetic nephropathy; K21.9 Gastro-esophageal reflux disease without esophagitis
CPT/HCPCS: 11042 ×2; 11043; 11046; 36415; 51702; 71045; 73610; 73700; 74176; 76770; 80048; 80053; 80202; 81001; 82550; 82803; 82962; 83605; 83880; 84145; 85025; 85651; 86140; 87040; 93005; 93970; 94640; 94761; 96365; 96366; 97110; 97162; 97166; 99291; C9803; J0696; J2020; U0003; U0005

== ENCOUNTER 2021-08-07 10:04 | Emergency (ER) | payer MEDICAID, SELFPAY ==
[2021-08-07] VITALS (15 sets, daily range): BP systolic 57–170; BP diastolic 34–97; PULSE 66–78; RESP 16–28; TEMP 31.8–32.3; O2SAT 87–100; BMI 52.4; BMI 55.7
--- NOTE | 2021-08-07 10:12 | PC.NURSE ---
medical records requested from [facility]
--- NOTE | 2021-08-07 10:17 | HMH.EDGENADL ---
ED Disposition Clinical Impression: Septic shock, ESRD (end stage renal disease) Neutropenia Qualifiers: Neutropenia type: other Qualified Code(s): D70.8 - Other neutropenia Disposition: Xfer Critical Access Hosp Condition on Discharge: Critical Referrals: Provider,Referral, MD [Referring] - Forms: Work/School Release, Transfer Record - ED - Critical Care Critical Care Time: Yes Attestation: On 08/07/21, the high probability of a clinically significant, sudden or life threatening deterioration of the following system(s) required my full and direct attention, intervention and personal management. The time I documented below is in addition to time spent performing reported procedures but includes the following listed in this critical care notation. Total Critical Care Time: 60 Vital system(s) involved:: Circulatory Failure, Respiratory Failure, Renal Failure, Shock (Septic) My critical care processes included: Assessment & monitoring of V/S, Initial and Re-exams, Data Review/Interpretation, Coordinating Care, Medication Orders and management, Documentation Medical Decision Making - Medical Records Medical records reviewed: Yes: I reviewed the patient's medical records. - [place] Inquiry Pt receiving controlled substance: No Vital Signs: 08/07/21 10:05 08/07/21 10:37 08/07/21 10:51 Temperature 89.4 F L Temperature Source Rectal Pulse Rate 70 70 Pulse Rate [Radial] 78 Respiratory Rate 28 H 16 16 Blood Pressure 81/35 L 94/59 L Blood Pressure [Right Arm] 94/51 L Blood Pressure Mean 53 79 Blood Pressure Mean [Right Arm] 65 Blood Pressure Position [Right Arm] Sitting 02 Sat by Pulse Oximetry 87 L 88 L 88 L Oxygen Delivery Method Nasal Cannula Venturi Mask Venturi Mask Oxygen Flow Rate (LPM) 6 50 50 08/07/21 11:01 08/07/21 11:24 08/07/21 11:31 Temperature Temperature Source Pulse Rate 70 70 70 Pulse Rate [Radial] Respiratory Rate 16 18 18 Blood Pressure 76/34 L 87/46 L 57/44 L Blood Pressure [Right Arm] Blood Pressure Mean 48 53 45 Blood Pressure Mean [Right Arm] Blood Pressure Position [Right Arm] 02 Sat by Pulse Oximetry 87 L 87 L 88 L Oxygen Delivery Method Venturi Mask Oxygen Flow Rate (LPM) 08/07/21 11:50 08/07/21 11:53 08/07/21 12:01 Temperature Temperature Source Pulse Rate 70 70 76 Pulse Rate [Radial] Respiratory Rate 18 18 16 Blood Pressure 74/42 L 89/49 L 75/45 L Blood Pressure [Right Arm] Blood Pressure Mean 45 61 55 Blood Pressure Mean [Right Arm] Blood Pressure Position [Right Arm] 02 Sat by Pulse Oximetry 88 L 88 L 93 L Oxygen Delivery Method Venturi Mask Venturi Mask Oxygen Flow Rate (LPM) 08/07/21 12:20 08/07/21 12:31 Temperature Temperature Source Pulse Rate 66 66 Pulse Rate [Radial] Respiratory Rate 18 22 Blood Pressure 163/70 H 170/97 H Blood Pressure [Right Arm] Blood Pressure Mean 108 116 Blood Pressure Mean [Right Arm] Blood Pressure Position [Right Arm] 02 Sat by Pulse Oximetry 100 97 Oxygen Delivery Method Mechanical Ventilation Mechanical Ventilation Oxygen Flow Rate (LPM) - Lab Data Lab results reviewed: Yes: I reviewed the patient's lab results. Lab Results 08/07/21 10:15: WBC 2.3 L, Corrected WBC 2.0 L, RBC 2.75 L, Hgb 8.5 L, Hct 27.2 L, MCV 99.0, MCH 31.1, MCHC 31.4 L, RDW 23.5 H, Plt Count 128 L, MPV 9.3, Neut % (Auto) 27.7 L, Lymph % (Auto) 66.7 H, Knox % (Auto) 3.1, Eos % (Auto) 1.3, Baso % (Auto) 1.3, Neut # (Auto) 0.6 L*, Lymph # (Auto) 1.5, Knox # (Auto) 0.1, Eos # (Auto) 0.0, Baso # (Auto) 0.0, Total Counted 100, Neutrophils % (Manual) 37 L, Band Neutrophils % 11.0 H, Lymphocytes % (Manual) 46, Monocytes % (Manual) 4, Eosinophils % (Manual) 2, Nucleated RBCs 17, Platelet Estimate Slight decrease, RBC Morphology Not Reportable, Hypochromasia 2+, Poikilocytosis 1+, Anisocytosis 2+, Microcytosis 1+, Macrocytosis 1+, Ovalocytes 1+ 08/07/21 10:15: Sodium 144, Potassium 4.6, Chlori
--- NOTE | 2021-08-07 10:30 | XR_ITS ---
FINAL REPORT CLINICAL HISTORY: SOA COMPARISON: July 03, 2021 FINDINGS: SINGLE VIEW CHEST A right-sided deep line terminates at the cavoatrial junction. The heart size is enlarged. There is pulmonary vascular congestion. The mediastinum is within normal limits. There is right basilar opacity that could represent atelectasis or pneumonia. There is no evidence of pneumothorax. The bony thorax is intact. IMPRESSION: Cardiomegaly with pulmonary vascular congestion. Right basilar atelectasis or pneumonia. Reviewed, Interpreted and Dictated by Matt Campos III, MD Transcribed by Juan Grissom Authenticated by Matt Campos III, MD on 08/07/2021 12:54:28 PM [facility]
--- NOTE | 2021-08-07 10:34 | CA_ITS ---
FINAL REPORT CLINICAL HISTORY: SOA,EDEMA FINDINGS: Color Doppler, duplex Doppler and compression sonography of the bilateral lower extremities was performed. There is no evidence of deep venous thrombosis from the level of the groin to the calf. The deep veins are patent and compressible. IMPRESSION: No evidence of deep venous thrombosis bilateral lower extremities. Reviewed, Interpreted and Dictated by Matt Campos III, MD Transcribed by Juan Grissom Authenticated by Matt Campos III, MD on 08/07/2021 12:54:37 PM [facility]
[2021-08-07 10:51] LABS: Basophils % 1.3 % (0.1-2.0); Chloride 106 mmol/L (98-107); Eosinophils % 1.3 % (0.1-12.0); Hematocrit 27.2 % (37.0-47.0); Hemoglobin 8.5 g/dL (12.2-16.2); Lymphocytes # 1.5 K/mm3 (0.7-4.5); Lymphocytes % 66.7 % (10-50); Mean Corpuscular HGB Conc 31.4 g/dL (31.8-35.4); Mean Corpuscular Hemoglobin 31.1 pg (27.0-31.2); Mean Platelet Volume 9.3 fl (7.4-10.4); Monocytes # 0.1 K/mm3 (0.1-1.0); Monocytes % 3.1 % (1.7-9.3); Neutrophils # 0.6 K/mm3 (1.8-7.8); Neutrophils % 27.7 % (37.0-80.0); Platelet Count 128 K/mm3 (142-424); Potassium 4.6 mmoL/L (3.5-5.1); Red Blood Count 2.75 M/mm3 (4.20-5.40); Red Cell Distribution Width 23.5 % (11.5-17.5); Sodium 144 mmol/L (136-145); White Blood Count 2.3 K/mm3 (4.8-10.8)
[2021-08-07 10:52] LABS: MANUAL DIFFERENTIAL MANUAL DIFFERENTIAL (MANUAL DIFF)
[2021-08-07 10:53] LABS: Alanine Aminotransferase 40 U/L (12-78); Aspartate Amino Transferase 32 U/L (14-36); Blood Urea Nitrogen 38 mg/dl (7-17); Creatinine Clearance Estimated 12 mL/min (50-200); Estimated Glomerular Filt Rate 9 ml/min (>60); GFR (African American) 11 ML/MIN (>60)
[2021-08-07 10:54] LABS: Albumin Level 2.6 g/dl (3.5-5.0); Alkaline Phosphatase 61 U/L (38-126); Anion Gap 15.6 mEq/L (5-15); Bilirubin,Total 0.5 mg/dl (0.2-1.3); Carbon Dioxide 27 mmol/L (22.0-30.0); Globulin 2.7 g/dL (1.3-3.2); Glucose 102 mg/dl (74-100); Total Protein,Serum 5.3 g/dl (6.3-8.2)
[2021-08-07 10:59] LABS: C-Reactive Protein 102.4 mg/L (0-4)
--- NOTE | 2021-08-07 11:00 | PC.NURSE ---
pt keeps taking off her tamara mask. staff has told pt multiple times to keep mask in place
[2021-08-07 11:01] LABS: Lactic Acid 5.1 mmol/L (0.7-2.1)
[2021-08-07 11:05] LABS: NT Pro Brain Natriuretic Pep. 1760 pg/mL (0-125)
[2021-08-07 11:11] LABS: Troponin I < 0.01 ng/ml (0.00-0.034)
[2021-08-07 11:12] LABS: Eosinophils % 2 % (0-3); Lymphocytes % 46 % (10-50); Monocytes % 4 % (2-9); Neutrophils % 37 % (42-76); Nucleated Red Blood Cells 17; Total Cells Counted 100
--- NOTE | 2021-08-07 11:12 | PC.NURSE ---
Called data warehouse analyst for one on one for pt.
[2021-08-07 11:13] LABS: Anisocytosis 2+; Hypochromasia 2+; Macrocytosis 1+; Microcytosis 1+; Ovalocytes 1+; Platelet Estimate Slight Decrease; Poikilocytosis 1+
--- NOTE | 2021-08-07 11:20 | PC.NURSE ---
leandrorn at sitting one on one with pt r/t restraints. elda rodney also at bs r/t pt care. will continue to monitor
--- NOTE | 2021-08-07 11:29 | PC.NURSE ---
[facility] called for transfer, MD on with management coordinator
--- NOTE | 2021-08-07 11:34 | PC.NURSE ---
per [facility] paper work pt is allergic to vancomycin. Notified ER MD and pharmacy - spoke with Lily, she suggested daptomycin since pt has listed allergy to vancomycin. Notified ER MD of pharmacy recommendation of antibiotics contacted [facility] to verify pt allergies. spoke with mayda who states pt when pt was d/c from [facility] back to [facility] pt returned with a listed allergy to vancomycin with no further information
--- NOTE | 2021-08-07 11:37 | PC.NURSE ---
[facility] called for possible transfer, MD on with hospitalist.
--- NOTE | 2021-08-07 11:41 | PC.NURSE ---
cv lab staff at
--- NOTE | 2021-08-07 11:44 | PC.NURSE ---
[facility] accepting pt, they request her be intubated prior to leaving [facility]
--- NOTE | 2021-08-07 12:15 | PC.NURSE ---
levophed drip increased to 6mg/hr
[2021-08-07 12:17] LABS: Microscopic, Urine URINE MICROSCOPIC (MICROSCOPIC)
[2021-08-07 12:22] LABS: ABG Base Excess -0.9 mmol/L (-2.4-2.3); ABG HCO3 25.9 mmhg (22.0-26.0); ABG Oxygen Saturation 99 % (90-100); ABG PH 7.27 mmol/L (7.35-7.45); ABG PO2 177.4 mmhg (80-100); ABG TCO2 27.7 mmhg (23-27); Allen's Test Patient Unable; Oxygen 100 %; PEEP 5; Source Left Radial; Tidal Volume 440; Vent Rate 18
[2021-08-07 12:24] LABS: ABG PCO2 57.5 mmhg (35.0-45.0)
[2021-08-07 12:35] LABS: Appearance,Urine CLEAR (Clear); Blood, Urine Negative (Negative); Glucose,Urine (UA) Negative (Negative); Ketones,Urine Negative (Negative); Leukocyte Esterase,Urine Negative (Negative); Nitrate,Urine Negative (Negative); Protein,Urine 2+ (Negative); Specific Gravity, Urine >= 1.030 (1.005-1.030); Urobilinogen,Urine 0.2 EU/dl (0.2)
--- NOTE | 2021-08-07 12:35 | XR_ITS ---
FINAL REPORT CLINICAL HISTORY: ET PLACEMENT COMPARISON: 2 hours prior and July 03, 2021 FINDINGS: SINGLE VIEW CHEST Endotracheal tube is present with the tip 2 cm superior to the monica. The superior thorax is incompletely imaged. A right-sided deep line terminates at the cavoatrial junction. The heart size is enlarged. There is pulmonary vascular congestion. The mediastinum is within normal limits. Right basilar opacity could represent atelectasis or pneumonia. There is no evidence of pneumothorax. The bony thorax is intact. IMPRESSION: ET tube terminates 2 cm superior to the monica. Cardiomegaly with pulmonary vascular congestion. Right basilar atelectasis or pneumonia. Reviewed, Interpreted and Dictated by Matt Campos III, MD Transcribed by Juan Grissom Authenticated by Matt Campos III, MD on 08/07/2021 12:54:28 PM [facility]
[2021-08-07 12:39] LABS: Bilirubin,Urine 1+ (Negative); Color,Urine Dark Yellow (Yellow)
--- NOTE | 2021-08-07 12:54 | ECG_ITS ---
APPROVED REPORT Exam: Resting ECG HR:67 bpm ECG Measurements Heart Rate 67 AXES HI 205 P 61 QRSd 114 QRS 55 QT 448 T 89 QTc 463 Conclusion SINUS RHYTHM MODERATE INTRAVENTRICULAR CONDUCTION DELAY [110+ ms QRS DURATION] BORDERLINE ECG UNCONFIRMED REPORT Electronically signed by : Gary Hines MD 08/08/2021 08:43:42
[2021-08-07 12:55] LABS: RBC,Urine Occasional #/hpf (0-3); Squamous Epithelial Cell,Urine Occasional #/hpf (0-5)
[2021-08-07 12:56] LABS: Amorphous Sediment,Urine 1+ /lpf; Bacteria,Urine 4+ /lpf; Calcium Oxalate Crystals,Urine 2+ /lpf; Yeast,Urine 4+ /lpf
[2021-08-07 13:00] LABS: Coronavirus 19, PCR Not Detected (NotDetected); Influenza A, PCR Not Detected (NotDetected)
--- NOTE | 2021-08-07 13:00 | PC.NURSE ---
levophed increased to 8mg/hr
--- NOTE | 2021-08-07 13:00 | PC.NURSE ---
versed drip increased to 0.04mcg/kg/hr
[2021-08-07 13:01] LABS: Influenza B, PCR Not Detected (NotDetected)
--- NOTE | 2021-08-07 14:02 | PC.NURSE ---
pt transport delayed r/t EMS is unavailable to transport pt at this time r/t another emergency run. [facility] is aware of need for pt transport.
[2021-08-07 14:42] LABS: Reflex Lactic Add Lactic Reflex
== END 2021-08-07 18:37 | disposition short-term general hospital (02) ==
PROVIDERS: Emergency Provider Emergency Medicine; PCP Emergency Medicine
DX: J96.91 Respiratory failure, unspecified with hypoxia (principal); A41.9 Sepsis, unspecified organism; I10 Essential (primary) hypertension; F41.8 Other specified anxiety disorders; D70.8 Other neutropenia; K21.9 Gastro-esophageal reflux disease without esophagitis; N18.6 End stage renal disease; E11.65 Type 2 diabetes mellitus with hyperglycemia; E78.5 Hyperlipidemia, unspecified; Z72.0 Tobacco use; Z79.899 Other long term (current) drug therapy
CPT/HCPCS: 31500; 51702; 71045; 80053; 81001; 82803; 83605; 83735; 83880; 84484; 85007; 85025; 86140; 87040; 87070; 87077; 87086; 87186; 87205; 93005; 93970; 96365; 96375; 96376; 99291; C9803; J0330; U0003; U0005